=== PATIENT | female | born 1945 | race African-American/Black ===

== ENCOUNTER 2017-11-17 18:20 | Inpatient (IN) | payer OTHER ==
--- NOTE | 2017-11-17 18:23 | PDOC ---
Rapid Medical Evaluation Time Seen by Provider: 11/17/17 18:21 Medical Evaluation: 11/17/17 18:22 I have performed a brief in-person evaluation of this patient. The patient presents with a chief complaint of: "someone from [facility] called and told me to come to the ER, i think they said something about my liver and that it was crucial that i go tot he [facility], they want someone here to call the office and dr. [facility] said he wants to be called." patient reports "i'm just tired from trying to get here fast." denies abd pain, vomiting, fever, chills, diarrhea. +chronic back pain hx of HTN, COPD, IDDM, HLD Pertinent physical exam findings: well appearing, I have ordered the following: CBC, CMP, ekg The patient will proceed to the ED for further evaluation. Discharge Disposition - Diagnosis Abnormal laboratory test - Referrals Referrals: Ju Mayer MD [Primary Care Provider] - - Patient Instructions - Post Discharge Activity
[2017-11-17 19:24] LABS: BASO % 0.6 % (0-2.0); EOS % 2.7 % (0-4.5); HEMATOCRIT 39.6 % (32.4-45.2); HEMOGLOBIN 13.2 GM/dL (10.7-15.3); LYMPH % 34.3 % (8-40); MCH 30.3 pg (25.7-33.7); MCHC 33.3 g/dl (32.0-36.0); MEAN CELL VOLUME 91.2 fl (80-96); MEAN PLT VOLUME 8.7 fl (7.5-11.1); MONO % 12.7 % (3.8-10.2); NEUT % 49.7 % (42.8-82.8); PLATELET COUNT 96 K/MM3 (134-434); RBC 4.34 M/mm3 (3.60-5.2); RDW 14.6 % (11.6-15.6); WHITE BLOOD COUNT 7.5 K/mm3 (4.0-10.0)
[2017-11-17 19:51] LABS: ALBUMIN 3.3 g/dl (3.4-5.0); ANION GAP 8 (8-16); BILIRUBIN,TOTAL 4.2 mg/dL (0.2-1.0); BLOOD UREA NITROGEN 19 mg/dL (7-18); CALCIUM 8.3 mg/dL (8.5-10.1); CHLORIDE 101 mmol/L (98-107); CO2 25 mmol/L (21-32); CREATININE 1.2 mg/dL (0.55-1.02); GLUCOSE,RANDOM 282 mg/dL (74-106); POTASSIUM 3.9 mmol/L (3.5-5.1); SODIUM 134 mmol/L (136-145); TOT PROT 7.9 g/dl (6.4-8.2)
[2017-11-17 19:52] LABS: SGPT/ALT 806 U/L (12-78)
[2017-11-17 19:57] LABS: ALK PHOS 317 U/L (45-117); SGOT/AST 1362 U/L (15-37)
--- NOTE | 2017-11-17 20:00 | PDOC ---
History of Present Illness - General History Source: Patient Exam Limitations: No Limitations - History of Present Illness Initial Comments: 11/17/17 20:15 The patient is a 72 year old female with a significant PMH of HTN, hyperlipidemia, COPD, and insulin-dependent diabetes, who presents to the emergency department after being referred by Dr. Cook office for evaluation of abnormal labs. The patient reports getting labs drawn on 11/11/2017 and receiving a call on 11/15/[address] Cook office that her labs were abnormal and to present to the ED. The patient has no other complaints. The patient denies chest pain, shortness of breath, headache and dizziness. Denies fever, chills, nausea, vomit, diarrhea and constipation. Denies dysuria, frequency, urgency and hematuria. Allergies: NKA Past surgical history: Umbilical hernia repair. Social history: Former smoker. No reported alcohol or drug use. PCP: Dr. Melendez <Melquiades Alcazar - Last Filed: 11/17/17 21:34> - General History Source: Patient <Jesse Garza - Last Filed: 11/18/17 19:16> - General Chief Complaint: Revisit, Lab Variance Stated Complaint: PCP SENT/EVALUATION Time Seen by Provider: 11/17/17 18:21 Past History <Melquiades Alcazar - Last Filed: 11/17/17 21:34> - Past Medical History COPD: Yes Diabetes: Yes HTN: Yes Hypercholesterolemia: Yes Liver Disease: (??) - Surgical History Abdominal Surgery: Yes (hernia) - Suicide/Smoking/Psychosocial Hx Smoking History: Never smoked If you are a former smoker, when did you quit?: 5 years Information on smoking cessation initiated: No Hx Alcohol Use: No Drug/Substance Use Hx: No Substance Use Type: None <Jesse Garza - Last Filed: 11/18/17 19:16> - Past Medical History Allergies/Adverse Reactions: Allergies Allergy/AdvReac Type Severity Reaction Status Date / Time No Known Allergies Allergy Verified 11/17/17 18:27 Review of Systems - Review of Systems Able to Perform ROS?: Yes All Other Systems: Reviewed and Negative (Patient has no complaints) <Melquiades Alcazar - Last Filed: 11/17/17 21:34> *Physical Exam - Vital Signs Last Vital Signs Temp Pulse Resp BP Pulse Ox 98.3 F 90 19 100/55 96 11/17/17 18:23 02 18:23 11/17/17 18:23 11/17/17 18:23 11/17/17 18:23 - Physical Exam Comments: 11/17/17 20:16 GENERAL: Well developed, well nourished. Awake and alert. No acute distress. HEENT: Normocephalic, atraumatic. PERRLA, EOMI. No conjunctival pallor. Sclera are non- icteric. Moist mucous membranes. Oropharynx is clear. NECK: Supple. Full ROM. No JVD. Carotid pulses 2+ and symmetric, without bruits. No thyromegaly. No lymphadenopathy. CARDIOVASCULAR: Regular rate and rhythm. No murmurs, rubs, or gallops. Distal pulses are 2+ and symmetric. PULMONARY: No evidence of respiratory distress. Lungs clear to auscultation bilaterally. No wheezing, rales or rhonchi. ABDOMINAL: Soft. Non-tender. Non-distended. No rebound or guarding. No organomegaly. Normoactive bowel sounds. MUSCULOSKELETAL Normal range of motion at all joints. No bony deformities or tenderness. No CVA tenderness. EXTREMITIES: No cyanosis. No clubbing. No edema. No calf tenderness. SKIN: Warm and dry. Normal capillary refill. No rashes. No jaundice. NEUROLOGICAL: Alert, awake, appropriate. Cranial nerves 2-12 intact. No deficits to light touch and temperature in face, upper extremities and lower extremities. No motor deficits in the in face, upper extremities and lower extremities. Normoreflexic in the upper and lower extremities. Normal speech. Toes are downgoing bilaterally. Gait is normal without ataxia. PSYCHIATRIC: Cooperative. Good eye contact. Appropriate mood and affect. <Melquiades Alcazar - Last Filed: 11/17/17 21:34> - Vital Signs Last Vital Signs Temp Pulse Resp BP Pulse Ox 98.3 F 90 19 100/55 96 11/17/17 18:23 11/17/17 18:23 11/17/17 18:23 11/17/17 18:23 11/17/17 18:23 <Jesse Garza - Last Filed: 11/18/17 19:16> Heart Score/ECG Review #1 11/17/17 21:34 Vent rate 73 bpm Normal sinus rhythm ST & T wave abnormality, consider anterolateral ischemia Abnormal ECG <Melquiades Alcazar - Last Filed: 11/17/17 21:34> ED Treatment Course - LABORATORY CBC & Chemistry Diagram: 11/17/17 18:53 11/17/17 18:42 - ADDITIONAL ORDERS Additional order review: Laboratory Results 11/17/17 18:42 Sodium 134 L Potassium 3.9 Chloride 101 Carbon Dioxide 25 Anion Gap 8 BUN 19 H Creatinine 1.2 H Creat Clearance w eGFR 44.29 Random Glucose 282 H Calcium 8.3 L Total Bilirubin 4.2 H AST 1362 H ALT 806 H Alkaline Phosphatase 317 H Total Protein 7.9 Albumin 3.3 L 11/17/17 18:53 RBC 4.34 MCV 91.2 MCHC 33.3 RDW 14.6 MPV 8.7 Neutrophils % 49.7 Lymphocytes % 34.3 Monocytes % 12.7 H Eosinophils % 2.7 Basophils % 0.6 <Melquiades Alcazar - Last Filed: 11/17/17 21:34> - LABORATORY CBC & Chemistry Diagram: 11/18/17 06:20 11/18/17 06:20 - ADDITIONAL ORDERS Additional order review: Laboratory Results 11/17/17 18:42 Sodium 134 L Potassium 3.9 Chloride 101 Carbon Dioxide 25 Anion Gap 8 BUN 19 H Creatinine 1.2 H Creat Clearance w eGFR 44.29 Random Glucose 282 H Calcium 8.3 L Total Bilirubin 4.2 H AST 1362 H ALT 806 H Alkaline Phosphatase 317 H Total Protein 7.9 Albumin 3.3 L 11/17/17 18:53 RBC 4.34 MCV 91.2 MCHC 33.3 RDW 14.6 MPV 8.7 Neutrophils % 49.7 Lymphocytes % 34.3 Monocytes % 12.7 H Eosinophils % 2.7 Basophils % 0.6 <Jesse Garza - Last Filed: 11/18/17 19:16> Medical Decision Making - Medical Decision Making 11/18/17 19:16 Dr. Garza: The scribe's documentation has been prepared under my direction and personally reviewed by me in its entirery. I confirm that the note above accurately reflects all work, treatment, procedures, and medical decision making performed by me. <Jesse Garza - Last Filed: 11/18/17 19:16> *DC/Admit/Observation/Transfer - Attestations Scribe Attestion: 11/17/17 20:17 Documentation prepared by Melquiades Alcazar, acting as medical technologist chemistry for Jesse Garza DO. <Melquiades Alcazar - Last Filed: 11/17/17 21:34> - Discharge Dispostion Admit: Yes <Jesse Garza - Last Filed: 11/18/17 19:16> Diagnosis at time of Disposition: Abnormal laboratory test, Elevated transaminase level - Discharge Dispostion Condition at time of disposition: Stable
[2017-11-17 23:23] LABS: URINE APPEARANCE SLCLOUDY; URINE BILIRUBIN NEGATIVE (NEGATIVE); URINE BLOOD NEGATIVE (NEGATIVE); URINE COLOR DKYELLOW; URINE GLUCOSE (UA) 1+ (NEGATIVE); URINE KETONE NEGATIVE (NEGATIVE); URINE LEUK ESTERASE NEGATIVE (NEGATIVE); URINE NITRITE NEGATIVE (NEGATIVE); URINE PROTEIN NEGATIVE (NEGATIVE); URINE UROBILINOGEN 4.0 E.U/dl mg/dL (0.2-1.0)
--- NOTE | 2017-11-17 23:53 | HP ---
Admitting History and Physical - Primary Care Physician PCP: Ju Melendez - Admission Chief Complaint: Abnormal Lab Values History of Present Illness: This is a 72 y/o woman with a past medical history of HTN, HLD, COPD, IDDM. Who presents to the ED sent in by her PMD for abnormal lab values- Transaminits. Patient reports having dark "orange-brown urine" for 6 weeks. Patient also reports having back pain which is progressively worse. Patient denies having abnormal liver function tests in the past. Patient denies abdominal pain, N/V/D , constipation. Patient denies fever, chills, cough, SOB, CP. History Source: Patient Limitations to Obtaining History: No Limitations - Past Medical History Cardiovascular: Yes: HTN, Hyperlipdemia Pulmonary: Yes: COPD Endocrine: Yes: Diabetes Mellitus - Past Surgical History Past Surgical History: Yes: Hernia Repair (Umbilical) - Smoking History Smoking history: Never smoked If you are a former smoker, when did you quit?: 5 years - Alcohol/Substance Use Hx Alcohol Use: No History of Substance Use: reports: None - Social History Usual Living Arrangement: Yes: Alone ADL: Independent (ambulates with walker) Occupation: retired History of Recent Travel: No Home Medications - Allergies Allergies/Adverse Reactions: Allergies Allergy/AdvReac Type Severity Reaction Status Date / Time No Known Allergies Allergy Verified 11/17/17 18:27 - Home Medications Home Medications (free text): olmesartan/amlodipine/HCTZ 40-10-25 mg po daily. Donepezil 5mg po daily. Asa 81mg po daily. Loratidine 10mg po daily. MVI 1 tab po daily. Toujeo 26 units SQ am. Toujeo 20 units SQ pm. Pro Air 180mcg 2 puffs inh Q6h PRN. Symbicort 160mcg/4.5 mcg inh Q12h. Floanse 1 spray each nare BID. Atorvastatin 40mg po daily Family Disease History - Family Disease History Family Disease History: Diabetes: Grandparent (Breast), Heart Disease: Grandparent, CA: Grandparent, Mother (Breast), Other: Daughter (L- Breast Nodules , 2nd Daughter- Hypothyroid) Review of Systems - Review of Systems Constitutional: reports: No Symptoms Eyes: reports: No Symptoms HENT: reports: No Symptoms Neck: reports: No Symptoms Cardiovascular: reports: No Symptoms Respiratory: reports: No Symptoms Gastrointestinal: reports: No Symptoms Genitourinary: reports: Other (dark brown- orange urine) Breasts: reports: No Symptoms Reported Musculoskeletal: reports: Back Pain Integumentary: reports: No Symptoms Neurological: reports: No Symptoms Endocrine: reports: No Symptoms Hematology/Lymphatic: reports: No Symptoms Psychiatric: reports: No Symptoms Physical Examination Vital Signs: Vital Signs Temperature 98.3 F 11/17/17 18:23 Pulse Rate 90 11/17/17 18:23 Respiratory Rate 19 11/17/17 18:23 Blood Pressure 100/55 11/17/17 18:23 O2 Sat by Pulse Oximetry (%) 96 11/17/17 18:23 Constitutional: Yes: Well Nourished, No Distress, Obese Eyes: Yes: WNL, Conjunctiva Clear, EOM Intact, PERRL HENT: Yes: WNL, Atraumatic, Normocephalic Neck: Yes: WNL, Supple, Trachea Midline Cardiovascular: Yes: WNL, Regular Rate and Rhythm, S1, S2 Respiratory: Yes: WNL, Regular, CTA Bilaterally Gastrointestinal: Yes: Normal Bowel Sounds, Abdomen, Obese, Distention, Hepatomegaly. No: Tenderness, Tenderness, Epigastrium, Tenderness, Rebound ...Rectal Exam: Yes: Deferred Renal/: Yes: WNL Breast(s): Yes: WNL Musculoskeletal: Yes: Back Pain Extremities: Yes: WNL Edema: No Peripheral Pulses WNL: Yes Integumentary: Yes: WNL Neurological: Yes: WNL, Alert, Oriented, Cran Nerves II-XII Intact ...Motor Strength: WNL Psychiatric: Yes: WNL, Alert, Oriented Labs: CBC, BMP 11/17/17 18:53 11/17/17 18:42 Laboratory Results - last 24 hr 11/17/17 11/17/17 11/17/17 18:40 18:42 18:53 WBC 7.5 RBC 4.34 Hgb 13.2 Hct 39.6 MCV 91.2 MCH 30.3 MCHC 33.3 RDW 14.6 Plt Count 96 L MPV 8.7 Neutrophils % 49.7 Lymphocytes % 34.3 Monocytes % 12.7 H Eosinophils % 2.7 Basophils % 0.6 Sodium 134 L Potassium 3.9 Chloride 101 Carbon Dioxide 25 Anion Gap 8 BUN 19 H Creatinine 1.2 H Creat Clearance w eGFR 44.29 POC Glucometer Random Glucose 282 H Calcium 8.3 L Ferritin Total Bilirubin 4.2 H AST 1362 H ALT 806 H Alkaline Phosphatase 317 H Total Protein 7.9 Albumin 3.3 L Urine Color Urine Appearance Urine pH Ur Specific [place] Urine Protein Urine Glucose (UA) Urine Ketones Urine Blood Urine Nitrite Urine Bilirubin Urine Urobilinogen Ur Leukocyte Esterase Acetaminophen < 2.0 L 11/17/17 11/18/17 11/18/17 23:08 06:20 06:20 WBC 7.7 RBC 4.13 Hgb 12.2 Hct 37.5 MCV 90.9 MCH 29.5 MCHC 32.5 RDW 14.7 Plt Count 89 L MPV 8.4 Neutrophils % 49.2 Lymphocytes % 33.5 Monocytes % 13.2 H Eosinophils % 3.3 Basophils % 0.8 Sodium 137 Potassium 3.6 Chloride 104 Carbon Dioxide 25 Anion Gap 8 BUN 15 Creatinine 1.0 Creat Clearance w eGFR 54.66 POC Glucometer Random Glucose 145 H Calcium 8.2 L Ferritin Total Bilirubin 4.4 H AST 1429 H ALT 761 H Alkaline Phosphatase 280 H Total Protein 7.3 Albumin 3.0 L Urine Color Dkyellow Urine Appearance Slcloudy Urine pH 5.0 Ur Specific [place] 1.006 Urine Protein Negative Urine Glucose (UA) 1+ H Urine Ketones Negative Urine Blood Negative Urine Nitrite Negative Urine Bilirubin Negative Urine Urobilinogen 4.0 e.u/dl H Ur Leukocyte Esterase Negative Acetaminophen 11/18/17 11/18/17 06:23 08:45 WBC RBC Hgb Hct MCV MCH MCHC RDW Plt Count MPV Neutrophils % Lymphocytes % Monocytes % Eosinophils % Basophils % Sodium Potassium Chloride Carbon Dioxide Anion Gap BUN Creatinine Creat Clearance w eGFR POC Glucometer 155 Random Glucose Calcium Ferritin 5014.020 H Total Bilirubin AST ALT Alkaline Phosphatase Total Protein Albumin Urine Color Urine Appearance Urine pH Ur Specific [place] Urine Protein Urine Glucose (UA) Urine Ketones Urine Blood Urine Nitrite Urine Bilirubin Urine Urobilinogen Ur Leukocyte Esterase Acetaminophen Intake & Output 11/15/17 11/16/17 11/17/17 11/18/17 23:59 23:59 23:59 23:59 Intake Total 126 Balance 126 Weight 74.843 kg 78.698 kg Imaging - Results Chest X-ray: Image Reviewed Ultrasound: Image Reviewed EKG: Pending Problem List - Problems (1) Elevated transaminase level Code(s): R74.0 - NONSPEC ELEV OF LEVELS OF TRANSAMNS & LACTIC ACID DEHYDRGNSE (2) Cholestasis Code(s): K83.1 - OBSTRUCTION OF BILE DUCT (3) Abnormal laboratory test Code(s): R89.9 - UNSP ABNORMAL FINDING IN SPECIMENS FROM OTH ORG/TISS (4) HTN (hypertension) Code(s): I10 - ESSENTIAL (PRIMARY) HYPERTENSION (5) HLD (hyperlipidemia) Code(s): E78.5 - HYPERLIPIDEMIA, UNSPECIFIED (6) COPD (chronic obstructive pulmonary disease) Code(s): J44.9 - CHRONIC OBSTRUCTIVE PULMONARY DISEASE, UNSPECIFIED (7) IDDM (insulin dependent diabetes mellitus) Code(s): E11.9 - TYPE 2 DIABETES MELLITUS WITHOUT COMPLICATIONS; Z79.4 - [facility] (CURRENT) USE OF INSULIN (8) DVT prophylaxis Code(s): COJ4913 - Assessment/Plan This is a 72 y/o woman with a PMHx of: HTN, HLD, COPD, IDDM. Admitted for Acute Transaminitis with Cholestasis Plan: 1. Acute Transaminitis - Likely due to stone vs medications vs Hepatitis - Abdominal US- pending - Appreciate GI Consult - Hepatitis Panel in am - Will hold- Tribenzor, Loratidine, Atorvastatin secondary to hepatic impairment - Will hold all po meds until eval by GI - Repeat CMP in am - Monitor vitals - Clear Diet - Consider MRC r/o cholangitis 2. JANE - Gentle IVF - Repeat CMP in am 3. Hypertension - Stable - Monitor BP - Hold Tribenzor 2/2 hepatic impairment - Consider Atenolol - Consider Cardiac consult for recommendations 4. COPD - Stable - Continue home meds 5. Hyperlipidemia - Hold Atorvastatin secondary to transaminitis 6. Diabetes Mellitus - Stable - BGMs - Resume home meds when diet is resumed 7. F/E/N - NS@42cc/hr - Replete lytes prn - Clear Diet- Na, ADA 8. DVT Prophylaxis - OOB - SCDs - Heparin SQ Code Status: Full Code Dispo: Requires Inpatient Care Visit type - Emergency Visit Emergency Visit: Yes ED Registration Date: 11/17/17 Care time: The patient presented to the Emergency Department on the above date and was hospitalized for further evaluation of their emergent condition. - New Patient This patient is new to me today: Yes Date on this admission: 11/17/17 - Critical Care Critical Care patient: No
[2017-11-18] MEDS: SODIUM CHLORIDE 1,000 ML IV SCH ×3 (00:59→22:11)
[2017-11-18 04:00] VITALS: BMI 30.7
[2017-11-18 07:26] LABS: BASO % 0.8 % (0-2.0); EOS % 3.3 % (0-4.5); HEMATOCRIT 37.5 % (32.4-45.2); HEMOGLOBIN 12.2 GM/dL (10.7-15.3); LYMPH % 33.5 % (8-40); MCH 29.5 pg (25.7-33.7); MCHC 32.5 g/dl (32.0-36.0); MEAN CELL VOLUME 90.9 fl (80-96); MEAN PLT VOLUME 8.4 fl (7.5-11.1); MONO % 13.2 % (3.8-10.2); NEUT % 49.2 % (42.8-82.8); PLATELET COUNT 89 K/MM3 (134-434); RBC 4.13 M/mm3 (3.60-5.2); RDW 14.7 % (11.6-15.6); WHITE BLOOD COUNT 7.7 K/mm3 (4.0-10.0)
--- NOTE | 2017-11-18 08:42 | CON.GI ---
Consult - History of Present Illness Chief Complaint: transaminitis with cholestasis History of Present Illness: Chart reviewed This is a 72 y/o woman with a past medical history of HTN, HLD, COPD, IDDM. Who presents to the ED sent in by her PMD for abnormal lab values- Transaminits. AST >1300, ALT 800, ALP 300, TBili 4. Patient reports having dark "orange-brown urine" for 6 weeks. Reports no dysphagia, odynophagia, dyspepsia, jaundice, weight loss, fever. Patient denies having abnormal liver function tests in the past. Reports no new medications, or changes in dosages of existing medications. Reports no OTC, herbals,. Denies ETOH, elicit drug use now, or in the past. No history of obvious risk factors for viral hepatitis. Negative for autoimmune, genetic liver disease family history. US of the liver showed features consistent with chronic liver disease. - History Source History Provided By: Patient, Medical Record Limitations to Obtaining History: No Limitations - Alcohol/Substance Use Hx Alcohol Use: No - Smoking History Smoking history: Former smoker Have you smoked in the past 12 months: No If you are a former smoker, when did you quit?: 5 years ago Home Medications - Allergies Allergies/Adverse Reactions: Allergies Allergy/AdvReac Type Severity Reaction Status Date / Time No Known Allergies Allergy Verified 11/17/17 18:27 Family Disease History - Family Disease History Family History: Unremarkable Review of Systems Findings/Remarks: As per HPI, H&P Physical Exam-GI Vital Signs: Vital Signs Temperature 100.1 F H 11/18/17 06:26 Pulse Rate 65 11/18/17 06:00 Respiratory Rate 20 11/18/17 06:00 Blood Pressure 133/81 11/18/17 06:00 O2 Sat by Pulse Oximetry (%) 97 11/18/17 03:30 Constitutional: Yes: Well Nourished, No Distress, Calm Eyes: Yes: Conjunctiva Clear HENT: Yes: Atraumatic Neck: Yes: Supple Cardiovascular: Yes: Regular Rate and Rhythm Respiratory: Yes: Regular Gastrointestinal Inspection: No: Ascites, Distention ...Auscultate: Yes: Normoactive Bowel Sounds ...Palpate: Yes: Soft. No: Firm/Rigid, Guarding, Mass, Tenderness, Tenderness, Epigastium, Tenderness, Rebound Neurological: Yes: Alert, Oriented Labs: CBC, BMP 11/18/17 06:20 Laboratory Tests 11/17/17 11/17/17 11/17/17 18:40 18:42 18:53 WBC 7.5 RBC 4.34 Hgb 13.2 Hct 39.6 MCV 91.2 MCH 30.3 MCHC 33.3 RDW 14.6 Plt Count 96 L MPV 8.7 Neutrophils % 49.7 Lymphocytes % 34.3 Monocytes % 12.7 H Eosinophils % 2.7 Basophils % 0.6 Sodium 134 L Potassium 3.9 Chloride 101 Carbon Dioxide 25 Anion Gap 8 BUN 19 H Creatinine 1.2 H Creat Clearance w eGFR 44.29 POC Glucometer Random Glucose 282 H Calcium 8.3 L Ferritin Total Bilirubin 4.2 H AST 1362 H ALT 806 H Alkaline Phosphatase 317 H Total Protein 7.9 Albumin 3.3 L Urine Color Urine Appearance Urine pH Ur Specific [place] Urine Protein Urine Glucose (UA) Urine Ketones Urine Blood Urine Nitrite Urine Bilirubin Urine Urobilinogen Ur Leukocyte Esterase Acetaminophen < 2.0 L IgG CMV IgM Ab Hepatitis A IgM Ab Hepatitis A Ab Total Hep Bs Antigen Hep Bs Antibody Hep B Core Total Ab Hep B Core IgM Ab Hepatitis C Antibody VZV IgG Antibody VZV DNA (PCR) 11/17/17 11/18/17 11/18/17 23:08 06:20 06:20 WBC 7.7 RBC 4.13 Hgb 12.2 Hct 37.5 MCV 90.9 MCH 29.5 MCHC 32.5 RDW 14.7 Plt Count 89 L MPV 8.4 Neutrophils % 49.2 Lymphocytes % 33.5 Monocytes % 13.2 H Eosinophils % 3.3 Basophils % 0.8 Sodium 137 Potassium 3.6 Chloride 104 Carbon Dioxide 25 Anion Gap 8 BUN 15 Creatinine 1.0 Creat Clearance w eGFR 54.66 POC Glucometer Random Glucose 145 H Calcium 8.2 L Ferritin Total Bilirubin 4.4 H AST 1429 H ALT 761 H Alkaline Phosphatase 280 H Total Protein 7.3 Albumin 3.0 L Urine Color Dkyellow Urine Appearance Slcloudy Urine pH 5.0 Ur Specific [place] 1.006 Urine Protein Negative Urine Glucose (UA) 1+ H Urine Ketones Negative Urine Blood Negative Urine Nitrite Negative Urine Bilirubin Negative Urine Urobilinogen 4.0 e.u/dl H Ur Leukocyte Esterase Negative Acetaminophen IgG CMV IgM Ab Hepatitis A IgM Ab Hepatitis A Ab Total Hep Bs Antigen Hep Bs Antibody Hep B Core Total Ab Hep B Core IgM Ab Hepatitis C Antibody VZV IgG Antibody VZV DNA (PCR) 11/18/17 11/18/17 11/18/17 06:20 06:23 08:45 WBC RBC Hgb Hct MCV MCH MCHC RDW Plt Count MPV Neutrophils % Lymphocytes % Monocytes % Eosinophils % Basophils % Sodium Potassium Chloride Carbon Dioxide Anion Gap BUN Creatinine Creat Clearance w eGFR POC Glucometer 155 Random Glucose Calcium Ferritin Total Bilirubin AST ALT Alkaline Phosphatase Total Protein Albumin Urine Color Urine Appearance Urine pH Ur Specific [place] Urine Protein Urine Glucose (UA) Urine Ketones Urine Blood Urine Nitrite Urine Bilirubin Urine Urobilinogen Ur Leukocyte Esterase Acetaminophen IgG CMV IgM Ab < 30.0 Hepatitis A IgM Ab Negative Hepatitis A Ab Total Negative Hep Bs Antigen Negative Negative Hep Bs Antibody Non reactive Hep B Core Total Ab Negative Hep B Core IgM Ab Negative Hepatitis C Antibody 0.1 VZV IgG Antibody VZV DNA (PCR) 11/18/17 11/18/17 11/18/17 08:45 08:45 08:45 WBC RBC Hgb Hct MCV MCH MCHC RDW Plt Count MPV Neutrophils % Lymphocytes % Monocytes % Eosinophils % Basophils % Sodium Potassium Chloride Carbon Dioxide Anion Gap BUN Creatinine Creat Clearance w eGFR POC Glucometer Random Glucose Calcium Ferritin 5014.020 H Total Bilirubin AST ALT Alkaline Phosphatase Total Protein Albumin Urine Color Urine Appearance Urine pH Ur Specific [place] Urine Protein Urine Glucose (UA) Urine Ketones Urine Blood Urine Nitrite Urine Bilirubin Urine Urobilinogen Ur Leukocyte Esterase Acetaminophen IgG 2140 H CMV IgM Ab Hepatitis A IgM Ab Hepatitis A Ab Total Hep Bs Antigen Hep Bs Antibody Hep B Core Total Ab Hep B Core IgM Ab Hepatitis C Antibody <0.1 VZV IgG Antibody > 4000 VZV DNA (PCR) Cancelled 11/18/17 11/18/17 11/18/17 11:53 16:40 22:05 WBC RBC Hgb Hct MCV MCH MCHC RDW Plt Count MPV Neutrophils % Lymphocytes % Monocytes % Eosinophils % Basophils % Sodium Potassium Chloride Carbon Dioxide Anion Gap BUN Creatinine Creat Clearance w eGFR POC Glucometer 298 386 228 Random Glucose Calcium Ferritin Total Bilirubin AST ALT Alkaline Phosphatase Total Protein Albumin Urine Color Urine Appearance Urine pH Ur Specific [place] Urine Protein Urine Glucose (UA) Urine Ketones Urine Blood Urine Nitrite Urine Bilirubin Urine Urobilinogen Ur Leukocyte Esterase Acetaminophen IgG CMV IgM Ab Hepatitis A IgM Ab Hepatitis A Ab Total Hep Bs Antigen Hep Bs Antibody Hep B Core Total Ab Hep B Core IgM Ab Hepatitis C Antibody VZV IgG Antibody VZV DNA (PCR) 11/19/17 06:26 WBC RBC Hgb Hct MCV MCH MCHC RDW Plt Count MPV Neutrophils % Lymphocytes % Monocytes % Eosinophils % Basophils % Sodium Potassium Chloride Carbon Dioxide Anion Gap BUN Creatinine Creat Clearance w eGFR POC Glucometer 129 Random Glucose Calcium Ferritin Total Bilirubin AST ALT Alkaline Phosphatase Total Protein Albumin Urine Color Urine Appearance Urine pH Ur Specific [place] Urine Protein Urine Glucose (UA) Urine Ketones Urine Blood Urine Nitrite Urine Bilirubin Urine Urobilinogen Ur Leukocyte Esterase Acetaminophen IgG CMV IgM Ab Hepatitis A IgM Ab Hepatitis A Ab Total Hep Bs Antigen Hep Bs Antibody Hep B Core Total Ab Hep B Core IgM Ab Hepatitis C Antibody VZV IgG Antibody VZV DNA (PCR) Imaging - Results Ultrasound: Report Reviewed Problem List - Problems (1) Cholestasis Code(s): K83.1 - OBSTRUCTION OF BILE DUCT (2) Transaminitis Code(s): R74.0 - NONSPEC ELEV OF LEVELS OF TRANSAMNS & LACTIC ACID DEHYDRGNSE (3) Elevated transaminase level Code(s): R74.0 - NONSPEC ELEV OF LEVELS OF TRANSAMNS & LACTIC ACID DEHYDRGNSE Assessment/Plan A 72 yof with abnormla liver pannel. Hepatocellular pattern with cholestasis in settings of no apparent events to suspect ischemic, toxic, drug, or viral hepatitis. R/o autoimmune, genetic etiologies. Metabolic syndrome, ARVIZU, NAFLD is likely present, however it usually presets milder transaminitis. Stop all non-essential medications Blood tests ordered to evaluate for viral, autoimmune, and genetic etiologies. MRCP/MRI pending blood work results.
[2017-11-18 08:43] LABS: CHLORIDE 104 mmol/L (98-107); POTASSIUM 3.6 mmol/L (3.5-5.1); SODIUM 137 mmol/L (136-145)
[2017-11-18 08:58] LABS: ALK PHOS 280 U/L (45-117); ANION GAP 8 (8-16); BILIRUBIN,TOTAL 4.4 mg/dL (0.2-1.0); BLOOD UREA NITROGEN 15 mg/dL (7-18); CALCIUM 8.2 mg/dL (8.5-10.1); CO2 25 mmol/L (21-32); GLUCOSE,RANDOM 145 mg/dL (74-106); TOT PROT 7.3 g/dl (6.4-8.2)
[2017-11-18 08:59] LABS: SGOT/AST 1429 U/L (15-37); SGPT/ALT 761 U/L (12-78)
[2017-11-18] MEDS ORDERED: INSULIN (NOVOLOG) ASPART 100 UNITS/ML 10ML VIAL ONE ×2 (11:57→22:01)
[2017-11-18] MEDS: BUDESONIDE/FORMETEROL FUMARATE 160/4.5 mcg INHALER IH SCH ×2 (12:03→22:07)
[2017-11-18] MEDS: FLUTICASONE PROP 0.05% 16 GM NASAL SPRAY NS SCH ×2 (12:04→22:06)
--- NOTE | 2017-11-18 12:09 | EKG ---
Test Reason : Blood Pressure : / mmHG Vent. Rate : 073 BPM Atrial Rate : 073 BPM P-R Int : 186 ms QRS Dur : 088 ms QT Int : 426 ms P-R-T Axes : 062 -26 103 degrees QTc Int : 469 ms POOR DATA QUALITY, INTERPRETATION MAY BE ADVERSELY AFFECTED NORMAL SINUS RHYTHM ABNORMAL ECG WHEN COMPARED WITH ECG OF 24-JUN-2011 07:29, PREMATURE ATRIAL COMPLEXES ARE NO LONGER PRESENT NONSPECIFIC T WAVE ABNORMALITY NO LONGER EVIDENT IN INFERIOR LEADS T WAVE INVERSION MORE EVIDENT IN ANTERIOR LEADS QT HAS LENGTHENED Confirmed by MUSTAPHA SANTIAGO MD ([id number]) on 11/18/2017 12:08:49 PM Referred By: Confirmed By:MUSTAPHA SANTIAGO MD
[2017-11-18] MEDS ORDERED: PT OWN MED DRAWER 7, Y5N ONE (12:20)
--- NOTE | 2017-11-18 13:19 | PN ---
Progress Note, Physician Chief Complaint: awake alert complaining of right sided ear ache - Current Medication List Current Medications: Active Medications Budesonide/Formoterol Fumarate (Symbicort 160/4.5mcg -) 1 puff IH BID [facility] Last Admin: 11/18/17 12:03 Dose: 1 puff Fluticasone Propionate (Flonase -) 1 spray NS BID [facility] Last Admin: 11/18/17 12:04 Dose: 1 spray Sodium Chloride (Normal Saline -) 1,000 mls @ 42 mls/hr IV ASDIR [facility] Last Admin: 11/18/17 11:04 Dose: 42 mls/hr - Objective Vital Signs: Vital Signs Temperature 99.6 F 11/18/17 10:00 Pulse Rate 92 H 11/18/17 10:00 Respiratory Rate 18 11/18/17 10:00 Blood Pressure 146/58 11/18/17 10:00 O2 Sat by Pulse Oximetry (%) 97 11/18/17 09:00 Constitutional: Yes: Calm Cardiovascular: Yes: Regular Rate and Rhythm, S1, S2 Respiratory: Yes: CTA Bilaterally Gastrointestinal: Yes: Normal Bowel Sounds, Soft Edema: No Labs: CBC, BMP 11/18/17 06:20 11/18/17 06:20 Problem List - Problems (1) Abnormal laboratory test Assessment/Plan: appreicate GI note work up in progress Code(s): R89.9 - UNSP ABNORMAL FINDING IN SPECIMENS FROM OTH ORG/TISS (2) Elevated transaminase level Assessment/Plan: ultrasound noted testing to r/o celiac,hepatitis, has been ordered avoid hepatotoxic agents Code(s): R74.0 - NONSPEC ELEV OF LEVELS OF TRANSAMNS & LACTIC ACID DEHYDRGNSE (3) Ear ache Assessment/Plan: ENT Code(s): H92.09 - OTALGIA, UNSPECIFIED EAR (4) IDDM (insulin dependent diabetes mellitus) Assessment/Plan: sliding scale Code(s): E11.9 - TYPE 2 DIABETES MELLITUS WITHOUT COMPLICATIONS; Z79.4 - SDET (CURRENT) USE OF INSULIN
[2017-11-18] MEDS ORDERED: PNEUMOC 13-VAL CONJ-DIP CRM/PF 0.5 ML DISP.SYRIN IM ONE (14:00)
[2017-11-18] MEDS: INSULIN SLIDING SCALE (NOVOLOG) 1 VIAL SQ SCH (16:41)
--- NOTE | 2017-11-18 17:51 | CON.ENT ---
Consult Consult Specialty:: ENT Referred by:: Dr. Nick Mcdonnell Reason for Consultation:: Right ear pain - History of Present Illness Chief Complaint: right ear pain History of Present Illness: Prior to admission on and off for maybe 3 weeks she has intermittent right otalgia, but feels she hears OK. She denies tinnitus and vertigo. This feeling has continues on/off, lasting seconds. She has a past medical history of HTN, HLD, COPD, IDDM. Who presents to the ED sent in by her PMD for abnormal lab values. Patient reports having dark "orange-brown urine" for 6 weeks. Patient also reports having back pain which is progressively worse. - History Source History Provided By: Patient, Medical Record Limitations to Obtaining History: No Limitations - Past Medical History Cardio/Vascular: Yes: HTN, Hyperlipdemia Pulmonary: Yes: COPD Endocrine: Yes: Diabetes Mellitus - Past Surgical History Past Surgical History: Yes: Hernia Repair (Umbilical) - Alcohol/Substance Use Hx Alcohol Use: No History of Substance Use: reports: None - Smoking History Smoking history: Never smoked Have you smoked in the past 12 months: No If you are a former smoker, when did you quit?: 5 years - Social History ADL: Independent (ambulates with walker) Occupation: retired History of Recent Travel: No Home Medications - Allergies Allergies/Adverse Reactions: Allergies Allergy/AdvReac Type Severity Reaction Status Date / Time No Known Allergies Allergy Verified 11/17/17 18:27 Family Disease History - Family Disease History Family Disease History: Diabetes: Grandparent (Breast), Heart Disease: Grandparent, CA: Grandparent, Mother (Breast), Other: Daughter (L- Breast Nodules , 2nd Daughter- Hypothyroid) Other Family History: 2nd Daughter- Hypothyroid Physical Exam-ENT Vital Signs: Vital Signs Temperature 99.6 F 11/18/17 16:00 Pulse Rate 86 11/18/17 16:00 Respiratory Rate 20 11/18/17 16:00 Blood Pressure 156/74 11/18/17 16:00 O2 Sat by Pulse Oximetry (%) 97 11/18/17 09:00 Constitutional: Yes: Well Nourished, No Distress Head: Yes: WNL, Atraumatic, Normocephalic Face: Yes: WNL, Symmetrical Eyes: Yes: WNL, Conjunctiva Clear Nose: Yes: WNL Nasal Passage: Yes: WNL Oral/Pharynx: Yes: WNL Outer Ear: Yes: WNL Ear Canal: Yes: Cerumen (Right hard wax, with superior air passage, left canal and TM are normal.) Neck: Yes: WNL, Supple Problem List - Problems (1) Otalgia of right ear Assessment/Plan: Right hard wax, will order debrox ear drops and she will see me after discharge for further cleaning and audiometric testing Code(s): H92.01 - OTALGIA, RIGHT EAR
[2017-11-18] MEDS: CARBAMIDE PEROXIDE 6.5% OTIC 15 ML BOTTLE AD SCH (22:07)
[2017-11-19 06:06] LABS: HBSAG SCREEN Negative (Negative); HEP B CORE AB, TOT Negative (Negative)
[2017-11-19] MEDS: SODIUM CHLORIDE 1,000 ML IV SCH ×3 (06:28→21:33)
[2017-11-19] MEDS: INSULIN SLIDING SCALE (NOVOLOG) 1 VIAL SQ SCH ×3 (06:28→17:05)
[2017-11-19 08:07] LABS: CMV IgM < 30.0 AU/mL (0.0-29.9); IGG IMMUNOGLOBULIN 2140 mg/dL (700-1600)
[2017-11-19 09:07] LABS: ALBUMIN 3.1 g/dl (3.4-5.0); ANION GAP 7 (8-16); BILIRUBIN,DIRECT 3.5 mg/dL (0.0-0.2); BILIRUBIN,TOTAL 4.9 mg/dL (0.2-1.0); BLOOD UREA NITROGEN 9 mg/dL (7-18); CALCIUM 8.2 mg/dL (8.5-10.1); CHLORIDE 105 mmol/L (98-107); CO2 28 mmol/L (21-32); CREATININE 1.1 mg/dL (0.55-1.02); GLUCOSE,RANDOM 123 mg/dL (74-106); POTASSIUM 3.9 mmol/L (3.5-5.1); SODIUM 140 mmol/L (136-145); TOT PROT 7.5 g/dl (6.4-8.2)
[2017-11-19 09:13] LABS: ALK PHOS 277 U/L (45-117)
[2017-11-19 09:16] LABS: SGOT/AST 1632 U/L (15-37); SGPT/ALT 817 U/L (12-78)
[2017-11-19] MEDS ORDERED: PT OWN MED DRAWER 7, Y5N ONE (09:23)
--- NOTE | 2017-11-19 09:29 | PN ---
Progress Note, Physician History of Present Illness: No events Comfortable. Transaminitis not improving. - Current Medication List Current Medications: Active Medications Budesonide/Formoterol Fumarate (Symbicort 160/4.5mcg -) 1 puff IH BID [facility] Last Admin: 11/18/17 22:07 Dose: 1 puff Carbamide Perox/Anhydrous Glycerin (Debrox -) 5 drop AD BID [facility] Stop: 11/25/17 21:59 Last Admin: 11/18/17 22:07 Dose: 5 drop Fluticasone Propionate (Flonase -) 1 spray NS BID [facility] Last Admin: 11/18/17 22:06 Dose: 1 spray Sodium Chloride (Normal Saline -) 1,000 mls @ 42 mls/hr IV ASDIR [facility] Last Admin: 11/19/17 08:51 Dose: 42 mls/hr Insulin Aspart (Novolog Vial Sliding Scale -) 1 vial SQ TIDAC [facility] PRN Reason: Protocol Last Admin: 11/19/17 06:28 Dose: Not Given - Objective Vital Signs: Vital Signs Temperature 98.9 F 11/19/17 04:00 Pulse Rate 88 11/19/17 04:00 Respiratory Rate 20 11/19/17 04:00 Blood Pressure 138/75 11/19/17 04:00 O2 Sat by Pulse Oximetry (%) 97 11/18/17 21:00 Constitutional: Yes: No Distress Eyes: Yes: Conjunctiva Clear HENT: Yes: Atraumatic Neck: Yes: Supple Cardiovascular: Yes: Regular Rate and Rhythm Respiratory: Yes: Regular Gastrointestinal: Yes: Soft. No: Melena, Rectal Bleeding, Tenderness, Vomiting Neurological: Yes: Alert, Oriented Labs: CBC, BMP 11/18/17 06:20 11/19/17 07:30 CBCD WBC 7.7 K/mm3 (4.0-10.0) 11/18/17 06:20 RBC 4.13 M/mm3 (3.60-5.2) 11/18/17 06:20 Hgb 12.2 GM/dL (10.7-15.3) 11/18/17 06:20 Hct 37.5 % (32.4-45.2) 11/18/17 06:20 MCV 90.9 fl (80-96) 11/18/17 06:20 MCHC 32.5 g/dl (32.0-36.0) 11/18/17 06:20 RDW 14.7 % (11.6-15.6) 11/18/17 06:20 Plt Count 89 K/MM3 (134-434) L 11/18/17 06:20 MPV 8.4 fl (7.5-11.1) 11/18/17 06:20 CMP Sodium 140 mmol/L (136-145) 11/19/17 07:30 Potassium 3.9 mmol/L (3.5-5.1) 11/19/17 07:30 Chloride 105 mmol/L (98-107) 11/19/17 07:30 Carbon Dioxide 28 mmol/L (21-32) 11/19/17 07:30 Anion Gap 7 (8-16) L 11/19/17 07:30 BUN 9 mg/dL (7-18) 11/19/17 07:30 Creatinine 1.1 mg/dL (0.55-1.02) H 11/19/17 07:30 Creat Clearance w eGFR 48.96 (>60) 11/19/17 07:30 Calcium 8.2 mg/dL (8.5-10.1) L 11/19/17 07:30 Total Bilirubin 4.9 mg/dL (0.2-1.0) H 11/19/17 07:30 AST 1632 U/L (15-37) H 11/19/17 07:30 ALT 817 U/L (12-78) H 11/19/17 07:30 Alkaline Phosphatase 277 U/L (45-117) H 11/19/17 07:30 Total Protein 7.5 g/dl (6.4-8.2) 11/19/17 07:30 Albumin 3.1 g/dl (3.4-5.0) L 11/19/17 07:30 Laboratory Results - last 24 hr 11/18/17 11/18/17 11/18/17 06:20 08:45 08:45 Sodium Potassium Chloride Carbon Dioxide Anion Gap BUN Creatinine Creat Clearance w eGFR POC Glucometer Random Glucose Calcium Ferritin Total Bilirubin Direct Bilirubin AST ALT Alkaline Phosphatase Total Protein Albumin IgG CMV IgM Ab < 30.0 Hepatitis A IgM Ab Negative Hepatitis A Ab Total Negative Hep Bs Antigen Negative Negative Hep Bs Antibody Non reactive Hep B Core Total Ab Negative Hep B Core IgM Ab Negative Hepatitis C Antibody 0.1 <0.1 VZV IgG Antibody VZV DNA (PCR) 11/18/17 11/18/17 11/18/17 08:45 08:45 11:53 Sodium Potassium Chloride Carbon Dioxide Anion Gap BUN Creatinine Creat Clearance w eGFR POC Glucometer 298 Random Glucose Calcium Ferritin 5014.020 H Total Bilirubin Direct Bilirubin AST ALT Alkaline Phosphatase Total Protein Albumin IgG 2140 H CMV IgM Ab Hepatitis A IgM Ab Hepatitis A Ab Total Hep Bs Antigen Hep Bs Antibody Hep B Core Total Ab Hep B Core IgM Ab Hepatitis C Antibody VZV IgG Antibody > 4000 VZV DNA (PCR) Cancelled 11/18/17 11/18/17 11/19/17 16:40 22:05 06:26 Sodium Potassium Chloride Carbon Dioxide Anion Gap BUN Creatinine Creat Clearance w eGFR POC Glucometer 386 228 129 Random Glucose Calcium Ferritin Total Bilirubin Direct Bilirubin AST ALT Alkaline Phosphatase Total Protein Albumin IgG CMV IgM Ab Hepatitis A IgM Ab Hepatitis A Ab Total Hep Bs Antigen Hep Bs Antibody Hep B Core Total Ab Hep B Core IgM Ab Hepatitis C Antibody VZV IgG Antibody VZV DNA (PCR) 11/19/17 07:30 Sodium 140 Potassium 3.9 Chloride 105 Carbon Dioxide 28 Anion Gap 7 L BUN 9 Creatinine 1.1 H Creat Clearance w eGFR 48.96 POC Glucometer Random Glucose 123 H Calcium 8.2 L Ferritin Total Bilirubin 4.9 H Direct Bilirubin 3.5 H AST 1632 H ALT 817 H Alkaline Phosphatase 277 H Total Protein 7.5 Albumin 3.1 L IgG CMV IgM Ab Hepatitis A IgM Ab Hepatitis A Ab Total Hep Bs Antigen Hep Bs Antibody Hep B Core Total Ab Hep B Core IgM Ab Hepatitis C Antibody VZV IgG Antibody VZV DNA (PCR) Problem List - Problems (1) Cholestasis Code(s): K83.1 - OBSTRUCTION OF BILE DUCT (2) Transaminitis Code(s): R74.0 - NONSPEC ELEV OF LEVELS OF TRANSAMNS & LACTIC ACID DEHYDRGNSE (3) Elevated transaminase level Code(s): R74.0 - NONSPEC ELEV OF LEVELS OF TRANSAMNS & LACTIC ACID DEHYDRGNSE Assessment/Plan Avoid non-essential medications Blood tests ordered to evaluate for viral, autoimmune, and genetic etiologies. Await results. MRCP/MRI pending blood work results. Daily CMP, dir. bili, PT/INR
[2017-11-19] MEDS: BUDESONIDE/FORMETEROL FUMARATE 160/4.5 mcg INHALER IH SCH ×2 (09:44→21:32)
[2017-11-19] MEDS: CARBAMIDE PEROXIDE 6.5% OTIC 15 ML BOTTLE AD SCH ×2 (09:44→21:33)
[2017-11-19] MEDS: FLUTICASONE PROP 0.05% 16 GM NASAL SPRAY NS SCH ×2 (09:44→21:32)
--- NOTE | 2017-11-19 10:18 | PN ---
Progress Note, Physician Chief Complaint: no abdominal pain no nausea earache is better getting debrox drops no complaints of back pain - Current Medication List Current Medications: Active Medications Budesonide/Formoterol Fumarate (Symbicort 160/4.5mcg -) 1 puff IH BID [facility] Last Admin: 11/19/17 09:44 Dose: 1 puff Carbamide Perox/Anhydrous Glycerin (Debrox -) 5 drop AD BID [facility] Stop: 11/25/17 21:59 Last Admin: 11/19/17 09:44 Dose: 5 drop Fluticasone Propionate (Flonase -) 1 spray NS BID [facility] Last Admin: 11/19/17 09:44 Dose: 1 spray Sodium Chloride (Normal Saline -) 1,000 mls @ 42 mls/hr IV ASDIR [facility] Last Admin: 11/19/17 08:51 Dose: 42 mls/hr Insulin Aspart (Novolog Vial Sliding Scale -) 1 vial SQ TIDAC [facility] PRN Reason: Protocol Last Admin: 11/19/17 06:28 Dose: Not Given - Objective Vital Signs: Vital Signs Temperature 98.9 F 11/19/17 04:00 Pulse Rate 88 11/19/17 04:00 Respiratory Rate 20 11/19/17 04:00 Blood Pressure 138/75 11/19/17 04:00 O2 Sat by Pulse Oximetry (%) 97 11/18/17 21:00 Constitutional: Yes: Calm Cardiovascular: Yes: Regular Rate and Rhythm, S1, S2 Respiratory: Yes: CTA Bilaterally Gastrointestinal: Yes: Normal Bowel Sounds, Soft Edema: No Neurological: Yes: Alert, Oriented Labs: CBC, BMP 11/18/17 06:20 11/19/17 07:30 Problem List - Problems (1) Abnormal laboratory test Assessment/Plan: appreicate GI note work up in progress avoid all hepatotoxic meds Code(s): R89.9 - UNSP ABNORMAL FINDING IN SPECIMENS FROM OTH ORG/TISS (2) Elevated transaminase level Assessment/Plan: ultrasound noted testing to r/o celiac,hepatitis, has been ordered avoid hepatotoxic agents Code(s): R74.0 - NONSPEC ELEV OF LEVELS OF TRANSAMNS & LACTIC ACID DEHYDRGNSE (3) Ear ache Assessment/Plan: ENT consult noted- right ear - hard wax debrox dropsi n right ear and FU with ENT in one week Code(s): H92.09 - OTALGIA, UNSPECIFIED EAR (4) IDDM (insulin dependent diabetes mellitus) Assessment/Plan: sliding scale hgba1c pending Code(s): E11.9 - TYPE 2 DIABETES MELLITUS WITHOUT COMPLICATIONS; Z79.4 - RESIDENTIAL (CURRENT) USE OF INSULIN
[2017-11-20 04:59] LABS: GLIADIN ANTIBODY IGA 5 units (0-19); GLIADIN ANTIBODY IGG 2 units (0-19); TRANSGLUTAMINASE IGG < 2 U/mL (0-5)
[2017-11-20 06:06] LABS: SERUM IRON SATURATION 45 % (15-55); TOTAL IRON BINDING CAPACITY 237 ug/dL (250-450); UIBC 131 ug/dL (118-369)
[2017-11-20] MEDS: SODIUM CHLORIDE 1,000 ML IV SCH (06:35)
[2017-11-20] MEDS: INSULIN SLIDING SCALE (NOVOLOG) 1 VIAL SQ SCH ×3 (06:36→17:15)
[2017-11-20] MEDS ORDERED: INSULIN (NOVOLOG) ASPART 100 UNITS/ML 10ML VIAL ONE (06:58)
[2017-11-20] MEDS ORDERED: PT OWN MED DRAWER 7, Y5N ONE ×3 (09:05→20:36)
[2017-11-20] MEDS: CARBAMIDE PEROXIDE 6.5% OTIC 15 ML BOTTLE AD SCH ×2 (09:10→21:20)
[2017-11-20] MEDS: BUDESONIDE/FORMETEROL FUMARATE 160/4.5 mcg INHALER IH SCH ×2 (09:10→21:20)
[2017-11-20] MEDS: FLUTICASONE PROP 0.05% 16 GM NASAL SPRAY NS SCH ×2 (09:10→21:20)
[2017-11-20 10:35] LABS: INR 1.27 (0.82-1.09); PROTHROMBIN TIME (PATIENT) 14.4 SEC (9.98-11.88)
[2017-11-20 10:46] LABS: ALBUMIN 2.6 g/dl (3.4-5.0); ALK PHOS 263 U/L (45-117); ANION GAP 6 (8-16); BILIRUBIN,DIRECT 3.5 mg/dL (0.0-0.2); BILIRUBIN,TOTAL 4.5 mg/dL (0.2-1.0); BLOOD UREA NITROGEN 10 mg/dL (7-18); CALCIUM 7.8 mg/dL (8.5-10.1); CHLORIDE 106 mmol/L (98-107); CO2 25 mmol/L (21-32); GLUCOSE,RANDOM 200 mg/dL (74-106); POTASSIUM 3.9 mmol/L (3.5-5.1); SODIUM 137 mmol/L (136-145); TOT PROT 6.6 g/dl (6.4-8.2)
[2017-11-20 10:47] LABS: SGPT/ALT 729 U/L (12-78)
[2017-11-20 10:54] LABS: SGOT/AST 1529 U/L (15-37)
--- NOTE | 2017-11-20 13:32 | PN ---
Progress Note, Physician History of Present Illness: no complaints - Current Medication List Current Medications: Active Medications Budesonide/Formoterol Fumarate (Symbicort 160/4.5mcg -) 1 puff IH BID [facility] Last Admin: 11/20/17 09:10 Dose: 1 puff Carbamide Perox/Anhydrous Glycerin (Debrox -) 5 drop AD BID [facility] Stop: 11/25/17 21:59 Last Admin: 11/20/17 09:10 Dose: 5 drop Fluticasone Propionate (Flonase -) 1 spray NS BID [facility] Last Admin: 11/20/17 09:10 Dose: 1 spray Sodium Chloride (Normal Saline -) 1,000 mls @ 42 mls/hr IV ASDIR [facility] Last Admin: 11/20/17 06:35 Dose: 42 mls/hr Insulin Aspart (Novolog Vial Sliding Scale -) 1 vial SQ TIDAC [facility] PRN Reason: Protocol Last Admin: 11/20/17 13:25 Dose: Not Given - Objective Vital Signs: Vital Signs Temperature 99.9 F H 11/20/17 10:00 Pulse Rate 60 11/20/17 10:00 Respiratory Rate 20 11/20/17 10:00 Blood Pressure 133/70 11/20/17 10:00 O2 Sat by Pulse Oximetry (%) 98 11/19/17 20:17 Cardiovascular: Yes: Regular Rate and Rhythm Respiratory: Yes: Regular, CTA Bilaterally Gastrointestinal: Yes: Normal Bowel Sounds, Soft. No: Tenderness Labs: CBC, BMP 11/18/17 06:20 11/20/17 10:05 INR, PTT INR 1.27 (0.82-1.09) H 11/20/17 10:05 Assessment/Plan - Problems (1) Abnormal laboratory test Assessment/Plan: appreicate GI note work up in progress avoid all hepatotoxic meds Code(s): R89.9 - UNSP ABNORMAL FINDING IN SPECIMENS FROM OTH ORG/TISS (2) Elevated transaminase level Assessment/Plan: ultrasound noted testing to r/o celiac,hepatitis, has been ordered avoid hepatotoxic agents Code(s): R74.0 - NONSPEC ELEV OF LEVELS OF TRANSAMNS & LACTIC ACID DEHYDRGNSE (3) Ear ache Assessment/Plan: ENT consult noted- right ear - hard wax debrox dropsi n right ear and FU with ENT in one week Code(s): H92.09 - OTALGIA, UNSPECIFIED EAR (4) IDDM (insulin dependent diabetes mellitus) Assessment/Plan: sliding scale hgba1c 11 endo Code(s): E11.9 - TYPE 2 DIABETES MELLITUS WITHOUT COMPLICATIONS; Z79.4 - LENS FINISHER (CURRENT) USE OF INSULIN
[2017-11-20 14:09] LABS: VARICELLA-ZOSTER IGM < 0.91 index (0.00-0.90)
--- NOTE | 2017-11-20 16:13 | PN ---
GI Progress Note Subjective: GI Dr. Oleary covering for Dr. Roman No acute events Describes having increasing fatigue and diffuse arthralgias over the last few weeks. Denies tonie Was taking 1 650mg Arthritis medication pill once per day or every other day of late Tells me that she may have been told of possible rheumatoid arthritis in the past and her daughter has a thyroid disorder - Objective Vital Signs: Vital Signs Temperature 98.9 F 11/20/17 14:03 Pulse Rate 67 11/20/17 14:03 Respiratory Rate 18 11/20/17 14:03 Blood Pressure 137/69 11/20/17 14:03 O2 Sat by Pulse Oximetry (%) 98 11/20/17 09:00 Constitutional: Calm Eyes: Yes: Sclera Icterus Cardiovascular: Yes: Regular Rate and Rhythm. No: Murmur Respiratory: Yes: CTA Bilaterally Gastrointestinal Inspection: No: Distention ...Auscultate: Yes: Normoactive Bowel Sounds ...Palpate: No: Hepatomegaly, Splenomegaly, Tenderness ...Percussion: No: Tympanitic Edema: No (No LE edema) Neurological: Yes: Alert, Oriented. 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 H Liver/Kid Microsomes Ab 1.6 Laboratory Tests 11/18/17 11/19/17 08:45 07:30 Iron Saturation 45 Ferritin 5014.020 H Laboratory Tests 11/17/17 11/18/17 11/19/17 18:42 06:20 07:30 Total Bilirubin 4.2 H 4.4 H 4.9 H Direct Bilirubin 3.5 H AST 1362 H 1429 H 1632 H ALT 806 H 761 H 817 H Alkaline Phosphatase 317 H 280 H 277 H Total Protein 7.5 Albumin 3.3 L 3.0 L 3.1 L 11/20/17 10:05 Total Bilirubin 4.5 H Direct Bilirubin 3.5 H AST 1529 H ALT 729 H Alkaline Phosphatase 263 H Total Protein 6.6 Albumin 2.6 L - ....Imaging Ultrasound: Report Reviewed (No ductal dilation or mass lesion) Problem List - Problems (1) Abnormal laboratory test Assessment/Plan: Imp: Hepatocellular liver dysfunction w/ component of cholestasis: LFTs with minimal improvement from yesterday w/ positive autoimmune serologies ( MECCA / ASMA), possible prodrome and family/possible personal h/o autoimmune disease Infectious serologic w/u has been negative to date Autoimmune hepatitis will need to be considered higher in differential. Plan: Monitor LFTS and coags daily Monitor mental status Avoid hepatotoxic agents MRI/MRCP ordered to exclude more subtle biliary tract pathology EBV PCR ordered GGT ordered Quantiferon Gold ordered in preparation for possible immunosuppression for treatment of AIH.Will likely need Liver bx as well if no continued improvement. Discussed w/ Ms. Smith. Code(s): R89.9 - UNSP ABNORMAL FINDING IN SPECIMENS FROM OT ORG/TISS
[2017-11-20] MEDS ORDERED: TUBERCULIN PPD 5 TU/0.1ML SYRINGE (IN PATIENT USE ONLY) ID ONE (17:00)
[2017-11-21] MEDS: SODIUM CHLORIDE 1,000 ML IV SCH ×2 (06:10→06:12)
[2017-11-21] MEDS: INSULIN SLIDING SCALE (NOVOLOG) 1 VIAL SQ SCH ×3 (06:12→17:37)
[2017-11-21 07:04] LABS: ALBUMIN 2.6 g/dl (3.4-5.0)
[2017-11-21 07:11] LABS: BILIRUBIN,DIRECT 3.6 mg/dL (0.0-0.2); BILIRUBIN,TOTAL 4.8 mg/dL (0.2-1.0); TOT PROT 6.8 g/dl (6.4-8.2)
[2017-11-21] MEDS: BUDESONIDE/FORMETEROL FUMARATE 160/4.5 mcg INHALER IH SCH ×2 (09:52→21:36)
[2017-11-21] MEDS: FLUTICASONE PROP 0.05% 16 GM NASAL SPRAY NS SCH ×2 (09:52→21:36)
[2017-11-21] MEDS: CARBAMIDE PEROXIDE 6.5% OTIC 15 ML BOTTLE AD SCH ×2 (09:52→21:36)
[2017-11-21 10:27] LABS: INR 1.27 (0.82-1.09); PROTHROMBIN TIME (PATIENT) 14.4 SEC (9.98-11.88)
[2017-11-21 10:41] LABS: ALBUMIN 2.6 g/dl (3.4-5.0); ANION GAP 6 (8-16); BILIRUBIN,DIRECT 3.8 mg/dL (0.0-0.2); BILIRUBIN,TOTAL 4.9 mg/dL (0.2-1.0); BLOOD UREA NITROGEN 10 mg/dL (7-18); CALCIUM 8.1 mg/dL (8.5-10.1); CHLORIDE 107 mmol/L (98-107); CO2 25 mmol/L (21-32); GLUCOSE,RANDOM 206 mg/dL (74-106); POTASSIUM 3.6 mmol/L (3.5-5.1); SODIUM 138 mmol/L (136-145); TOT PROT 6.9 g/dl (6.4-8.2)
[2017-11-21 10:44] LABS: SGPT/ALT 760 U/L (12-78)
[2017-11-21 10:47] LABS: ALK PHOS 266 U/L (45-117)
[2017-11-21 10:49] LABS: SGOT/AST 1691 U/L (15-37)
--- NOTE | 2017-11-21 14:22 | PN ---
Progress Note, Physician Chief Complaint: abdominal pain History of Present Illness: NAD seen by GI MRI,MRCP pending - Current Medication List Current Medications: Active Medications Budesonide/Formoterol Fumarate (Symbicort 160/4.5mcg -) 1 puff IH BID [facility] Last Admin: 11/21/17 09:52 Dose: 1 puff Carbamide Perox/Anhydrous Glycerin (Debrox -) 5 drop AD BID [facility] Stop: 11/25/17 21:59 Last Admin: 11/21/17 09:52 Dose: 5 drop Fluticasone Propionate (Flonase -) 1 spray NS BID [facility] Last Admin: 11/21/17 09:52 Dose: 1 spray Sodium Chloride (Normal Saline -) 1,000 mls @ 42 mls/hr IV ASDIR [facility] Last Admin: 11/21/17 06:12 Dose: 42 mls/hr Insulin Aspart (Novolog Vial Sliding Scale -) 1 vial SQ TIDAC [facility] PRN Reason: Protocol Last Admin: 11/21/17 12:35 Dose: 4 units - Objective Vital Signs: Vital Signs Temperature 98.2 F 11/21/17 09:02 Pulse Rate 84 11/21/17 09:02 Respiratory Rate 20 11/21/17 09:02 Blood Pressure 136/65 11/21/17 09:02 O2 Sat by Pulse Oximetry (%) 96 11/21/17 09:00 Constitutional: Yes: Well Nourished, No Distress, Calm Cardiovascular: Yes: Regular Rate and Rhythm Respiratory: Yes: Regular Gastrointestinal: Yes: Normal Bowel Sounds, Soft Musculoskeletal: Yes: WNL Extremities: Yes: WNL Edema: No Peripheral Pulses WNL: Yes Neurological: Yes: Alert, Oriented Psychiatric: Yes: Alert, Oriented Labs: CBC, BMP 11/18/17 06:20 11/21/17 09:45 INR, PTT INR 1.27 (0.82-1.09) H 11/21/17 09:45 Problem List - Problems (1) Elevated transaminase level Assessment/Plan: -GI consult -MRI/MRCP Pending -monitor labs Code(s): R74.0 - NONSPEC ELEV OF LEVELS OF TRANSAMNS & LACTIC ACID DEHYDRGNSE (2) HLD (hyperlipidemia) Code(s): E78.5 - HYPERLIPIDEMIA, UNSPECIFIED (3) HTN (hypertension) Assessment/Plan: -improved Code(s): I10 - ESSENTIAL (PRIMARY) HYPERTENSION (4) IDDM (insulin dependent diabetes mellitus) Assessment/Plan: -insulin -endocrinology consult -BGM -diabetic diet -RD consult Code(s): E11.9 - TYPE 2 DIABETES MELLITUS WITHOUT COMPLICATIONS; Z79.4 - RN COMMUNITY (CURRENT) USE OF INSULIN Assessment/Plan See problem list
[2017-11-21 15:09] LABS: BASO % 0.6 % (0-2.0); EOS % 2.8 % (0-4.5); HEMOGLOBIN 12.7 GM/dL (10.7-15.3); LYMPH % 36.8 % (8-40); MCH 30.6 pg (25.7-33.7); MCHC 33.4 g/dl (32.0-36.0); MEAN CELL VOLUME 91.6 fl (80-96); MEAN PLT VOLUME 9.3 fl (7.5-11.1); MONO % 14.6 % (3.8-10.2); NEUT % 45.2 % (42.8-82.8); PLATELET COUNT 102 K/MM3 (134-434); RBC 4.15 M/mm3 (3.60-5.2); RDW 15.6 % (11.6-15.6); WHITE BLOOD COUNT 6.3 K/mm3 (4.0-10.0)
--- NOTE | 2017-11-21 15:37 | PN ---
GI Progress Note Subjective: States being somnolent, otherwise feels well No abdominal pain - Objective Vital Signs: Vital Signs Temperature 98.3 F 11/21/17 14:28 Pulse Rate 60 11/21/17 14:28 Respiratory Rate 18 11/21/17 14:28 Blood Pressure 137/61 11/21/17 14:28 O2 Sat by Pulse Oximetry (%) 96 11/21/17 09:00 Constitutional: Calm Eyes: No: Sclera Icterus Cardiovascular: Yes: Regular Rate and Rhythm Respiratory: Yes: CTA Bilaterally Gastrointestinal Inspection: No: Distention ...Auscultate: Yes: Normoactive Bowel Sounds ...Palpate: No: Hepatomegaly, Splenomegaly Neurological: Yes: Alert, Oriented. No: Asterix[facility] Labs: CBC, BMP 11/21/17 14:30 11/21/17 09:45 INR, PTT INR 1.27 (0.82-1.09) H 11/21/17 09:45 Problem List - Problems (1) Abnormal laboratory test Assessment/Plan: No real improvement in LFTs No ductal dilatation noted on recent US MRI/MRCP still not done as of yet Will start Prednisone 60mg once daily today for presumed AIH and will likely need liver biopsy coags allowing Quantiferon drawn and pending Monitor LFTs Dr. Roman resumes coverage 11/22 Code(s): R89.9 - UNSP ABNORMAL FINDING IN SPECIMENS FROM OTH ORG/TISS
[2017-11-21] MEDS: PANTOPRAZOLE 20 MG TABLET (FP) PO SCH (17:36)
[2017-11-21] MEDS: predniSONE 20 MG TABLET (UD) PO SCH (17:36)
--- NOTE | 2017-11-21 20:13 | CONSULT ---
Consult Consult Specialty:: endocrine Referred by:: dr.annabi almaraz Reason for Consultation:: diabetes mellitus / poor appetite - History of Present Illness Chief Complaint: weak and blood work abnormal History of Present Illness: 72 y/o woman with a past medical history of HTN, HLD, COPD, IDDM. Who presents to the ED sent in by her PMD for abnormal lab values- Transaminits. Patient reports having dark "orange-brown urine" for 6 weeks. Patient also reports having back pain which is progressively worse. found to have high liver enzymes on blood work done by pmd,has not been feeling well and taking insulin dose as needed with pen device.she denies alcohol use,fever,chills nausea or vomiting. - History Source History Provided By: Patient - Past Medical History Cardio/Vascular: Yes: HTN, Hyperlipdemia Pulmonary: Yes: COPD Endocrine: Yes: Diabetes Mellitus - Past Surgical History Past Surgical History: Yes: Hernia Repair (Umbilical) - Alcohol/Substance Use Hx Alcohol Use: No History of Substance Use: reports: None - Smoking History Smoking history: Former smoker Have you smoked in the past 12 months: No If you are a former smoker, when did you quit?: 5 years ago - Social History ADL: Independent (ambulates with walker) Occupation: retired History of Recent Travel: No Home Medications - Allergies Allergies/Adverse Reactions: Allergies Allergy/AdvReac Type Severity Reaction Status Date / Time No Known Allergies Allergy Verified 11/17/17 18:27 Family Disease History - Family Disease History Family Disease History: Diabetes: Grandparent (Breast), Heart Disease: Grandparent, CA: Grandparent, Mother (Breast), Other: Daughter (L- Breast Nodules , 2nd Daughter- Hypothyroid) Other Family History: 2nd Daughter- Hypothyroid Review of Systems - Review of Systems Constitutional: reports: Lethargy, Weakness Eyes: reports: No Symptoms HENT: reports: Nasal Congestion, Ringing in Ears Neck: reports: No Symptoms Cardiovascular: reports: Shortness of Breath Respiratory: reports: Exercise Intolerance, SOB on Exertion Gastrointestinal: reports: Constipation Genitourinary: reports: No Symptoms Breasts: reports: No Symptoms Reported Musculoskeletal: reports: Muscle Cramps Integumentary: reports: No Symptoms Neurological: reports: No Symptoms Endocrine: reports: No Symptoms Physical Exam Vital Signs: Vital Signs Temperature 98.2 F 11/21/17 18:30 Pulse Rate 82 02/11/18 18:30 Respiratory Rate 20 11/21/17 18:30 Blood Pressure 134/60 11/21/17 18:30 O2 Sat by Pulse Oximetry (%) 96 11/21/17 09:00 Constitutional: Yes: Anxious Eyes: Yes: EOM Intact HENT: Yes: Normocephalic Neck: Yes: Trachea Midline Cardiovascular: Yes: Regular Rate and Rhythm Respiratory: Yes: CTA Bilaterally Gastrointestinal: Yes: Normal Bowel Sounds ...Rectal Exam: Yes: Deferred Renal/: Yes: WNL Musculoskeletal: Yes: Back Pain, Muscle Weakness Extremities: Yes: WNL Edema: No Integumentary: Yes: WNL Neurological: Yes: Alert, Oriented Labs: CBC, BMP 11/21/17 14:30 11/21/17 09:45 Problem List - Problems (1) Diabetes Code(s): E11.9 - TYPE 2 DIABETES MELLITUS WITHOUT COMPLICATIONS Qualifiers: Diabetes mellitus type: type 2 (2) Abnormal laboratory test Code(s): R89.9 - UNSP ABNORMAL FINDING IN SPECIMENS FROM OTH ORG/TISS (3) COPD (chronic obstructive pulmonary disease) Code(s): J44.9 - CHRONIC OBSTRUCTIVE PULMONARY DISEASE, UNSPECIFIED (4) Cholestasis Code(s): K83.1 - OBSTRUCTION OF BILE DUCT (5) DVT prophylaxis Code(s): [id number] - (6) Ear ache Code(s): H92.09 - OTALGIA, UNSPECIFIED EAR (7) Elevated transaminase level Code(s): R74.0 - NONSPEC ELEV OF LEVELS OF TRANSAMNS & LACTIC ACID DEHYDRGNSE (8) HLD (hyperlipidemia) Code(s): E78.5 - HYPERLIPIDEMIA, UNSPECIFIED Assessment/Plan Current Active Problems Abnormal laboratory test (Acute) COPD (chronic obstructive pulmonary disease) (Acute) Cholestasis (Acute) Cholestasis (Acute) DVT prophylaxis (Acute) Ear ache (Acute) Elevated transaminase level (Acute) HLD (hyperlipidemia) (Acute) HTN (hypertension) (Acute) IDDM (insulin dependent diabetes mellitus) (Acute) Otalgia of right ear (Acute) Transaminitis (Acute) Abnormal Lab Results 11/21/17 11/21/17 11/21/17 06:25 06:25 09:45 Plt Count Monocytes % PT with INR 14.40 H INR 1.27 H Anion Gap Random Glucose Calcium Total Bilirubin 4.8 H Direct Bilirubin 3.6 H GGT 702 H AST 1647 H ALT 770 H Alkaline Phosphatase 264 H Albumin 2.6 L 11/21/17 11/21/17 09:45 14:30 Plt Count 102 L Monocytes % 14.6 H PT with INR INR Anion Gap 6 L Random Glucose 206 H Calcium 8.1 L Total Bilirubin 4.9 H Direct Bilirubin 3.8 H GGT AST 1691 H ALT 760 H Alkaline Phosphatase 266 H Albumin 2.6 L Laboratory Results - last 24 hr 11/20/17 11/21/17 11/21/17 21:19 06:11 06:25 WBC RBC Hgb Hct MCV MCH MCHC RDW Plt Count MPV Neutrophils % Lymphocytes % Monocytes % Eosinophils % Basophils % PT with INR INR Sodium Potassium Chloride Carbon Dioxide Anion Gap BUN Creatinine Creat Clearance w eGFR POC Glucometer 176 133 Random Glucose Calcium Total Bilirubin 4.8 H Direct Bilirubin 3.6 H GGT AST 1647 H ALT 770 H Alkaline Phosphatase 264 H Total Protein 6.8 Albumin 2.6 L 11/21/17 11/21/17 11/21/17 06:25 09:45 09:45 WBC RBC Hgb Hct MCV MCH MCHC RDW Plt Count MPV Neutrophils % Lymphocytes % Monocytes % Eosinophils % Basophils % PT with INR 14.40 H INR 1.27 H Sodium 138 Potassium 3.6 Chloride 107 Carbon Dioxide 25 Anion Gap 6 L BUN 10 Creatinine 1.0 Creat Clearance w eGFR 54.66 POC Glucometer Random Glucose 206 H Calcium 8.1 L Total Bilirubin 4.9 H Direct Bilirubin 3.8 H GGT 702 H AST 1691 H ALT 760 H Alkaline Phosphatase 266 H Total Protein 6.9 Albumin 2.6 L 11/21/17 11/21/17 11/21/17 11:44 14:30 17:32 WBC 6.3 RBC 4.15 Hgb 12.7 Hct 38.0 MCV 91.6 MCH 30.6 MCHC 33.4 RDW 15.6 Plt Count 102 L MPV 9.3 D Neutrophils % 45.2 Lymphocytes % 36.8 Monocytes % 14.6 H Eosinophils % 2.8 Basophils % 0.6 PT with INR INR Sodium Potassium Chloride Carbon Dioxide Anion Gap BUN Creatinine Creat Clearance w eGFR POC Glucometer 261 243 Random Glucose Calcium Total Bilirubin Direct Bilirubin GGT AST ALT Alkaline Phosphatase Total Protein Albumin plan: bgm q achs novolog insulin dose Laboratory Tests 11/19/17 11/20/17 11/20/17 21:30 06:34 10:05 POC Glucometer 220 153 Random Glucose 200 H 11/20/17 11/20/17 11/20/17 12:01 17:10 21:19 POC Glucometer 202 216 176 Random Glucose levemir 25 units bid as dose may increase while on steroids ck hba1c ck amylase lipase
[2017-11-21] MEDS ORDERED: INSULIN DETEMIR 100 UNITS/ML MDV SQ ONE (20:43)
[2017-11-21 21:30] LABS: AMYLASE 32 U/L (25-115); LIPASE 440 U/L (73-393)
[2017-11-21] MEDS: INSULIN DETEMIR 100 UNITS/ML MDV SQ SCH (21:35)
[2017-11-22] MEDS: SODIUM CHLORIDE 1,000 ML IV SCH ×3 (05:59→21:48)
[2017-11-22] MEDS: INSULIN DETEMIR 100 UNITS/ML MDV SQ SCH ×2 (06:02→21:47)
[2017-11-22] MEDS: INSULIN SLIDING SCALE (NOVOLOG) 1 VIAL SQ SCH ×3 (06:02→17:19)
[2017-11-22 07:31] LABS: BASO % 0.3 % (0-2.0); EOS % 0.1 % (0-4.5); HEMATOCRIT 37.3 % (32.4-45.2); HEMOGLOBIN 12.1 GM/dL (10.7-15.3); MCH 29.9 pg (25.7-33.7); MCHC 32.4 g/dl (32.0-36.0); MEAN CELL VOLUME 92.5 fl (80-96); MEAN PLT VOLUME 8.8 fl (7.5-11.1); MONO % 6.8 % (3.8-10.2); NEUT % 62.8 % (42.8-82.8); PLATELET COUNT 108 K/MM3 (134-434); RBC 4.03 M/mm3 (3.60-5.2); RDW 15.4 % (11.6-15.6); WHITE BLOOD COUNT 5.9 K/mm3 (4.0-10.0)
[2017-11-22 07:48] LABS: ALBUMIN 2.7 g/dl (3.4-5.0); ANION GAP 8 (8-16); BILIRUBIN,DIRECT 3.9 mg/dL (0.0-0.2); BILIRUBIN,TOTAL 4.9 mg/dL (0.2-1.0); BLOOD UREA NITROGEN 15 mg/dL (7-18); CALCIUM 7.9 mg/dL (8.5-10.1); CHLORIDE 102 mmol/L (98-107); CO2 23 mmol/L (21-32); GLUCOSE,RANDOM 287 mg/dL (74-106); SODIUM 133 mmol/L (136-145); TOT PROT 7.3 g/dl (6.4-8.2)
[2017-11-22 07:55] LABS: ALK PHOS 286 U/L (45-117)
[2017-11-22 08:19] LABS: SGOT/AST 1191 U/L (15-37); SGPT/ALT 722 U/L (12-78)
[2017-11-22] MEDS ORDERED: PT OWN MED DRAWER 7, Y5N ONE ×2 (09:03→10:38)
[2017-11-22] MEDS: CARBAMIDE PEROXIDE 6.5% OTIC 15 ML BOTTLE AD SCH ×2 (09:34→21:47)
[2017-11-22] MEDS: BUDESONIDE/FORMETEROL FUMARATE 160/4.5 mcg INHALER IH SCH ×2 (09:34→21:47)
[2017-11-22] MEDS: PANTOPRAZOLE 20 MG TABLET (FP) PO SCH (09:34)
[2017-11-22] MEDS: predniSONE 20 MG TABLET (UD) PO SCH (09:34)
[2017-11-22] MEDS: FLUTICASONE PROP 0.05% 16 GM NASAL SPRAY NS SCH ×2 (09:34→21:47)
[2017-11-22 10:26] LABS: CHLORIDE 102 mmol/L (98-107); SODIUM 130 mmol/L (136-145)
--- NOTE | 2017-11-22 10:44 | PN ---
Progress Note, Physician History of Present Illness: No events Comfortable. Clinically the same - Current Medication List Current Medications: Active Medications Budesonide/Formoterol Fumarate (Symbicort 160/4.5mcg -) 1 puff IH BID [facility] Last Admin: 11/22/17 09:34 Dose: 1 puff Carbamide Perox/Anhydrous Glycerin (Debrox -) 5 drop AD BID [facility] Stop: 11/25/17 21:59 Last Admin: 11/22/17 09:34 Dose: 5 drop Fluticasone Propionate (Flonase -) 1 spray NS BID [facility] Last Admin: 11/22/17 09:34 Dose: 1 spray Sodium Chloride (Normal Saline -) 1,000 mls @ 42 mls/hr IV ASDIR [facility] Last Admin: 11/22/17 06:05 Dose: 42 mls/hr Insulin Aspart (Novolog Vial Sliding Scale -) 1 vial SQ TIDAC [facility] PRN Reason: Protocol Last Admin: 11/22/17 06:02 Dose: 4 units Insulin Detemir (Levemir Vial) 20 units SQ BID@0700,2200 [facility] Last Admin: 11/22/17 06:02 Dose: 20 units Pantoprazole Sodium (Protonix -) 20 mg PO DAILY [facility] Last Admin: 11/22/17 09:34 Dose: 20 mg Prednisone (Deltasone -) 60 mg PO DAILY [facility] Last Admin: 11/22/17 09:34 Dose: 60 mg - Objective Vital Signs: Vital Signs Temperature 97.5 F L 11/22/17 09:37 Pulse Rate 84 11/22/17 09:37 Respiratory Rate 20 11/22/17 09:37 Blood Pressure 122/80 11/22/17 09:37 O2 Sat by Pulse Oximetry (%) 96 11/21/17 21:00 Constitutional: Yes: Well Nourished, No Distress, Calm Eyes: Yes: Conjunctiva Clear HENT: Yes: Atraumatic Neck: Yes: Supple Cardiovascular: Yes: Regular Rate and Rhythm Respiratory: Yes: Regular Gastrointestinal: Yes: Normal Bowel Sounds, Soft Neurological: Yes: Alert, Oriented. No: Asterixis, Lethargy, Tremors Labs: CBC, BMP 11/22/17 06:20 11/22/17 09:50 INR, PTT INR 1.27 (0.82-1.09) H 11/21/17 09:45 CBCD WBC 5.9 K/mm3 (4.0-10.0) 11/22/17 06:20 RBC 4.03 M/mm3 (3.60-5.2) 11/22/17 06:20 Hgb 12.1 GM/dL (10.7-15.3) 11/22/17 06:20 Hct 37.3 % (32.4-45.2) 11/22/17 06:20 MCV 92.5 fl (80-96) 11/22/17 06:20 MCHC 32.4 g/dl (32.0-36.0) 11/22/17 06:20 RDW 15.4 % (11.6-15.6) 11/22/17 06:20 Plt Count 108 K/MM3 (134-434) L 11/22/17 06:20 MPV 8.8 fl (7.5-11.1) 11/22/17 06:20 CMP Sodium 130 mmol/L (136-145) L 11/22/17 09:50 Potassium 4.0 mmol/L (3.5-5.1) 11/22/17 09:50 Chloride 102 mmol/L (98-107) 11/22/17 09:50 Carbon Dioxide 23 mmol/L (21-32) 11/22/17 06:20 Anion Gap 8 (8-16) 11/22/17 06:20 BUN 15 mg/dL (7-18) 11/22/17 06:20 Creatinine 1.0 mg/dL (0.55-1.02) 11/22/17 06:20 Creat Clearance w eGFR 54.66 (>60) 11/21/17 09:45 Calcium 7.9 mg/dL (8.5-10.1) L 11/22/17 06:20 Total Bilirubin 4.9 mg/dL (0.2-1.0) H 11/22/17 06:20 AST 1191 U/L (15-37) H 11/22/17 06:20 ALT 722 U/L (12-78) H 11/22/17 06:20 Alkaline Phosphatase 286 U/L (45-117) H 11/22/17 06:20 Total Protein 7.3 g/dl (6.4-8.2) 11/22/17 06:20 Albumin 2.7 g/dl (3.4-5.0) L 11/22/17 06:20 Abnormal Lab Results 11/21/17 11/21/17 11/21/17 09:45 09:45 14:30 Plt Count 102 L Monocytes % 14.6 H PT with INR 14.40 H INR 1.27 H Sodium Anion Gap 6 L Random Glucose 206 H Calcium 8.1 L Total Bilirubin 4.9 H Direct Bilirubin 3.8 H AST 1691 H ALT 760 H Alkaline Phosphatase 266 H Albumin 2.6 L Lipase 11/21/17 11/22/17 11/22/17 20:55 06:20 06:20 Plt Count 108 L Monocytes % PT with INR INR Sodium 133 L Anion Gap Random Glucose 287 H Calcium 7.9 L Total Bilirubin 4.9 H Direct Bilirubin 3.9 H AST 1191 H ALT 722 H Alkaline Phosphatase 286 H Albumin 2.7 L Lipase 440 H 11/22/17 09:50 Plt Count Monocytes % PT with INR INR Sodium 130 L Anion Gap Random Glucose Calcium Total Bilirubin Direct Bilirubin AST ALT Alkaline Phosphatase Albumin Lipase Problem List - Problems (1) Cholestasis Code(s): K83.1 - OBSTRUCTION OF BILE DUCT (2) Transaminitis Code(s): R74.0 - NONSPEC ELEV OF LEVELS OF TRANSAMNS & LACTIC ACID DEHYDRGNSE (3) Elevated transaminase level Code(s): R74.0 - NONSPEC ELEV OF LEVELS OF TRANSAMNS & LACTIC ACID DEHYDRGNSE (4) Autoimmune hepatitis Code(s): K75.4 - AUTOIMMUNE HEPATITIS (5) Autoimmune hepatitis treated with steroids Code(s): K75.4 - AUTOIMMUNE HEPATITIS Assessment/Plan Avoid non-essential medications Labs better this am, day 2 of steroids. MRI, quantiferon pending Daily CMP, dir. bili, PT/INR
[2017-11-22 10:47] LABS: INR 1.29 (0.82-1.09); PROTHROMBIN TIME (PATIENT) 14.6 SEC (9.98-11.88)
[2017-11-22 10:48] LABS: ALK PHOS 307 U/L (45-117); ANION GAP 8 (8-16); BILIRUBIN,DIRECT 3.7 mg/dL (0.0-0.2); BILIRUBIN,TOTAL 4.8 mg/dL (0.2-1.0); BLOOD UREA NITROGEN 15 mg/dL (7-18); CO2 20 mmol/L (21-32); GLUCOSE,RANDOM 300 mg/dL (74-106); TOT PROT 7.9 g/dl (6.4-8.2)
[2017-11-22 10:55] LABS: SGOT/AST 1148 U/L (15-37); SGPT/ALT 726 U/L (12-78)
[2017-11-22] MEDS ORDERED: INSULIN (NOVOLOG) ASPART 100 UNITS/ML 10ML VIAL ONE (11:42)
--- NOTE | 2017-11-22 13:33 | PN ---
Progress Note, Physician Chief Complaint: pateint complaining of the skin itchiness around the nose MRI done - Current Medication List Current Medications: Active Medications Budesonide/Formoterol Fumarate (Symbicort 160/4.5mcg -) 1 puff IH BID [facility] Last Admin: 11/22/17 09:34 Dose: 1 puff Carbamide Perox/Anhydrous Glycerin (Debrox -) 5 drop AD BID [facility] Stop: 11/25/17 21:59 Last Admin: 11/22/17 09:34 Dose: 5 drop Fluticasone Propionate (Flonase -) 1 spray NS BID [facility] Last Admin: 11/22/17 09:34 Dose: 1 spray Sodium Chloride (Normal Saline -) 1,000 mls @ 42 mls/hr IV ASDIR [facility] Last Admin: 11/22/17 06:05 Dose: 42 mls/hr Insulin Aspart (Novolog Vial Sliding Scale -) 1 vial SQ TIDAC [facility] PRN Reason: Protocol Last Admin: 11/22/17 11:51 Dose: 8 units Insulin Detemir (Levemir Vial) 20 units SQ BID@0700,2200 [facility] Last Admin: 11/22/17 06:02 Dose: 20 units Multi-Ingredient Lotion (Eucerin (Small Jar) -) 1 applic TP BID [facility] Pantoprazole Sodium (Protonix -) 20 mg PO DAILY [facility] Last Admin: 11/22/17 09:34 Dose: 20 mg Prednisone (Deltasone -) 60 mg PO DAILY [facility] Last Admin: 11/22/17 09:34 Dose: 60 mg - Objective Vital Signs: Vital Signs Temperature 97.5 F L 11/22/17 09:37 Pulse Rate 84 11/22/17 09:37 Respiratory Rate 20 11/22/17 09:37 Blood Pressure 122/80 11/22/17 09:37 O2 Sat by Pulse Oximetry (%) 96 11/21/17 21:00 Constitutional: Yes: Calm Cardiovascular: Yes: Regular Rate and Rhythm, S1, S2 Respiratory: Yes: CTA Bilaterally Gastrointestinal: Yes: Normal Bowel Sounds, Soft Edema: No Neurological: Yes: Alert, Oriented Labs: CBC, BMP 11/22/17 06:20 11/22/17 09:50 INR, PTT INR 1.29 (0.82-1.09) H 11/22/17 09:50 Problem List - Problems (1) Abnormal laboratory test Assessment/Plan: appreicate GI note work up in progress avoid all hepatotoxic meds MRI done shows cirhosis slight decrease in LFT Code(s): R89.9 - UNSP ABNORMAL FINDING IN SPECIMENS FROM OTH ORG/TISS (2) Elevated transaminase level Assessment/Plan: on prednisone MRI done trend LFT Code(s): R74.0 - NONSPEC ELEV OF LEVELS OF TRANSAMNS & LACTIC ACID DEHYDRGNSE (3) Ear ache Assessment/Plan: ENT consult noted- right ear - hard wax debrox dropsi n right ear and FU with ENT in one week Code(s): H92.09 - OTALGIA, UNSPECIFIED EAR (4) IDDM (insulin dependent diabetes mellitus) Assessment/Plan: sliding scale [id number] pending Code(s): E11.9 - TYPE 2 DIABETES MELLITUS WITHOUT COMPLICATIONS; Z79.4 - [employer]IATE (CURRENT) USE OF INSULIN
[2017-11-22] MEDS: MINERAL OIL/PETROLAT/WATER TOPICAL CREAM 113 GM JAR TP SCH ×2 (17:22→21:55)
[2017-11-23] MEDS: SODIUM CHLORIDE 1,000 ML IV SCH (06:13)
[2017-11-23] MEDS: INSULIN SLIDING SCALE (NOVOLOG) 1 VIAL SQ SCH ×3 (06:17→17:43)
[2017-11-23] MEDS: INSULIN DETEMIR 100 UNITS/ML MDV SQ SCH ×2 (06:18→21:51)
[2017-11-23] MEDS ORDERED: INSULIN (NOVOLOG) ASPART 100 UNITS/ML 10ML VIAL ONE ×2 (06:23→21:09)
[2017-11-23] MEDS: predniSONE 20 MG TABLET (UD) PO SCH (09:45)
[2017-11-23] MEDS: CARBAMIDE PEROXIDE 6.5% OTIC 15 ML BOTTLE AD SCH ×2 (09:45→21:51)
[2017-11-23] MEDS: FLUTICASONE PROP 0.05% 16 GM NASAL SPRAY NS SCH ×2 (09:45→21:46)
[2017-11-23] MEDS: BUDESONIDE/FORMETEROL FUMARATE 160/4.5 mcg INHALER IH SCH ×2 (09:45→21:47)
[2017-11-23] MEDS: PANTOPRAZOLE 20 MG TABLET (FP) PO SCH (09:45)
[2017-11-23] MEDS: MINERAL OIL/PETROLAT/WATER TOPICAL CREAM 113 GM JAR TP SCH ×2 (09:46→21:46)
--- NOTE | 2017-11-23 10:35 | PN ---
Progress Note, Physician Chief Complaint: awake alert no distress was suppose to get cataract surgery on 12/06 she juan get it rescheduled - Current Medication List Current Medications: Active Medications Budesonide/Formoterol Fumarate (Symbicort 160/4.5mcg -) 1 puff IH BID [facility] Last Admin: 11/23/17 09:45 Dose: 1 puff Carbamide Perox/Anhydrous Glycerin (Debrox -) 5 drop AD BID [facility] Stop: 11/25/17 21:59 Last Admin: 11/23/17 09:45 Dose: 5 drop Fluticasone Propionate (Flonase -) 1 spray NS BID [facility] Last Admin: 11/23/17 09:45 Dose: 1 spray Sodium Chloride (Normal Saline -) 1,000 mls @ 42 mls/hr IV ASDIR [facility] Last Admin: 11/23/17 06:13 Dose: 42 mls/hr Insulin Aspart (Novolog Vial Sliding Scale -) 1 vial SQ TIDAC [facility] PRN Reason: Protocol Last Admin: 11/23/17 06:17 Dose: 8 units Insulin Detemir (Levemir Vial) 20 units SQ BID@0700,2200 [facility] Last Admin: 11/23/17 06:18 Dose: 20 units Multi-Ingredient Lotion (Eucerin (Small Jar) -) 1 applic TP BID [facility] Last Admin: 11/23/17 09:46 Dose: 1 applic Pantoprazole Sodium (Protonix -) 20 mg PO DAILY [facility] Last Admin: 11/23/17 09:45 Dose: 20 mg Prednisone (Deltasone -) 60 mg PO DAILY [facility] Last Admin: 11/23/17 09:45 Dose: 60 mg - Objective Vital Signs: Vital Signs Temperature 98.1 F 11/23/17 06:00 Pulse Rate 56 L 11/23/17 06:00 Respiratory Rate 20 11/23/17 06:00 Blood Pressure 114/53 11/23/17 06:00 O2 Sat by Pulse Oximetry (%) 98 11/22/17 20:37 Constitutional: Yes: Calm Neck: Yes: Trachea Midline Cardiovascular: Yes: Regular Rate and Rhythm, S1, S2 Respiratory: Yes: CTA Bilaterally Gastrointestinal: Yes: Normal Bowel Sounds, Soft Edema: No Labs: INR, PTT INR 1.29 (0.82-1.09) H 11/22/17 09:50 Problem List - Problems (1) Abnormal laboratory test Assessment/Plan: appreicate GI note\ on prednisone work up in progress avoid all hepatotoxic meds MRI done shows cirhosis slight decrease in LFT Code(s): R89.9 - UNSP ABNORMAL FINDING IN SPECIMENS FROM OTH ORG/TISS (2) Elevated transaminase level Assessment/Plan: on prednisone MRI done- cirrhosis trend LFT possible autoimminue hepatits MECCA and Anti smooth muscle and DOCTOR OF PODIATRIC MEDICINE antibodies positve Code(s): R74.0 - NONSPEC ELEV OF LEVELS OF TRANSAMNS & LACTIC ACID DEHYDRGNSE (3) Ear ache Assessment/Plan: ENT consult noted- right ear - hard wax debrox dropsi n right ear and FU with ENT in one week Code(s): H92.09 - OTALGIA, UNSPECIFIED EAR (4) IDDM (insulin dependent diabetes mellitus) Assessment/Plan: sliding scale hgba1c 11.1 endocrine note appreciated levemir dose increased to 24 units BID Code(s): E11.9 - TYPE 2 DIABETES MELLITUS WITHOUT COMPLICATIONS; Z79.4 - [employer] EXAM[employer]ER (CURRENT) USE OF INSULIN
[2017-11-23 10:48] LABS: ALBUMIN 2.9 g/dl (3.4-5.0); ANION GAP 8 (8-16); BILIRUBIN,DIRECT 2.2 mg/dL (0.0-0.2); BLOOD UREA NITROGEN 21 mg/dL (7-18); CALCIUM 8.2 mg/dL (8.5-10.1); CHLORIDE 104 mmol/L (98-107); CO2 23 mmol/L (21-32); CREATININE 1.1 mg/dL (0.55-1.02); GLUCOSE,RANDOM 276 mg/dL (74-106); POTASSIUM 3.9 mmol/L (3.5-5.1); SODIUM 135 mmol/L (136-145)
--- NOTE | 2017-11-23 10:48 | PN ---
Progress Note, Physician History of Present Illness: No events Comfortable. Clinically the same - Current Medication List Current Medications: Active Medications Budesonide/Formoterol Fumarate (Symbicort 160/4.5mcg -) 1 puff IH BID [facility] Last Admin: 11/23/17 09:45 Dose: 1 puff Carbamide Perox/Anhydrous Glycerin (Debrox -) 5 drop AD BID [facility] Stop: 11/25/17 21:59 Last Admin: 11/23/17 09:45 Dose: 5 drop Fluticasone Propionate (Flonase -) 1 spray NS BID [facility] Last Admin: 11/23/17 09:45 Dose: 1 spray Sodium Chloride (Normal Saline -) 1,000 mls @ 42 mls/hr IV ASDIR [facility] Last Admin: 11/23/17 06:13 Dose: 42 mls/hr Insulin Aspart (Novolog Vial Sliding Scale -) 1 vial SQ TIDAC [facility] PRN Reason: Protocol Last Admin: 11/23/17 06:17 Dose: 8 units Insulin Detemir (Levemir Vial) 20 units SQ BID@0700,2200 [facility] Last Admin: 11/23/17 06:18 Dose: 20 units Multi-Ingredient Lotion (Eucerin (Small Jar) -) 1 applic TP BID [facility] Last Admin: 11/23/17 09:46 Dose: 1 applic Pantoprazole Sodium (Protonix -) 20 mg PO DAILY [facility] Last Admin: 11/23/17 09:45 Dose: 20 mg Prednisone (Deltasone -) 60 mg PO DAILY [facility] Last Admin: 11/23/17 09:45 Dose: 60 mg - Objective Vital Signs: Vital Signs Temperature 98.1 F 11/23/17 06:00 Pulse Rate 56 L 11/23/17 06:00 Respiratory Rate 20 11/23/17 06:00 Blood Pressure 114/53 11/23/17 06:00 O2 Sat by Pulse Oximetry (%) 98 11/22/17 20:37 Constitutional: Yes: Well Nourished, No Distress Eyes: Yes: Conjunctiva Clear HENT: Yes: Atraumatic Neck: Yes: Supple Cardiovascular: Yes: Regular Rate and Rhythm Respiratory: Yes: Regular Gastrointestinal: Yes: Soft Neurological: Yes: Alert, Oriented Labs: INR, PTT INR 1.29 (0.82-1.09) H 11/22/17 09:50 CBCD WBC 5.9 K/mm3 (4.0-10.0) 11/22/17 06:20 RBC 4.03 M/mm3 (3.60-5.2) 11/22/17 06:20 Hgb 12.1 GM/dL (10.7-15.3) 11/22/17 06:20 Hct 37.3 % (32.4-45.2) 11/22/17 06:20 MCV 92.5 fl (80-96) 11/22/17 06:20 MCHC 32.4 g/dl (32.0-36.0) 11/22/17 06:20 RDW 15.4 % (11.6-15.6) 11/22/17 06:20 Plt Count 108 K/MM3 (134-434) L 11/22/17 06:20 MPV 8.8 fl (7.5-11.1) 11/22/17 06:20 CMP Sodium 130 mmol/L (136-145) L 11/22/17 09:50 Potassium 4.0 mmol/L (3.5-5.1) 11/22/17 09:50 Chloride 102 mmol/L (98-107) 11/22/17 09:50 Carbon Dioxide 20 mmol/L (21-32) L 11/22/17 09:50 Anion Gap 8 (8-16) 11/22/17 09:50 BUN 15 mg/dL (7-18) 11/22/17 09:50 Creatinine 1.0 mg/dL (0.55-1.02) 11/22/17 09:50 Creat Clearance w eGFR 54.66 (>60) 11/22/17 09:50 Calcium 8.0 mg/dL (8.5-10.1) L 11/22/17 09:50 Total Bilirubin 4.8 mg/dL (0.2-1.0) H 11/22/17 09:50 AST 1148 U/L (15-37) H 11/22/17 09:50 ALT 726 U/L (12-78) H 11/22/17 09:50 Alkaline Phosphatase 307 U/L (45-117) H 11/22/17 09:50 Total Protein 7.9 g/dl (6.4-8.2) 11/22/17 09:50 Albumin 3.0 g/dl (3.4-5.0) L 11/22/17 09:50 Laboratory Results - last 24 hr 11/22/17 11/22/17 11/22/17 06:20 09:50 09:50 PT with INR 14.60 H INR 1.29 H Sodium 133 L Potassium 4.0 Chloride 102 Carbon Dioxide 23 20 L Anion Gap 8 8 BUN 15 15 Creatinine 1.0 1.0 Creat Clearance w eGFR 54.66 POC Glucometer Random Glucose 287 H 300 H Calcium 7.9 L 8.0 L Total Bilirubin 4.9 H 4.8 H Direct Bilirubin 3.9 H 3.7 H AST 1191 H 1148 H ALT 722 H 726 H Alkaline Phosphatase 286 H 307 H Creatine Kinase 75 Total Protein 7.3 7.9 Albumin 2.7 L 3.0 L 11/22/17 11/22/17 11/22/17 11:33 16:41 21:45 PT with INR INR Sodium Potassium Chloride Carbon Dioxide Anion Gap BUN Creatinine Creat Clearance w eGFR POC Glucometer 353 365 349 Random Glucose Calcium Total Bilirubin Direct Bilirubin AST ALT Alkaline Phosphatase Creatine Kinase Total Protein Albumin 11/23/17 11/23/17 06:14 10:05 PT with INR 13.50 H INR 1.19 H Sodium Potassium Chloride Carbon Dioxide Anion Gap BUN Creatinine Creat Clearance w eGFR POC Glucometer 356 Random Glucose Calcium Total Bilirubin Direct Bilirubin AST ALT Alkaline Phosphatase Creatine Kinase Total Protein Albumin Problem List - Problems (1) Cholestasis Code(s): K83.1 - OBSTRUCTION OF BILE DUCT (2) Transaminitis Code(s): R74.0 - NONSPEC ELEV OF LEVELS OF TRANSAMNS & LACTIC ACID DEHYDRGNSE (3) Elevated transaminase level Code(s): R74.0 - NONSPEC ELEV OF LEVELS OF TRANSAMNS & LACTIC ACID DEHYDRGNSE (4) Autoimmune hepatitis Code(s): K75.4 - AUTOIMMUNE HEPATITIS (5) Autoimmune hepatitis treated with steroids Code(s): K75.4 - AUTOIMMUNE HEPATITIS Assessment/Plan Avoid non-essential medications Contiue daily CMP, dir. bili, PT/INR
[2017-11-23 10:49] LABS: ALK PHOS 267 U/L (45-117); TOT PROT 7.6 g/dl (6.4-8.2)
[2017-11-23 10:52] LABS: INR 1.19 (0.82-1.09); PROTHROMBIN TIME (PATIENT) 13.5 SEC (9.98-11.88)
[2017-11-23 10:54] LABS: SGOT/AST 742 U/L (15-37); SGPT/ALT 596 U/L (12-78)
[2017-11-23 10:56] LABS: BASO % 0.6 % (0-2.0); EOS % 0.1 % (0-4.5); HEMATOCRIT 37.4 % (32.4-45.2); HEMOGLOBIN 12.2 GM/dL (10.7-15.3); LYMPH % 27.7 % (8-40); MCH 29.9 pg (25.7-33.7); MCHC 32.7 g/dl (32.0-36.0); MEAN CELL VOLUME 91.3 fl (80-96); MEAN PLT VOLUME 8.6 fl (7.5-11.1); MONO % 10.7 % (3.8-10.2); NEUT % 60.9 % (42.8-82.8); PLATELET COUNT 137 K/MM3 (134-434); RDW 15.4 % (11.6-15.6); WHITE BLOOD COUNT 9.9 K/mm3 (4.0-10.0)
[2017-11-24] MEDS: SODIUM CHLORIDE 1,000 ML IV SCH (02:39)
[2017-11-24] MEDS: INSULIN DETEMIR 100 UNITS/ML MDV SQ SCH (06:40)
[2017-11-24] MEDS: INSULIN SLIDING SCALE (NOVOLOG) 1 VIAL SQ SCH ×3 (06:41→16:55)
[2017-11-24] MEDS ORDERED: DISP SYRIN IM ONE (07:47)
[2017-11-24] MEDS ORDERED: [UNRECOGNIZED DRUG - OTHER] IM ONE (07:47)
[2017-11-24] MEDS ORDERED: HEPATITIS A IM ONE (07:47)
--- NOTE | 2017-11-24 07:54 | PN ---
Progress Note, Physician History of Present Illness: No events Comfortable. Clinically the same - Current Medication List Current Medications: Active Medications Budesonide/Formoterol Fumarate (Symbicort 160/4.5mcg -) 1 puff IH BID [facility] Last Admin: 11/23/17 21:47 Dose: 1 puff Carbamide Perox/Anhydrous Glycerin (Debrox -) 5 drop AD BID [facility] Stop: 11/25/17 21:59 Last Admin: 11/23/17 21:51 Dose: 5 drop Fluticasone Propionate (Flonase -) 1 spray NS BID [facility] Last Admin: 11/23/17 21:46 Dose: 1 spray Sodium Chloride (Normal Saline -) 1,000 mls @ 42 mls/hr IV ASDIR [facility] Last Admin: 11/24/17 02:39 Dose: 42 mls/hr Insulin Aspart (Novolog Vial Sliding Scale -) 1 vial SQ TIDAC [facility] PRN Reason: Protocol Last Admin: 11/24/17 06:41 Dose: 2 units Insulin Detemir (Levemir Vial) 24 units SQ BID@0700,2200 [facility] Last Admin: 11/24/17 06:40 Dose: 24 units Multi-Ingredient Lotion (Eucerin (Small Jar) -) 1 applic TP BID [facility] Last Admin: 11/23/17 21:46 Dose: 1 applic Pantoprazole Sodium (Protonix -) 20 mg PO DAILY [facility] Last Admin: 11/23/17 09:45 Dose: 20 mg Prednisone (Deltasone -) 60 mg PO DAILY [facility] Last Admin: 11/23/17 09:45 Dose: 60 mg - Objective Vital Signs: Vital Signs Temperature 97.4 F L 11/24/17 06:00 Pulse Rate 50 L 11/24/17 06:00 Respiratory Rate 20 11/24/17 06:00 Blood Pressure 121/48 11/24/17 06:00 O2 Sat by Pulse Oximetry (%) 98 11/23/17 21:00 Constitutional: Yes: Well Nourished, No Distress, Calm Eyes: No: Sclera Icterus Neurological: Yes: Alert, Oriented Labs: INR, PTT INR 1.19 (0.82-1.09) H 11/23/17 10:05 Laboratory Results - last 24 hr 11/20/17 11/21/17 11/23/17 16:40 06:25 10:05 WBC RBC Hgb Hct MCV MCH MCHC RDW Plt Count MPV Neutrophils % Lymphocytes % Monocytes % Eosinophils % Basophils % PT with INR 13.50 H INR 1.19 H Sodium Potassium Chloride Carbon Dioxide Anion Gap BUN Creatinine Creat Clearance w eGFR POC Glucometer Random Glucose Calcium Total Bilirubin Direct Bilirubin AST ALT Alkaline Phosphatase Total Protein Albumin EBV DNA (PCR) 1200 EBV DNA Quant PCR log10 3.079 TB Test (QFT) Negative 11/23/17 11/23/17 11/23/17 10:05 10:05 10:05 WBC 9.9 D RBC 4.10 Hgb 12.2 Hct 37.4 MCV 91.3 MCH 29.9 MCHC 32.7 RDW 15.4 Plt Count 137 D MPV 8.6 Neutrophils % 60.9 Lymphocytes % 27.7 Monocytes % 10.7 H Eosinophils % 0.1 Basophils % 0.6 PT with INR INR Sodium 135 L Cancelled Potassium 3.9 Cancelled Chloride 104 Cancelled Carbon Dioxide 23 Cancelled Anion Gap 8 Cancelled BUN 21 H Cancelled Creatinine 1.1 H Cancelled Creat Clearance w eGFR 48.96 POC Glucometer Random Glucose 276 H Cancelled Calcium 8.2 L Cancelled Total Bilirubin 3.0 H D Cancelled Direct Bilirubin 2.2 H Cancelled AST 742 H Cancelled ALT 596 H Cancelled Alkaline Phosphatase 267 H Cancelled Total Protein 7.6 Cancelled Albumin 2.9 L Cancelled EBV DNA (PCR) EBV DNA Quant PCR log10 TB Test (QFT) 11/23/17 11/23/17 11/23/17 11:57 16:49 21:45 WBC RBC Hgb Hct MCV MCH MCHC RDW Plt Count MPV Neutrophils % Lymphocytes % Monocytes % Eosinophils % Basophils % PT with INR INR Sodium Potassium Chloride Carbon Dioxide Anion Gap BUN Creatinine Creat Clearance w eGFR POC Glucometer 261 348 412 Random Glucose Calcium Total Bilirubin Direct Bilirubin AST ALT Alkaline Phosphatase Total Protein Albumin EBV DNA (PCR) EBV DNA Quant PCR log10 TB Test (QFT) 11/24/17 06:39 WBC RBC Hgb Hct MCV MCH MCHC RDW Plt Count MPV Neutrophils % Lymphocytes % Monocytes % Eosinophils % Basophils % PT with INR INR Sodium Potassium Chloride Carbon Dioxide Anion Gap BUN Creatinine Creat Clearance w eGFR POC Glucometer 209 Random Glucose Calcium Total Bilirubin Direct Bilirubin AST ALT Alkaline Phosphatase Total Protein Albumin EBV DNA (PCR) EBV DNA Quant PCR log10 TB Test (QFT) Problem List - Problems (1) Cholestasis Code(s): K83.1 - OBSTRUCTION OF BILE DUCT (2) Transaminitis Code(s): R74.0 - NONSPEC ELEV OF LEVELS OF TRANSAMNS & LACTIC ACID DEHYDRGNSE (3) Elevated transaminase level Code(s): R74.0 - NONSPEC ELEV OF LEVELS OF TRANSAMNS & LACTIC ACID DEHYDRGNSE (4) Autoimmune hepatitis Code(s): K75.4 - AUTOIMMUNE HEPATITIS (5) Autoimmune hepatitis treated with steroids Code(s): K75.4 - AUTOIMMUNE HEPATITIS Assessment/Plan High risk for steroid-related complications Continue daily CMP, dir. bili TPMT activity Vaccinate against HAV, HBV. Follow up for HBV #2, #3 with PCP Endocrinology to asses DM while on steroid therapy Follow up with GI in 2 weeks to asses for steroid taper and 6MP/azathioprine
[2017-11-24 07:58] LABS: CHLORIDE 104 mmol/L (98-107); POTASSIUM 3.9 mmol/L (3.5-5.1); SODIUM 139 mmol/L (136-145)
[2017-11-24 08:07] LABS: ALBUMIN 2.6 g/dl (3.4-5.0); ALK PHOS 235 U/L (45-117); ANION GAP 7 (8-16); BILIRUBIN,TOTAL 2.3 mg/dL (0.2-1.0); BLOOD UREA NITROGEN 18 mg/dL (7-18); CALCIUM 7.7 mg/dL (8.5-10.1); CO2 28 mmol/L (21-32); GLUCOSE,RANDOM 211 mg/dL (74-106); TOT PROT 7.1 g/dl (6.4-8.2)
[2017-11-24] MEDS ORDERED: INSULIN (NOVOLOG) ASPART 100 UNITS/ML 10ML VIAL ONE (08:15)
[2017-11-24 08:23] LABS: SGOT/AST 543 U/L (15-37); SGPT/ALT 503 U/L (12-78)
[2017-11-24] MEDS ORDERED: HEPATITIS B VIRUS VACCINE-PF 20 MCG/1ML PRE-FILLED SYRINGE IM ONE (09:00)
[2017-11-24] MEDS ORDERED: HEPATITIS A VIRUS VACCINE/PF 720 UNIT/0.5 ML VIAL IM ONE (09:00)
[2017-11-24] MEDS ORDERED: PT OWN MED DRAWER 7, Y5N ONE ×2 (09:20→16:57)
[2017-11-24] MEDS: predniSONE 20 MG TABLET (UD) PO SCH (09:25)
[2017-11-24] MEDS: BUDESONIDE/FORMETEROL FUMARATE 160/4.5 mcg INHALER IH SCH (09:26)
[2017-11-24] MEDS: FLUTICASONE PROP 0.05% 16 GM NASAL SPRAY NS SCH (09:26)
[2017-11-24] MEDS: CARBAMIDE PEROXIDE 6.5% OTIC 15 ML BOTTLE AD SCH (09:26)
[2017-11-24] MEDS: PANTOPRAZOLE 20 MG TABLET (FP) PO SCH (09:26)
[2017-11-24] MEDS: MINERAL OIL/PETROLAT/WATER TOPICAL CREAM 113 GM JAR TP SCH (10:44)
[2017-11-24 11:20] LABS: WHITE BLOOD COUNT 9.6 K/mm3 (4.0-10.0)
[2017-11-24 11:21] LABS: HEMATOCRIT 36.2 % (32.4-45.2); HEMOGLOBIN 11.7 GM/dL (10.7-15.3); LYMPH % 28.4 % (8-40); MCH 29.6 pg (25.7-33.7); MCHC 32.2 g/dl (32.0-36.0); MEAN CELL VOLUME 91.6 fl (80-96); NEUT % 58.9 % (42.8-82.8); PLATELET COUNT 135 K/MM3 (134-434); RBC 3.95 M/mm3 (3.60-5.2); RDW 15.6 % (11.6-15.6)
[2017-11-24 11:22] LABS: BASO % 0.6 % (0-2.0); EOS % 0.2 % (0-4.5); MONO % 11.9 % (3.8-10.2)
[2017-11-24 15:27] VITALS: BP 145/78; PULSE 65; TEMP 98.6
--- NOTE | 2017-11-24 15:42 | PN ---
Progress Note, Physician Chief Complaint: abdominal pain History of Present Illness: NAD, in bed, self ambulatory seen by GI - Current Medication List Current Medications: Active Medications Budesonide/Formoterol Fumarate (Symbicort 160/4.5mcg -) 1 puff IH BID [facility] Last Admin: 11/24/17 09:26 Dose: 1 puff Carbamide Perox/Anhydrous Glycerin (Debrox -) 5 drop AD BID [facility] Stop: 11/25/17 21:59 Last Admin: 11/24/17 09:26 Dose: 5 drop Fluticasone Propionate (Flonase -) 1 spray NS BID [facility] Last Admin: 11/24/17 09:26 Dose: 1 spray Sodium Chloride (Normal Saline -) 1,000 mls @ 42 mls/hr IV ASDIR [facility] Last Admin: 11/24/17 02:39 Dose: 42 mls/hr Insulin Aspart (Novolog Vial Sliding Scale -) 1 vial SQ TIDAC [facility] PRN Reason: Protocol Last Admin: 11/24/17 11:42 Dose: Not Given Insulin Detemir (Levemir Vial) 24 units SQ BID@0700,2200 [facility] Last Admin: 11/24/17 06:40 Dose: 24 units Multi-Ingredient Lotion (Eucerin (Small Jar) -) 1 applic TP BID [facility] Last Admin: 11/24/17 10:44 Dose: 1 applic Pantoprazole Sodium (Protonix -) 20 mg PO DAILY [facility] Last Admin: 11/24/17 09:26 Dose: 20 mg Prednisone (Deltasone -) 60 mg PO DAILY [facility] Last Admin: 11/24/17 09:25 Dose: 60 mg - Objective Vital Signs: Vital Signs Temperature 98.6 F 11/24/17 14:25 Pulse Rate 65 11/24/17 14:25 Respiratory Rate 20 11/24/17 14:25 Blood Pressure 145/78 11/24/17 14:25 O2 Sat by Pulse Oximetry (%) 98 11/24/17 09:00 Constitutional: Yes: Well Nourished, No Distress, Calm Cardiovascular: Yes: Regular Rate and Rhythm Respiratory: Yes: Regular Gastrointestinal: Yes: Normal Bowel Sounds, Soft, Abdomen, Obese Musculoskeletal: Yes: WNL Extremities: Yes: WNL Edema: No Peripheral Pulses WNL: Yes Neurological: Yes: Alert, Oriented Psychiatric: Yes: Alert, Oriented Labs: CBC, BMP 11/24/17 06:47 11/24/17 06:47 INR, PTT INR 1.19 (0.82-1.09) H 11/23/17 10:05 Problem List - Problems (1) Elevated transaminase level Assessment/Plan: -GI consult -labs trending down -monitor labs outpatient Code(s): R74.0 - NONSPEC ELEV OF LEVELS OF TRANSAMNS & LACTIC ACID DEHYDRGNSE (2) HLD (hyperlipidemia) Code(s): E78.5 - HYPERLIPIDEMIA, UNSPECIFIED (3) HTN (hypertension) Assessment/Plan: -improved Code(s): I10 - ESSENTIAL (PRIMARY) HYPERTENSION (4) IDDM (insulin dependent diabetes mellitus) Assessment/Plan: -insulin -endocrinology consult -BGM -diabetic diet -RD consult -likely to elevate further due to steroids Code(s): E11.9 - TYPE 2 DIABETES MELLITUS WITHOUT COMPLICATIONS; Z79.4 - [facility] (CURRENT) USE OF INSULIN Assessment/Plan See problem list
== END 2017-11-24 19:11 | disposition home or self-care (01) | DRG 441 ==
LOC: JER 18:20 → JERBED 21:20 → J5S 11-18 03:14
PROVIDERS: ADMIT Internal Medicine; ATTEND Family Medicine
DX: K75.4 Autoimmune hepatitis (principal); K83.1 Obstruction of bile duct; N17.9 Acute kidney failure, unspecified; J44.9 Chronic obstructive pulmonary disease, unspecified; I10 Essential (primary) hypertension; E11.9 Type 2 diabetes mellitus without complications; E78.5 Hyperlipidemia, unspecified; R74.0 Nonspecific elevation of levels of transaminase and lactic acid dehydrogenase [LDH]; H92.21 Otorrhagia, right ear
CPT/HCPCS: 36415; 71046-TC-FY; 74183-TC; 76705-TC; 80048; 80053; 80074; 80076; 80307; 81003; 82150; 82248; 82550; 82728; 82784; 82962; 82977; 83036; 83516; 83540; 83550; 83690; 85025; 85610; 86038; 86376; 86480; 86645; 86704; 86706; 86708; 86787; 86803; 87086; 87340; 87799; 90670; 93005; 93010; 99282-25

== ENCOUNTER 2018-01-18 16:15 | Inpatient (IN) | payer BC, OTHER ==
[2018-01-18] MEDS ORDERED: ALBUTEROL SO4 2.5/IPRATROPIUM 0.5 INH SOL 3 ML VIAL.NEB. NEB ONE ×2 (16:32→17:19)
--- NOTE | 2018-01-18 16:32 | PDOC ---
Rapid Medical Evaluation Time Seen by Provider: 01/18/18 16:29 Medical Evaluation: Allergies Allergy/AdvReac Type Severity Reaction Status Date / Time No Known Allergies Allergy Verified 11/17/17 18:27 01/18/18 16:29 I have performed a brief in-person evaluation of this patient. The patient presents with a chief complaint of: cough x 4 days, sent in by visiting nurse, r/o pneumonia, pt c/o of pain with coughing, denies N/V/D Pertinent physical exam findings: b/l expiratory wheezing to LL I have ordered the following: labs, cxr, duoneb, ekg The patient will proceed to the ED for further evaluation. Discharge Disposition - Diagnosis Cough - Referrals - Patient Instructions - Post Discharge Activity
[2018-01-18 16:33] VITALS: BMI 30.1
[2018-01-18 17:32] LABS: BASO % 0.4 % (0-2.0); HEMATOCRIT 39.6 % (32.4-45.2); HEMOGLOBIN 13.6 GM/dL (10.7-15.3); LYMPH % 7.9 % (8-40); MCH 31.7 pg (25.7-33.7); MCHC 34.4 g/dl (32.0-36.0); MEAN CELL VOLUME 92.2 fl (80-96); MEAN PLT VOLUME 7.2 fl (7.5-11.1); MONO % 3.2 % (3.8-10.2); NEUT % 88.5 % (42.8-82.8); PLATELET COUNT 237 K/MM3 (134-434); RDW 14.9 % (11.6-15.6); WHITE BLOOD COUNT 12.2 K/mm3 (4.0-10.0)
[2018-01-18 18:00] LABS: ALBUMIN 2.9 g/dl (3.4-5.0); ANION GAP 6 (8-16); BILIRUBIN,TOTAL 0.4 mg/dL (0.2-1.0); BLOOD UREA NITROGEN 25 mg/dL (7-18); CALCIUM 8.8 mg/dL (8.5-10.1); CHLORIDE 96 mmol/L (98-107); CO2 28 mmol/L (21-32); POTASSIUM 4.8 mmol/L (3.5-5.1); SGOT/AST 39 U/L (15-37); SGPT/ALT 29 U/L (12-78); SODIUM 130 mmol/L (136-145); TOT PROT 6.3 g/dl (6.4-8.2)
[2018-01-18 18:01] LABS: ALK PHOS 111 U/L (45-117)
[2018-01-18 18:11] LABS: GLUCOSE,RANDOM 344 mg/dL (74-106)
[2018-01-19] MEDS ORDERED: ALBUTEROL SO4 2.5/IPRATROPIUM 0.5 INH SOL 3 ML VIAL.NEB. NEB STA ×2 (00:37→03:09)
[2018-01-19] MEDS ORDERED: methylPREDNISolone NA SUCC 125 MG/2 ML VIAL IVPB ONE (00:37)
[2018-01-19] MEDS ORDERED: MAGNESIUM SULF 50% (8.12 MEQ/2 ML-1 GM VIAL) IVPB ONE (00:38)
--- NOTE | 2018-01-19 00:38 | PDOC ---
History of Present Illness - General History Source: Patient Exam Limitations: No Limitations - History of Present Illness Initial Comments: 01/19/18 01:23 The patient is a 72 year old female with a significant PMH of COPD, diabetes, HTN, hyperlipidemia who presents to the emergency department with persistent cough and shortness of breath beginning approximately earlier today. The patient reports using several nebulizer treatments for her cough prior to arrival to some relief. She reports her cough has been so severe and persistent that she has developed associated upper abdominal pain in the region over the liver. She states she believes she has developed a bruise in this upper abdominal region secondary to her persistent coughing. The patient denies chest pain. The patient denies fevers or chills. She denies active smoking. The patient denies headache and dizziness. Denies nausea, vomit, diarrhea and constipation. Denies dysuria, frequency, urgency and hematuria. Allergies: NKA Past surgical history: Hernia repair. Social history: Former smoker. No reported alcohol or drug use. PCP: Dr. Melendez <Melquiades Alcazar - Last Filed: 01/19/18 01:23> - General History Source: Patient <Jesse Garza - Last Filed: 01/19/18 04:04> - General Chief Complaint: Respiratory Stated Complaint: COUGH/RUQ abd pain Time Seen by Provider: 01/18/18 16:29 Past History <Melquiades Alcazar - Last Filed: 01/19/18 01:23> - Past Medical History COPD: Yes DVT: No Diabetes: Yes HTN: Yes Hypercholesterolemia: Yes Liver Disease: Yes (??) - Surgical History Abdominal Surgery: Yes (hernia) - Suicide/Smoking/Psychosocial Hx Smoking History: Never smoked Have you smoked in the past 12 months: No If you are a former smoker, when did you quit?: 5 years ago Information on smoking cessation initiated: No Hx Alcohol Use: No Drug/Substance Use Hx: No Substance Use Type: None <Jesse Garza - Last Filed: 01/19/18 04:04> - Past Medical History Allergies/Adverse Reactions: Allergies Allergy/AdvReac Type Severity Reaction Status Date / Time No Known Allergies Allergy Verified 01/18/18 16:33 Home Medications: Ambulatory Orders Budesonide/Formeterol Fumarate [SYMBICORT 160/4.5mcg -] 1 puff IH BID #1 inhaler 11/24/17 Carbamide Peroxide 6.5% [Debrox -] 5 drop AD BID #1 bottle 11/24/17 Fluticasone Prop 0.05% Nasal [Flonase -] 1 spray NS BID #1 inh 11/24/17 Pantoprazole Sodium [Protonix -] 20 mg PO DAILY #30 tablet.ec 11/24/17 predniSONE [Deltasone -] 60 mg PO DAILY #90 tablet 11/24/17 Review of Systems - Review of Systems Able to Perform ROS?: Yes Comments:: 01/19/18 01:23 CONSTITUTIONAL: Absent: fever, chills, diaphoresis, generalized weakness, malaise, loss of appetite HEENT: Absent: rhinorrhea, nasal congestion, throat pain, throat swelling, difficulty swallowing, mouth swelling, ear pain, eye pain, visual Changes CARDIOVASCULAR: Absent: chest pain, syncope, palpitations, irregular heart rate, lightheadedness , peripheral edema RESPIRATORY: (+) Cough (+) Shortness of breath Absent: dyspnea with exertion, orthopnea, wheezing, stridor, hemoptysis GASTROINTESTINAL: (+) Upper abdominal pain with associated bruising. Absent: abdominal distension, nausea, vomiting, diarrhea, constipation, melena, hematochezia GENITOURINARY: Absent: dysuria, frequency, urgency, hesitancy, hematuria, flank pain, genital pain MUSCULOSKELETAL: Absent: myalgia, arthralgia, joint swelling SKIN: Absent: rash, itching, pallor HEMATOLOGIC/IMMUNOLOGIC: Absent: easy bleeding, easy bruising, lymphadenopathy, frequent infections ENDOCRINE: Absent: unexplained weight gain, unexplained weight loss, heat intolerance, cold intolerance NEUROLOGIC: Absent: headache, focal weakness or paresthesias, dizziness, unsteady gait, seizure, mental status changes, bladder or bowel incontinence PSYCHIATRIC: Absent: anxiety, depression, suicidal or homicidal ideation, hallucinations. <Melquiades Alcazar - Last Filed: 01/19/18 01:23> *Physical Exam - Vital Signs Last Vital Signs Temp Pulse Resp BP Pulse Ox 98.3 F 73 19 165/70 97 01/18/18 16:31 01/18/18 16:31 01/18/18 16:31 01/18/18 16:31 01/18/18 16:31 - Physical Exam Comments: 01/19/18 01:23 GENERAL: Well developed, well nourished. Awake and alert. No acute distress. HEENT: Normocephalic, atraumatic. PERRLA, EOMI. No conjunctival pallor. Sclera are non- icteric. Moist mucous membranes. Oropharynx is clear. NECK: Supple. Full ROM. No JVD. Carotid pulses 2+ and symmetric, without bruits. No thyromegaly. No lymphadenopathy. CARDIOVASCULAR: Regular rate and rhythm. No murmurs, rubs, or gallops. Distal pulses are 2+ and symmetric. PULMONARY: (+) Coarse bilateral wheezing with mild conversational dyspnea. No rales or rhonchi. ABDOMINAL: Soft. Non-tender. Non-distended. No rebound or guarding. No organomegaly. Normoactive bowel sounds. MUSCULOSKELETAL Normal range of motion at all joints. No bony deformities or tenderness. No CVA tenderness. EXTREMITIES: No cyanosis. No clubbing. No edema. No calf tenderness. SKIN: Warm and dry. Normal capillary refill. No rashes. No jaundice. NEUROLOGICAL: Alert, awake, appropriate. Cranial nerves 2-12 intact. No deficits to light touch and temperature in face, upper extremities and lower extremities. No motor deficits in the in face, upper extremities and lower extremities. Normoreflexic in the upper and lower extremities. Normal speech. Toes are downgoing bilaterally. PSYCHIATRIC: Cooperative. Good eye contact. Appropriate mood and affect. <Melquiades Alcazar - Last Filed: 01/19/18 01:23> - Vital Signs Last Vital Signs Temp Pulse Resp BP Pulse Ox 98.3 F 73 19 165/70 97 01/18/18 16:31 01/18/18 16:31 01/18/18 16:31 01/18/18 16:31 01/18/18 16:31 <Jesse Garza - Last Filed: 01/19/18 04:04> Heart Score/ECG Review #1 01/19/18 00:41 EKG done at 17:08 Sinus rhythm with marked sinus arrhythmia Left axis deviation Minimal voltage criteria for LVH, may be normal variant ST & T wave abnormality, consider inferolateral ischemia Abnormal ECG <Melquiades Alcazar - Last Filed: 01/19/18 01:23> ED Treatment Course - LABORATORY CBC & Chemistry Diagram: 01/18/18 17:07 01/18/18 17:07 - ADDITIONAL ORDERS Additional order review: Laboratory Results 01/18/18 01/18/18 17:07 17:07 Sodium 130 L Potassium 4.8 Chloride 96 L Carbon Dioxide 28 Anion Gap 6 L BUN 25 H Creatinine 1.0 Creat Clearance w eGFR 54.66 Random Glucose 344 H* Lactic Acid 1.5 Calcium 8.8 Total Bilirubin 0.4 D AST 39 H ALT 29 Alkaline Phosphatase 111 Total Protein 6.3 L Albumin 2.9 L 01/18/18 17:07 RBC 4.30 MCV 92.2 MCHC 34.4 RDW 14.9 MPV 7.2 L D Neutrophils % 88.5 H D Lymphocytes % 7.9 L D Monocytes % 3.2 L Eosinophils % 0.0 D Basophils % 0.4 - Medications Given in the ED: ED Medications Discontinued Medications Generic Name Dose Route Start Last Admin Trade Name Freq PRN Reason Stop Dose Admin Albuterol/Ipratropium 1 amp 01/18/18 16:32 01/18/18 17:22 Duoneb - NEB 01/18/18 16:33 1 amp ONCE ONE Administration <Melquiades Alcazar - Last Filed: 01/19/18 01:23> - LABORATORY CBC & Chemistry Diagram: 01/18/18 17:07 01/18/18 17:07 - ADDITIONAL ORDERS Additional order review: Laboratory Results 01/18/18 01/18/18 17:07 17:07 Sodium 130 L Potassium 4.8 Chloride 96 L Carbon Dioxide 28 Anion Gap 6 L BUN 25 H Creatinine 1.0 Creat Clearance w eGFR 54.66 Random Glucose 344 H* Lactic Acid 1.5 Calcium 8.8 Total Bilirubin 0.4 D AST 39 H ALT 29 Alkaline Phosphatase 111 Total Protein 6.3 L Albumin 2.9 L 01/18/18 17:07 RBC 4.30 MCV 92.2 MCHC 34.4 RDW 14.9 MPV 7.2 L D Neutrophils % 88.5 H D Lymphocytes % 7.9 L D Monocytes % 3.2 L Eosinophils % 0.0 D Basophils % 0.4 - Medications Given in the ED: ED Medications Discontinued Medications Generic Name Dose Route Start Last Admin Trade Name Freq PRN Reason Stop Dose Admin Albuterol/Ipratropium 1 amp 01/18/18 16:32 01/18/18 17:22 Duoneb - NEB 04/10/18 16:33 1 amp ONCE ONE Administration <Jesse Garza - Last Filed: 01/19/18 04:04> Medical Decision Making - Medical Decision Making 01/19/18 04:02 Dr. Garza: The scribe's documentation has been prepared under my direction and personally reviewed by me in its entirery. I confirm that the note above accurately reflects all work, treatment, procedures, and medical decision making performed by me. Pt still feels sob and is wheezing despite pt has been given medications. Pt to be admitted to continue therapy <Jesse Garza - Last Filed: 01/19/18 04:04> *DC/Admit/Observation/Transfer - Attestations Scribe Attestion: 01/19/18 01:23 Documentation prepared by Melquiades Alcazar, acting as electromedical equipment technician for Jesse Garza DO. <Melquiades Alcazar - Last Filed: 01/19/18 01:23> - Discharge Dispostion Admit: Yes <Jesse Garza - Last Filed: 01/19/18 04:04> Diagnosis at time of Disposition: Cough, COPD (chronic obstructive pulmonary disease) - Discharge Dispostion Condition at time of disposition: Stable - Referrals Referrals: Ju Melendez MD [Primary Care Provider] - - Patient Instructions - Post Discharge Activity
[2018-01-19] MEDS ORDERED: MAGNESIUM SULF 50% (8.12 MEQ/2 ML-1 GM VIAL) ONE (01:03)
[2018-01-19] MEDS ORDERED: methylPREDNISolone NA SUCC 125 MG/2 ML VIAL ONE (01:03)
[2018-01-19] MEDS ORDERED: ALBUTEROL SO4 2.5/IPRATROPIUM 0.5 INH SOL 3 ML VIAL.NEB. NEB ONE ×2 (01:03→08:24)
[2018-01-19 01:54] LABS: INR 0.96 (0.82-1.09); PROTHROMBIN TIME (PATIENT) 10.9 SEC (9.98-11.88)
[2018-01-19] MEDS ORDERED: ALBUTEROL SO4 0.083% IH SOL 2.5 MG/3 ML VIAL.NEB. NEB PRN ×2 (04:21→10:14)
--- NOTE | 2018-01-19 05:18 | HP ---
CHIEF COMPLAINT: Shortness of Breath PCP: Dr. Saleh HISTORY OF PRESENT ILLNESS: 72 F with hx. of COPD, DM, HTN, HLD autoimmune hepatitis who presents with cough and shortness of breath. States her symptoms began earlier today. Notes she used her nebulizer prior to coming to ED and she has noted some relief. States her cough has been so severe she has soreness in her upper abdomen. Denies any chest pain or pressure. No N, V, D. No fevers or chills. ER course was notable for: (1) CXR: No acute process (2) Nebs given (3) Solumedrol Recent Travel: No PAST MEDICAL HISTORY: As above PAST SURGICAL HISTORY: Umbilical Hernia Repair Social History: Smoking:No Alcohol:No Drugs: NO Family History: N/A Allergies No Known Allergies Allergy (Verified 01/18/18 16:33) HOME MEDICATIONS: Home Medications Medication Instructions Recorded Budesonide/Formeterol Fumarate 1 puff IH BID #1 inhaler 11/24/17 [SYMBICORT 160/4.5mcg -] Pantoprazole Sodium [Protonix -] 20 mg PO DAILY #30 tablet.ec 11/24/17 predniSONE [Deltasone -] 60 mg PO DAILY #90 tablet 11/24/17 Aspirin [ASA -] 81 mg PO DAILY 01/19/18 Hydrochlorothiazide [Hctz -] 25 mg PO DAILY 01/19/18 Lisinopril 20 mg PO DAILY 01/19/18 REVIEW OF SYSTEMS CONSTITUTIONAL: Absent: fever, chills, diaphoresis, generalized weakness, malaise, loss of appetite, weight change HEENT: Absent: rhinorrhea, nasal congestion, throat pain, throat swelling, difficulty swallowing, mouth swelling, ear pain, eye pain, visual changes CARDIOVASCULAR: Absent: chest pain, syncope, palpitations, irregular heart rate, lightheadedness , peripheral edema RESPIRATORY: +cough, shortness of breath, dyspnea with exertion, NO orthopnea, + wheezing, NO stridor, hemoptysis GASTROINTESTINAL: Absent: abdominal pain, abdominal distension, nausea, vomiting, diarrhea, constipation, melena, hematochezia GENITOURINARY: Absent: dysuria, frequency, urgency, hesitancy, hematuria, flank pain, genital pain MUSCULOSKELETAL: Absent: myalgia, arthralgia, joint swelling, back pain, neck pain SKIN: Absent: rash, itching, pallor HEMATOLOGIC/IMMUNOLOGIC: Absent: easy bleeding, easy bruising, lymphadenopathy, frequent infections ENDOCRINE: Absent: unexplained weight gain, unexplained weight loss, heat intolerance, cold intolerance NEUROLOGIC: Absent: headache, focal weakness or paresthesias, dizziness, unsteady gait, seizure, mental status changes, bladder or bowel incontinence PSYCHIATRIC: Absent: anxiety, depression, suicidal or homicidal ideation, hallucinations. PHYSICAL EXAMINATION Vital Signs - 24 hr 01/18/18 16:31 Temperature 98.3 F Pulse Rate 73 Respiratory 19 Rate Blood Pressure 165/70 O2 Sat by Pulse 97 Oximetry (%) GENERAL: Awake, alert, and fully oriented, in no acute distress. HEAD: Normal with no signs of trauma. EYES: Pupils equal, round and reactive to light, extraocular movements intact, sclera anicteric, conjunctiva clear. No lid lag. EARS, NOSE, THROAT: Ears normal, nares patent, oropharynx clear without exudates. Moist mucous membranes. NECK: Normal range of motion, supple without lymphadenopathy, JVD, or masses. LUNGS: Bilateral coarse expiratory wheezing and no crackles. No accessory muscle use. HEART: Regular rate and rhythm, normal S1 and S2 without murmur, rub or gallop. ABDOMEN: Soft, nontender, not distended, normoactive bowel sounds, no guarding, no rebound, no masses. No hepatomegaly or splenomegaly. Bruising 3 cm long Right upper abdomen MUSCULOSKELETAL: Normal range of motion at all joints. No bony deformities or tenderness. No CVA tenderness. UPPER EXTREMITIES: 2+ pulses, warm, well-perfused. No cyanosis. No clubbing. No peripheral edema. LOWER EXTREMITIES: 2+ pulses, warm, well-perfused. No calf tenderness. Trace Peripheral Edema NEUROLOGICAL: Cranial nerves II-XII intact. Normal speech. Gait not assessed PSYCHIATRIC: Cooperative. Good eye contact. Appropriate mood and affect. SKIN: Warm, dry, normal turgor, no rashes or lesions noted, normal capillary refill. Laboratory Results - last 24 hr 01/18/18 01/18/18 01/18/18 17:07 17:07 17:07 WBC 12.2 H RBC 4.30 Hgb 13.6 D Hct 39.6 MCV 92.2 MCH 31.7 MCHC 34.4 RDW 14.9 Plt Count 237 D MPV 7.2 L D Neutrophils % 88.5 H D Lymphocytes % 7.9 L D Monocytes % 3.2 L Eosinophils % 0.0 D Basophils % 0.4 PT with INR INR PTT (Actin FS) Sodium 130 L Potassium 4.8 Chloride 96 L Carbon Dioxide 28 Anion Gap 6 L BUN 25 H Creatinine 1.0 Creat Clearance w eGFR 54.66 Random Glucose 344 H* Lactic Acid 1.5 Calcium 8.8 Total Bilirubin 0.4 D AST 39 H ALT 29 Alkaline Phosphatase 111 Total Protein 6.3 L Albumin 2.9 L 01/19/18 01:19 WBC RBC Hgb Hct MCV MCH MCHC RDW Plt Count MPV Neutrophils % Lymphocytes % Monocytes % Eosinophils % Basophils % PT with INR 10.90 INR 0.96 PTT (Actin FS) 24.0 L Sodium Potassium Chloride Carbon Dioxide Anion Gap BUN Creatinine Creat Clearance w eGFR Random Glucose Lactic Acid Calcium Total Bilirubin AST ALT Alkaline Phosphatase Total Protein Albumin CXR: No Acute Process EKG: NSR 72 Qtc 492 Home Medications Medication Instructions Recorded Budesonide/Formeterol Fumarate 1 puff IH BID #1 inhaler 11/24/17 [SYMBICORT 160/4.5mcg -] Pantoprazole Sodium [Protonix -] 20 mg PO DAILY #30 tablet.ec 11/24/17 predniSONE [Deltasone -] 60 mg PO DAILY #90 tablet 11/24/17 Aspirin [ASA -] 81 mg PO DAILY 01/19/18 Hydrochlorothiazide [Hctz -] 25 mg PO DAILY 01/19/18 Lisinopril 20 mg PO DAILY 01/19/18 ASSESSMENT/PLAN: 72 F with hx. of COPD, DM, HTN, HLD autoimmune hepatitis who presents with cough and shortness of breath, being admitted for Acute Exacerbation of COPD 1.) Acute Exacerbation of COPD - Duonebs ATC/PRN - Symbicort - Solumedrol 60 q 12 2,) DM- Uncontrolled - FS- StAT now - HgbA1c - RAISS 3.) HTN - C/W HCTZ and Lisinopril 4.) Autoimmune Hepatitis - Pt. Wanted to hold off starting 6-MP - Steroids 5.) HLD - Lipid Panel - Statin held prior due to abnml Lfts 6.) Hyponatremia - 133 Corrected - Monitor 7.) DVT Ppx - Heparin [address] in Med-Sx Visit type - Emergency Visit Emergency Visit: Yes ED Registration Date: 01/19/18 Care time: The patient presented to the Emergency Department on the above date and was hospitalized for further evaluation of their emergent condition. - New Patient This patient is new to me today: Yes Date on this admission: 01/19/18 - Critical Care Critical Care patient: No Hospitalist Screening - Colonoscopy Questionnaire Colonoscopy Questionnaire: Colonoscopy Questionnaire - Patient: 50 - 75 years old and never had a screening colonoscopy: Unknown History of colon or rectal polyps, or CA: Unknown History of IBD, Crohn's disease or UC: Unknown History of abdominal radiation therapy as a child: Unknown - Relative: 1 with colon or rectal CA, or polyps at age 60 or younger: No Colon or rectal CA diagnosed at age 45 or younger: Unknown Multiple relatives with colon or rectal CA: Unknown - Outcome: Screening Result: Negative Screen
[2018-01-19] MEDS ORDERED: HEPARIN NA (PORCINE) 5,000 UNITS/ML 1ML VIAL SQ SCH (06:00)
[2018-01-19] MEDS ORDERED: INSULIN (NOVOLOG) ASPART 100 UNITS/ML 10ML VIAL ONE (06:44)
[2018-01-19] MEDS ORDERED: HEPARIN NA (PORCINE) 5,000 UNITS/ML 1ML VIAL ONE (06:45)
[2018-01-19] MEDS ORDERED: INSULIN SLIDING SCALE (NOVOLOG) 1 VIAL SQ SCH (07:00)
[2018-01-19] MEDS ORDERED: ALBUTEROL SO4 2.5/IPRATROPIUM 0.5 INH SOL 3 ML VIAL.NEB. NEB SCH (08:00)
--- NOTE | 2018-01-19 09:24 | PN ---
Progress Note, Physician History of Present Illness: 72 F with hx. of COPD, DM, HTN, HLD autoimmune hepatitis who presents with cough and shortness of breath. States her symptoms began earlier today. Notes she used her nebulizer prior to coming to ED and she has noted some relief. States her cough has been so severe she has soreness in her upper abdomen. Denies any chest pain or pressure. - Current Medication List Current Medications: Active Medications Albuterol Sulfate (Ventolin 0.083% Nebulizer Soln -) 1 amp NEB Q4H PRN PRN Reason: SHORT OF BREATH/WHEEZING Albuterol/Ipratropium (Duoneb -) 1 amp NEB RQID [facility] Last Admin: 01/19/18 08:23 Dose: 1 amp Aspirin (Asa -) 81 mg PO DAILY [facility] Budesonide/Formoterol Fumarate (Symbicort 160/4.5mcg -) 1 puff IH BID [facility] Heparin Sodium (Porcine) (Heparin -) 5,000 unit SQ TID [facility] Last Admin: 01/19/18 06:48 Dose: 5,000 unit Hydrochlorothiazide (Hctz -) 25 mg PO DAILY [facility] Insulin Aspart (Novolog Vial Sliding Scale -) 1 vial SQ ACHS [facility] PRN Reason: Protocol Last Admin: 01/19/18 06:47 Dose: 10 units Lisinopril (Prinivil) 20 mg PO DAILY [facility] Methylprednisolone Sodium Succinate (Solu-Medrol -) 60 mg IVPUSH BID [facility] Pantoprazole Sodium (Protonix -) 20 mg PO DAILY [facility] - Objective Vital Signs: Vital Signs Temperature 98.3 F 01/19/18 08:46 Pulse Rate 77 01/19/18 08:46 Respiratory Rate 16 01/19/18 08:46 Blood Pressure 171/87 01/19/18 08:46 O2 Sat by Pulse Oximetry (%) 97 01/19/18 08:46 Cardiovascular: Yes: Regular Rate and Rhythm Respiratory: Yes: Diminished, Rhonchi, Wheezes Gastrointestinal: Yes: Normal Bowel Sounds, Soft Labs: CBC, BMP 01/18/18 17:07 01/18/18 17:07 INR, PTT INR 0.96 (0.82-1.09) 01/19/18 01:19 Problem List - Problems (1) COPD (chronic obstructive pulmonary disease) Assessment/Plan: -IV STEROIDS -NEBS -PULM CONSULT -IV ABX Code(s): J44.9 - CHRONIC OBSTRUCTIVE PULMONARY DISEASE, UNSPECIFIED (2) Diabetes Assessment/Plan: -INSULIN -BGM Code(s): E11.9 - TYPE 2 DIABETES MELLITUS WITHOUT COMPLICATIONS Qualifiers: Diabetes mellitus type: type 2 (3) HLD (hyperlipidemia) Assessment/Plan: -CHECK LIPIDS Code(s): E78.5 - HYPERLIPIDEMIA, UNSPECIFIED (4) HTN (hypertension) Assessment/Plan: MONITOR ON CURRENT MEDS Code(s): I10 - ESSENTIAL (PRIMARY) HYPERTENSION (5) Troponin level elevated Assessment/Plan: -MAYBE DEMAND -FOLLOW TRENDS -TELE -CARDIO Code(s): R74.8 - ABNORMAL LEVELS OF OTHER SERUM ENZYMES
[2018-01-19] MEDS ORDERED: BUDESONIDE/FORMETEROL FUMARATE 160/4.5 mcg INHALER IH SCH (10:00)
[2018-01-19] MEDS ORDERED: methylPREDNISolone NA SUCC 125 MG/2 ML VIAL IVPUSH SCH ×2 (10:00→15:00)
[2018-01-19] MEDS ORDERED: ASPIRIN 81 MG CHEWABLE TABLETS PO SCH (10:00)
[2018-01-19] MEDS ORDERED: PANTOPRAZOLE 20 MG TABLET (FP) PO SCH (10:00)
[2018-01-19] MEDS ORDERED: HYDROCHLOROTHIAZIDE 25 MG TABLET (FP) PO SCH (10:00)
[2018-01-19] MEDS ORDERED: LISINOPRIL 20 MG TABLET (FP) PO SCH (10:00)
[2018-01-19 10:36] LABS: BASO % 0.3 % (0-2.0); HEMATOCRIT 40.7 % (32.4-45.2); HEMOGLOBIN 13.9 GM/dL (10.7-15.3); LYMPH % 7.8 % (8-40); MCH 31.4 pg (25.7-33.7); MEAN CELL VOLUME 92.3 fl (80-96); MEAN PLT VOLUME 6.9 fl (7.5-11.1); MONO % 4.7 % (3.8-10.2); NEUT % 87.2 % (42.8-82.8); PLATELET COUNT 220 K/MM3 (134-434); RBC 4.41 M/mm3 (3.60-5.2); RDW 14.9 % (11.6-15.6); WHITE BLOOD COUNT 12.2 K/mm3 (4.0-10.0)
[2018-01-19 10:53] LABS: ALBUMIN 2.9 g/dl (3.4-5.0); ANION GAP 8 (8-16); BILIRUBIN,TOTAL 0.4 mg/dL (0.2-1.0); BLOOD UREA NITROGEN 25 mg/dL (7-18); CALCIUM 8.7 mg/dL (8.5-10.1); CHLORIDE 95 mmol/L (98-107); CO2 28 mmol/L (21-32); CREATININE 1.1 mg/dL (0.55-1.02); POTASSIUM 4.6 mmol/L (3.5-5.1); SGOT/AST 26 U/L (15-37); SGPT/ALT 27 U/L (12-78); SODIUM 131 mmol/L (136-145); TOT PROT 6.3 g/dl (6.4-8.2)
[2018-01-19 10:55] LABS: ALK PHOS 96 U/L (45-117)
[2018-01-19] MEDS: CEFTRIAXONE 1 GM in DEXTROSE 5%-WATER - 50 ML IVPB SCH (11:54)
[2018-01-19] MEDS: INSULIN SLIDING SCALE (NOVOLOG) 1 VIAL SQ SCH ×3 (12:30→21:40)
[2018-01-19 12:31] LABS: GLUCOSE,RANDOM 448 mg/dL (74-106)
[2018-01-19 12:50] LABS: CHOLESTEROL 189 mg/dL (50-200); HDL CHOLESTEROL 94 mg/dL (40-60); LDL CHOLESTEROL (ONLY SJRH) 86 mg/dL (5-100); TRIGLYCERIDES 90 mg/dL (35-160)
--- NOTE | 2018-01-19 13:40 | EKG ---
Test Reason : Blood Pressure : / mmHG Vent. Rate : 083 BPM Atrial Rate : 083 BPM P-R Int : 172 ms QRS Dur : 084 ms QT Int : 380 ms P-R-T Axes : 015 -40 239 degrees QTc Int : 446 ms SINUS RHYTHM WITH MARKED SINUS ARRHYTHMIA LEFT AXIS DEVIATION MINIMAL VOLTAGE CRITERIA FOR LVH, MAY BE NORMAL VARIANT ABNORMAL ECG WHEN COMPARED WITH ECG OF 17-NOV-2017 21:28, T WAVE INVERSION NOW EVIDENT IN INFERIOR LEADS Confirmed by ANNI DALEY, PAULINA ([id number]) on 01/19/2018 1:39:59 PM Referred By: Confirmed By:PAULINA HUTTON MD
--- NOTE | 2018-01-19 15:26 | CON.CARD ---
Consult Consult Specialty:: Cardiology Reason for Consultation:: Positive troponin - History of Present Illness Chief Complaint: Coughing History of Present Illness: This is 72 year old female with a PMH of COPD, diabetes, HTN, and hyperlipidemia. She was being treated as an outpatient for a COPD exacerbation. She presented to the ED with a persistent cough and tello. She gets some relief from nebulizer treatments. Troponin I 0.09 EKG NSR at 83 with APC's and sinus arrhythmia. LVH with strain is noted. - Past Medical History Cardio/Vascular: Yes: HTN, Hyperlipdemia Pulmonary: Yes: COPD Endocrine: Yes: Diabetes Mellitus - Past Surgical History Past Surgical History: Yes: Hernia Repair (Umbilical) - Alcohol/Substance Use Hx Alcohol Use: No History of Substance Use: reports: None - Smoking History Smoking history: Never smoked Have you smoked in the past 12 months: No If you are a former smoker, when did you quit?: 5 years ago - Social History ADL: Independent (ambulates with walker) Occupation: retired History of Recent Travel: No Home Medications - Allergies Allergies/Adverse Reactions: Allergies Allergy/AdvReac Type Severity Reaction Status Date / Time No Known Allergies Allergy Verified 01/18/18 16:33 - Home Medications Home Medications: Ambulatory Orders Budesonide/Formeterol Fumarate [SYMBICORT 160/4.5mcg -] 1 puff IH BID #1 inhaler 11/24/17 Pantoprazole Sodium [Protonix -] 20 mg PO DAILY #30 tablet.ec 11/24/17 predniSONE [Deltasone -] 60 mg PO DAILY #90 tablet 11/24/17 Aspirin [ASA -] 81 mg PO DAILY 01/19/18 Atorvastatin Ca [Lipitor] 40 mg PO HS 01/19/18 Donepezil HCl 5 mg PO DAILY 01/19/18 Hydrochlorothiazide [Hctz -] 25 mg PO DAILY 01/19/18 Lisinopril 20 mg PO DAILY 01/19/18 Family Disease History - Family Disease History Family Disease History: Diabetes: Grandparent (Breast), Heart Disease: Grandparent, CA: Grandparent, Mother (Breast), Other: Daughter (L- Breast Nodules , 2nd Daughter- Hypothyroid) Review of Systems Findings/Remarks: As per HPI Vital Signs: Vital Signs Temperature 98 F 01/19/18 13:59 Pulse Rate 75 01/19/18 13:59 Respiratory Rate 20 01/19/18 14:12 Blood Pressure 160/85 01/19/18 13:59 O2 Sat by Pulse Oximetry (%) 96 01/19/18 14:12 Constitutional: Yes: No Distress Eyes: Yes: WNL HENT: Yes: WNL Neck: Yes: WNL Respiratory: Yes: Other (Diffuse bilateral crackles) Gastrointestinal: Yes: Soft Cardiovascular: Yes: Regular Rate and Rhythm Heart Sounds: Yes: S1, S2 (No MRHG) Edema: LLE: Trace, RLE: Trace Neurological: Yes: Alert, Oriented (Non focal) - Other Data Labs, Other Data: CBC, BMP 01/19/18 10:20 01/19/18 10:20 INR, PTT INR 0.96 (0.82-1.09) 01/19/18 01:19 Troponin, BNP 01/19/18 01/19/18 04:57 10:20 Troponin I 0.09 H 0.09 H Troponin, BNP 01/19/18 01/19/18 04:57 10:20 Troponin I 0.09 H 0.09 H Assessment/Plan Positive Tropon Level: Troponin I 0.09 Most likely demand ischemia exacerbated by COPD and Beta agonist treatment Would obtain a BNP level Obtain an echocardiogram Continue ASA 81 mg daily Continue HCTZ but would change to Lasix if the BNP is elevated
[2018-01-19] MEDS: methylPREDNISolone NA SUCC 125 MG/2 ML VIAL IVPUSH SCH ×2 (16:10→21:35)
[2018-01-19] MEDS: HEPARIN NA (PORCINE) 5,000 UNITS/ML 1ML VIAL SQ SCH ×2 (16:10→21:35)
[2018-01-19] MEDS: PANTOPRAZOLE 40 MG TABLET (FP) PO SCH ×2 (16:11→21:35)
[2018-01-19] MEDS: NITROGLYCERIN 2% OINTMENT - 1GM PACKET TD SCH ×2 (16:11→18:00)
[2018-01-19] MEDS: ALBUTEROL SO4 2.5/IPRATROPIUM 0.5 INH SOL 3 ML VIAL.NEB. NEB SCH ×2 (16:30→20:25)
[2018-01-19] MEDS ORDERED: PT OWN MED DRAWER 7, Y5N ONE (21:27)
[2018-01-20] MEDS: BUDESONIDE/FORMETEROL FUMARATE 160/4.5 mcg INHALER IH SCH ×3 (00:20→21:40)
[2018-01-20] MEDS: NITROGLYCERIN 2% OINTMENT - 1GM PACKET TD SCH ×4 (00:20→18:38)
[2018-01-20] MEDS: methylPREDNISolone NA SUCC 125 MG/2 ML VIAL IVPUSH SCH ×4 (03:44→21:36)
[2018-01-20] MEDS: HEPARIN NA (PORCINE) 5,000 UNITS/ML 1ML VIAL SQ SCH ×3 (05:42→21:37)
[2018-01-20] MEDS: INSULIN SLIDING SCALE (NOVOLOG) 1 VIAL SQ SCH ×3 (06:07→17:54)
[2018-01-20 06:34] LABS: HEMATOCRIT 41.2 % (32.4-45.2); HEMOGLOBIN 14.1 GM/dL (10.7-15.3); MCHC 34.2 g/dl (32.0-36.0); MEAN CELL VOLUME 93.5 fl (80-96); MEAN PLT VOLUME 7.1 fl (7.5-11.1); PLATELET COUNT 228 K/MM3 (134-434); RBC 4.41 M/mm3 (3.60-5.2); RDW 15.1 % (11.6-15.6)
[2018-01-20 07:00] LABS: ANION GAP 10 (8-16); BLOOD UREA NITROGEN 23 mg/dL (7-18); CALCIUM 9.3 mg/dL (8.5-10.1); CHLORIDE 94 mmol/L (98-107); CO2 30 mmol/L (21-32); GLUCOSE,RANDOM 274 mg/dL (74-106); POTASSIUM 4.7 mmol/L (3.5-5.1); SODIUM 134 mmol/L (136-145)
[2018-01-20] MEDS: ALBUTEROL SO4 2.5/IPRATROPIUM 0.5 INH SOL 3 ML VIAL.NEB. NEB SCH ×4 (07:35→20:00)
[2018-01-20] MEDS ORDERED: PT OWN MED DRAWER 7, Y5N ONE ×4 (09:17→21:46)
[2018-01-20] MEDS ORDERED: cefTRIAXone SODIUM 1 GM VIAL ONE (09:17)
[2018-01-20] MEDS ORDERED: DEXTROSE 5%-WATER - 50 ML IVPB ONE (09:18)
[2018-01-20] MEDS: CEFTRIAXONE 1 GM in DEXTROSE 5%-WATER - 50 ML IVPB SCH (09:20)
[2018-01-20] MEDS: LISINOPRIL 20 MG TABLET (FP) PO SCH (09:27)
[2018-01-20] MEDS: ASPIRIN 81 MG CHEWABLE TABLETS PO SCH (09:27)
[2018-01-20] MEDS: PANTOPRAZOLE 40 MG TABLET (FP) PO SCH ×2 (09:27→21:37)
[2018-01-20] MEDS: HYDROCHLOROTHIAZIDE 25 MG TABLET (FP) PO SCH (09:27)
--- NOTE | 2018-01-20 11:24 | PN ---
Progress Note, Physician Chief Complaint: AWAKE ALERT MILD DISTRESS NOTES REVIEWED - Current Medication List Current Medications: Active Medications Albuterol Sulfate (Ventolin 0.083% Nebulizer Soln -) 1 amp NEB Q4H PRN PRN Reason: SHORT OF BREATH/WHEEZING Albuterol/Ipratropium (Duoneb -) 1 amp NEB RQID [facility] Last Admin: 01/20/18 07:35 Dose: 1 amp Aspirin (Asa -) 81 mg PO DAILY [facility] Last Admin: 01/20/18 09:27 Dose: 81 mg Budesonide/Formoterol Fumarate (Symbicort 160/4.5mcg -) 1 puff IH BID [facility] Last Admin: 01/20/18 09:27 Dose: 1 puff Heparin Sodium (Porcine) (Heparin -) 5,000 unit SQ TID [facility] Last Admin: 01/20/18 05:42 Dose: 5,000 unit Hydrochlorothiazide (Hctz -) 25 mg PO DAILY [facility] Last Admin: 01/20/18 09:27 Dose: 25 mg Ceftriaxone Sodium 1 gm/ (Dextrose) 50 mls @ 100 mls/hr IVPB DAILY [facility] Last Admin: 01/20/18 09:20 Dose: 100 mls/hr Insulin Aspart (Novolog Vial Sliding Scale -) 1 vial SQ ACHS [facility] PRN Reason: Protocol Last Admin: 01/20/18 06:07 Dose: 6 unit Lisinopril (Prinivil) 20 mg PO DAILY [facility] Last Admin: 01/20/18 09:27 Dose: 20 mg Methylprednisolone Sodium Succinate (Solu-Medrol -) 60 mg IVPUSH Q6H-IV [facility] Last Admin: 01/20/18 09:21 Dose: 60 mg Nitroglycerin (Nitro-Bid 2% Paste -) 1 inch TD Q6HPO [facility] Last Admin: 01/20/18 05:42 Dose: 1 inch Pantoprazole Sodium (Protonix -) 40 mg PO BID [facility] Last Admin: 01/20/18 09:27 Dose: 40 mg - Objective Vital Signs: Vital Signs Temperature 98.3 F 01/20/18 10:00 Pulse Rate 100 H 01/20/18 10:00 Respiratory Rate 18 01/20/18 10:00 Blood Pressure 162/94 01/20/18 10:00 O2 Sat by Pulse Oximetry (%) 94 L 01/20/18 09:00 Constitutional: Yes: Mild Distress Eyes: Yes: WNL HENT: Yes: WNL Neck: Yes: WNL Cardiovascular: Yes: WNL Respiratory: Yes: Wheezes Gastrointestinal: Yes: WNL Genitourinary: Yes: WNL Musculoskeletal: Yes: WNL Extremities: Yes: WNL Edema: Yes Edema: LLE: Trace, RLE: Trace Peripheral Pulses WNL: Yes Integumentary: Yes: WNL Wound/Incision: Yes: Clean/Dry Neurological: Yes: WNL ...Motor Strength: WNL Psychiatric: Yes: WNL Labs: CBC, BMP 01/20/18 05:35 01/20/18 05:35 INR, PTT INR 0.96 (0.82-1.09) 01/19/18 01:19 Problem List - Problems (1) COPD (chronic obstructive pulmonary disease) Code(s): J44.9 - CHRONIC OBSTRUCTIVE PULMONARY DISEASE, UNSPECIFIED (2) Cough Code(s): R05 - COUGH (3) Troponin level elevated Code(s): R74.8 - ABNORMAL LEVELS OF OTHER SERUM ENZYMES (4) Autoimmune hepatitis Code(s): K75.4 - AUTOIMMUNE HEPATITIS (5) Diabetes Code(s): E11.9 - TYPE 2 DIABETES MELLITUS WITHOUT COMPLICATIONS Qualifiers: Diabetes mellitus type: type 2 (6) HTN (hypertension) Code(s): I10 - ESSENTIAL (PRIMARY) HYPERTENSION Assessment/Plan IV STEROIDS NEBS 02 SUPPORT PULM EVAL TELE NO ALARMS OOB TO CHAIR DVT PROPHYLAXIS
[2018-01-20] MEDS: POLYETHYLENE GLYCOL 3350 119 GM BTL PO SCH (12:00)
[2018-01-20] MEDS ORDERED: MAGNESIUM HYDROX 2400MG/30ML ORAL SUSPENSION 30 ML CUP PO PRN (12:05)
--- NOTE | 2018-01-20 14:58 | CON.PULM ---
Consult Consult Specialty:: PULM/CCM Referred by:: DAVDI Reason for Consultation:: SOB - History of Present Illness Chief Complaint: SOB History of Present Illness: 72 F, significant smoking history from the age of 15 until about 10 years ago with resultant COPD. 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 Additional history of DM, HTN, HPL, and recent diagnosis of autoimmune hepatitis. Admitted due to progressive congested cough, SOB, and BURROUGHS. No travel history or sick contacts. No hemoptysis, night sweats, or unexplained weight loss. No overt history consistent with OSAS. CXR: no acute pathology. - History Source History Provided By: Patient Limitations to Obtaining History: No Limitations - Past Medical History Cardio/Vascular: Yes: HTN, Hyperlipdemia Pulmonary: Yes: COPD, Other (TB) Endocrine: Yes: Diabetes Mellitus - Past Surgical History Past Surgical History: Yes: Hernia Repair (Umbilical) - Alcohol/Substance Use Hx Alcohol Use: No History of Substance Use: reports: None - Smoking History Smoking history: Never smoked Have you smoked in the past 12 months: No If you are a former smoker, when did you quit?: 5 years ago - Social History ADL: Independent (ambulates with walker) Occupation: retired History of Recent Travel: No Home Medications - Allergies Allergies/Adverse Reactions: Allergies Allergy/AdvReac Type Severity Reaction Status Date / Time No Known Allergies Allergy Verified 01/18/18 16:33 - Home Medications Home Medications: Ambulatory Orders Budesonide/Formeterol Fumarate [SYMBICORT 160/4.5mcg -] 1 puff IH BID #1 inhaler 11/24/17 Pantoprazole Sodium [Protonix -] 20 mg PO DAILY #30 tablet.ec 11/24/17 predniSONE [Deltasone -] 60 mg PO DAILY #90 tablet 11/24/17 Aspirin [ASA -] 81 mg PO DAILY 01/19/18 Atorvastatin Ca [Lipitor] 40 mg PO HS 01/19/18 Donepezil HCl 5 mg PO DAILY 01/19/18 Hydrochlorothiazide [Hctz -] 25 mg PO DAILY 01/19/18 Lisinopril 20 mg PO DAILY 01/19/18 Family Disease History - Family Disease History Family Disease History: Diabetes: Grandparent (Breast), Heart Disease: Grandparent, CA: Grandparent, Mother (Breast), Other: Daughter (L- Breast Nodules , 2nd Daughter- Hypothyroid) Review of Systems - Review of Systems Constitutional: reports: Malaise. denies: Chills, Fever, Night Sweats, Weakness Eyes: reports: No Symptoms HENT: reports: No Symptoms Neck: reports: No Symptoms Cardiovascular: reports: Shortness of Breath. denies: Chest Pain, Edema, Palpitations Respiratory: reports: Cough, SOB, SOB on Exertion, Wheezing. denies: Hemoptysis , Snoring Gastrointestinal: reports: No Symptoms Genitourinary: reports: No Symptoms Breasts: reports: No Symptoms Reported Musculoskeletal: reports: No Symptoms Integumentary: reports: No Symptoms Neurological: reports: No Symptoms Endocrine: reports: No Symptoms Hematology/Lymphatic: reports: No Symptoms Psychiatric: reports: No Symptoms Physical Exam Vital Sings: Vital Signs Temperature 98.3 F 01/20/18 10:00 Pulse Rate 100 H 01/20/18 10:00 Respiratory Rate 18 01/20/18 10:00 Blood Pressure 162/94 01/20/18 10:00 O2 Sat by Pulse Oximetry (%) 94 L 01/20/18 09:00 Constitutional: Yes: No Distress, Calm, Obese Eyes: Yes: Conjunctiva Clear, EOM Intact HENT: Yes: Atraumatic, Normocephalic Neck: Yes: Supple, Trachea Midline Cardiovascular: Yes: Regular Rate and Rhythm Respiratory: Yes: Cough, Diminished, Rhonchi, Wheezes. No: Accessory Muscle Use , Rales, Stridor, Tachypnea ...Inspection: Yes: WNL ...Clubbing: No Gastrointestinal: Yes: Normal Bowel Sounds, Soft, Abdomen, Obese Renal/: Yes: WNL Musculoskeletal: Yes: WNL Extremities: Yes: WNL Edema: No Peripheral Pulses WNL: Yes Integumentary: Yes: WNL Neurological: Yes: WNL, Alert, Oriented ...Motor Strength: WNL Psychiatric: Yes: WNL, Alert, Oriented Labs: CBC, BMP 01/20/18 05:35 01/20/18 05:35 Imaging - Results Chest X-ray: Report Reviewed, Image Reviewed Problem List - Problems (1) History of TB (tuberculosis) Code(s): Z86.11 - PERSONAL HISTORY OF TUBERCULOSIS (2) COPD (chronic obstructive pulmonary disease) Code(s): J44.9 - CHRONIC OBSTRUCTIVE PULMONARY DISEASE, UNSPECIFIED (3) Cough Code(s): R05 - COUGH (4) Autoimmune hepatitis Code(s): K75.4 - AUTOIMMUNE HEPATITIS (5) Diabetes Code(s): E11.9 - TYPE 2 DIABETES MELLITUS WITHOUT COMPLICATIONS Qualifiers: Diabetes mellitus type: type 2 (6) HLD (hyperlipidemia) Code(s): E78.5 - HYPERLIPIDEMIA, UNSPECIFIED (7) HTN (hypertension) Code(s): I10 - ESSENTIAL (PRIMARY) HYPERTENSION (8) Transaminitis Code(s): R74.0 - NONSPEC ELEV OF LEVELS OF TRANSAMNS & LACTIC ACID DEHYDRGNSE Assessment/Plan Medrol BD TX CT Chest O2 as needed No smoking Will need outpatient PFTs Noted ABX: low threshold to D/C Check urine and sputum Will follow Dr Martinez
--- NOTE | 2018-01-20 15:16 | PN ---
Progress Note, Physician Chief Complaint: Clinically improved History of Present Illness: This is 72 year old female with a PMH of COPD, diabetes, HTN, and hyperlipidemia. She was being treated as an outpatient for a COPD exacerbation. She presented to the ED with a persistent cough and tello. She gets some relief from nebulizer treatments. Troponin I 0.09 EKG NSR at 83 with APC's and sinus arrhythmia. LVH with strain is noted. 01/20/18 Significantly improved respiratory-boyce. - Current Medication List Current Medications: Active Medications Albuterol Sulfate (Ventolin 0.083% Nebulizer Soln -) 1 amp NEB Q4H PRN PRN Reason: SHORT OF BREATH/WHEEZING Albuterol/Ipratropium (Duoneb -) 1 amp NEB RQID [facility] Last Admin: 01/20/18 11:30 Dose: 1 amp Aspirin (Asa -) 81 mg PO DAILY [facility] Last Admin: 01/20/18 09:27 Dose: 81 mg Budesonide/Formoterol Fumarate (Symbicort 160/4.5mcg -) 2 puff IH BID [facility] Heparin Sodium (Porcine) (Heparin -) 5,000 unit SQ TID [facility] Last Admin: 01/20/18 13:12 Dose: 5,000 unit Hydrochlorothiazide (Hctz -) 25 mg PO DAILY [facility] Last Admin: 01/20/18 09:27 Dose: 25 mg Ceftriaxone Sodium 1 gm/ (Dextrose) 50 mls @ 100 mls/hr IVPB DAILY [facility] Last Admin: 01/20/18 09:20 Dose: 100 mls/hr Insulin Aspart (Novolog Vial Sliding Scale -) 1 vial SQ ACHS [facility] PRN Reason: Protocol Last Admin: 01/20/18 12:00 Dose: 8 unit Lisinopril (Prinivil) 20 mg PO DAILY [facility] Last Admin: 01/20/18 09:27 Dose: 20 mg Magnesium Hydroxide (Milk Of Magnesia -) 30 ml PO PRN PRN PRN Reason: CONSTIPATION Methylprednisolone Sodium Succinate (Solu-Medrol -) 60 mg IVPUSH Q6H-IV [facility] Last Admin: 01/20/18 14:40 Dose: 60 mg Nitroglycerin (Nitro-Bid 2% Paste -) 1 inch TD Q6HPO [facility] Last Admin: 01/20/18 13:12 Dose: 1 inch Pantoprazole Sodium (Protonix -) 40 mg PO BID [facility] Last Admin: 01/20/18 09:27 Dose: 40 mg Polyethylene Glycol (Miralax (For Daily Use) -) 17 gm PO DAILY [facility] Last Admin: 01/20/18 12:00 Dose: 17 gm - Objective Vital Signs: Vital Signs Temperature 99.7 F H 01/20/18 13:00 Pulse Rate 86 01/20/18 13:00 Respiratory Rate 14 01/20/18 13:00 Blood Pressure 143/80 01/20/18 13:00 O2 Sat by Pulse Oximetry (%) 94 L 01/20/18 09:00 Constitutional: Yes: No Distress Eyes: Yes: WNL HENT: Yes: WNL Neck: Yes: WNL Cardiovascular: Yes: Regular Rate and Rhythm, S1, S2 (No MRHG) Respiratory: Yes: Rhonchi (Minimal scattered rhonchi) Gastrointestinal: Yes: Soft Edema: Yes Edema: LLE: Trace, RLE: Trace Neurological: Yes: Alert, Oriented (Non focal) Labs: CBC, BMP 01/20/18 05:35 01/20/18 05:35 INR, PTT INR 0.96 (0.82-1.09) 01/19/18 01:19 Assessment/Plan Positive Tropon Level: Troponin I 0.09 minimal elevation Most likely demand ischemia exacerbated by COPD and Beta agonist treatment Continue ASA 81 mg daily Continue HCTZ
[2018-01-20] MEDS ORDERED: INSULIN (NOVOLOG) ASPART 100 UNITS/ML 10ML VIAL SQ ONE (21:15)
[2018-01-20] MEDS ORDERED: INSULIN SLIDING SCALE (NOVOLOG) 1 VIAL SQ SCH ×2 (21:30→21:34)
[2018-01-20] MEDS: INSULIN DETEMIR 100 UNITS/ML MDV SQ SCH (21:39)
[2018-01-21] MEDS: NITROGLYCERIN 2% OINTMENT - 1GM PACKET TD SCH ×4 (00:56→17:17)
[2018-01-21] MEDS: INSULIN SLIDING SCALE (NOVOLOG) 1 VIAL SQ SCH ×6 (01:00→21:12)
[2018-01-21] MEDS: methylPREDNISolone NA SUCC 125 MG/2 ML VIAL IVPUSH SCH ×2 (03:07→09:32)
[2018-01-21] MEDS: INSULIN DETEMIR 100 UNITS/ML MDV SQ SCH (06:31)
[2018-01-21] MEDS: HEPARIN NA (PORCINE) 5,000 UNITS/ML 1ML VIAL SQ SCH ×3 (06:31→21:13)
[2018-01-21] MEDS: ALBUTEROL SO4 2.5/IPRATROPIUM 0.5 INH SOL 3 ML VIAL.NEB. NEB SCH ×4 (07:30→20:50)
[2018-01-21] MEDS ORDERED: DEXTROSE 5%-WATER - 50 ML IVPB ONE (09:18)
[2018-01-21] MEDS ORDERED: cefTRIAXone SODIUM 1 GM VIAL ONE (09:18)
[2018-01-21] MEDS ORDERED: PT OWN MED DRAWER 7, Y5N ONE ×3 (09:18→21:03)
[2018-01-21] MEDS: ASPIRIN 81 MG CHEWABLE TABLETS PO SCH (09:33)
[2018-01-21] MEDS: BUDESONIDE/FORMETEROL FUMARATE 160/4.5 mcg INHALER IH SCH ×2 (09:33→21:14)
[2018-01-21] MEDS: LISINOPRIL 20 MG TABLET (FP) PO SCH (09:33)
[2018-01-21] MEDS: HYDROCHLOROTHIAZIDE 25 MG TABLET (FP) PO SCH (09:33)
[2018-01-21] MEDS: PANTOPRAZOLE 40 MG TABLET (FP) PO SCH ×2 (09:33→21:14)
[2018-01-21] MEDS: CEFTRIAXONE 1 GM in DEXTROSE 5%-WATER - 50 ML IVPB SCH (09:33)
[2018-01-21] MEDS ORDERED: INSULIN (NOVOLOG) ASPART 100 UNITS/ML 10ML VIAL ONE ×2 (10:31→21:11)
[2018-01-21] MEDS: POLYETHYLENE GLYCOL 3350 119 GM BTL PO SCH (10:33)
--- NOTE | 2018-01-21 12:17 | PN ---
Progress Note, Physician Chief Complaint: AWAKE EATING LUNCH STILL C/O RESP DIFFICULTY NO FEVER - Current Medication List Current Medications: Active Medications Albuterol Sulfate (Ventolin 0.083% Nebulizer Soln -) 1 amp NEB Q4H PRN PRN Reason: SHORT OF BREATH/WHEEZING Albuterol/Ipratropium (Duoneb -) 1 amp NEB RQID [facility] Last Admin: 01/21/18 07:30 Dose: 1 amp Aspirin (Asa -) 81 mg PO DAILY [facility] Last Admin: 01/21/18 09:33 Dose: 81 mg Budesonide/Formoterol Fumarate (Symbicort 160/4.5mcg -) 2 puff IH BID [facility] Last Admin: 01/21/18 09:33 Dose: 2 puff Heparin Sodium (Porcine) (Heparin -) 5,000 unit SQ TID [facility] Last Admin: 01/21/18 06:31 Dose: 5,000 unit Hydrochlorothiazide (Hctz -) 25 mg PO DAILY [facility] Last Admin: 01/21/18 09:33 Dose: 25 mg Ceftriaxone Sodium 1 gm/ (Dextrose) 50 mls @ 100 mls/hr IVPB DAILY [facility] Last Admin: 01/21/18 09:33 Dose: 100 mls/hr Insulin Aspart (Novolog Vial Sliding Scale -) 1 vial SQ Q4HPO [facility] PRN Reason: Protocol Last Admin: 01/21/18 10:31 Dose: 5 units Insulin Detemir (Levemir Vial) 30 units SQ BID@0700,2200 [facility] Last Admin: 01/21/18 06:31 Dose: 30 units Lisinopril (Prinivil) 20 mg PO DAILY [facility] Last Admin: 01/21/18 09:33 Dose: 20 mg Magnesium Hydroxide (Milk Of Magnesia -) 30 ml PO PRN PRN PRN Reason: CONSTIPATION Methylprednisolone Sodium Succinate (Solu-Medrol -) 60 mg IVPUSH Q6H-IV [facility] Last Admin: 01/21/18 09:32 Dose: 60 mg Nitroglycerin (Nitro-Bid 2% Paste -) 1 inch TD Q6HPO [facility] Last Admin: 01/21/18 11:10 Dose: 1 inch Pantoprazole Sodium (Protonix -) 40 mg PO BID [facility] Last Admin: 01/21/18 09:33 Dose: 40 mg Polyethylene Glycol (Miralax (For Daily Use) -) 17 gm PO DAILY [facility] Last Admin: 01/21/18 10:33 Dose: 17 gm - Objective Vital Signs: Vital Signs Temperature 97.4 F L 01/21/18 05:38 Pulse Rate 73 01/21/18 05:38 Respiratory Rate 18 01/21/18 05:38 Blood Pressure 140/85 01/21/18 05:38 O2 Sat by Pulse Oximetry (%) 97 01/20/18 21:00 Constitutional: Yes: Mild Distress Eyes: Yes: WNL HENT: Yes: WNL Neck: Yes: WNL Cardiovascular: Yes: WNL Respiratory: Yes: On Nasal O2, Rhonchi Gastrointestinal: Yes: WNL Genitourinary: Yes: WNL Musculoskeletal: Yes: WNL Extremities: Yes: WNL Edema: No Peripheral Pulses WNL: Yes Integumentary: Yes: WNL Wound/Incision: Yes: Clean/Dry Neurological: Yes: WNL ...Motor Strength: WNL Psychiatric: Yes: WNL Labs: CBC, BMP 01/20/18 05:35 01/20/18 05:35 INR, PTT INR 0.96 (0.82-1.09) 01/19/18 01:19 Problem List - Problems (1) COPD (chronic obstructive pulmonary disease) Code(s): J44.9 - CHRONIC OBSTRUCTIVE PULMONARY DISEASE, UNSPECIFIED (2) Cough Code(s): R05 - COUGH (3) Troponin level elevated Code(s): R74.8 - ABNORMAL LEVELS OF OTHER SERUM ENZYMES (4) Autoimmune hepatitis Code(s): K75.4 - AUTOIMMUNE HEPATITIS (5) Diabetes Code(s): E11.9 - TYPE 2 DIABETES MELLITUS WITHOUT COMPLICATIONS Qualifiers: Diabetes mellitus type: type 2 (6) HTN (hypertension) Code(s): I10 - ESSENTIAL (PRIMARY) HYPERTENSION Assessment/Plan CONTINUE 1 MORE DAY OF STEROIDS IV NEBS 02 SUPPORT IV ABX DVT PROPHYLAXIS PULM/CARDIO EVAL APPRECIATED
--- NOTE | 2018-01-21 13:06 | PN ---
Progress Note, Physician History of Present Illness: PULMONARY ALERT,LESS CONGESTED,+COUGH - Current Medication List Current Medications: Active Medications Albuterol Sulfate (Ventolin 0.083% Nebulizer Soln -) 1 amp NEB Q4H PRN PRN Reason: SHORT OF BREATH/WHEEZING Albuterol/Ipratropium (Duoneb -) 1 amp NEB RQID [facility] Last Admin: 01/21/18 07:30 Dose: 1 amp Aspirin (Asa -) 81 mg PO DAILY [facility] Last Admin: 01/21/18 09:33 Dose: 81 mg Budesonide/Formoterol Fumarate (Symbicort 160/4.5mcg -) 2 puff IH BID [facility] Last Admin: 01/21/18 09:33 Dose: 2 puff Heparin Sodium (Porcine) (Heparin -) 5,000 unit SQ TID [facility] Last Admin: 01/21/18 06:31 Dose: 5,000 unit Hydrochlorothiazide (Hctz -) 25 mg PO DAILY [facility] Last Admin: 01/21/18 09:33 Dose: 25 mg Ceftriaxone Sodium 1 gm/ (Dextrose) 50 mls @ 100 mls/hr IVPB DAILY [facility] Last Admin: 01/21/18 09:33 Dose: 100 mls/hr Insulin Aspart (Novolog Vial Sliding Scale -) 1 vial SQ Q4HPO [facility] PRN Reason: Protocol Last Admin: 01/21/18 10:31 Dose: 5 units Insulin Detemir (Levemir Vial) 30 units SQ BID@0700,2200 [facility] Last Admin: 01/21/18 06:31 Dose: 30 units Lisinopril (Prinivil) 20 mg PO DAILY [facility] Last Admin: 01/21/18 09:33 Dose: 20 mg Magnesium Hydroxide (Milk Of Magnesia -) 30 ml PO PRN PRN PRN Reason: CONSTIPATION Methylprednisolone Sodium Succinate (Solu-Medrol -) 60 mg IVPUSH Q6H-IV [facility] Last Admin: 01/21/18 09:32 Dose: 60 mg Nitroglycerin (Nitro-Bid 2% Paste -) 1 inch TD Q6HPO [facility] Last Admin: 01/21/18 11:10 Dose: 1 inch Pantoprazole Sodium (Protonix -) 40 mg PO BID [facility] Last Admin: 01/21/18 09:33 Dose: 40 mg Polyethylene Glycol (Miralax (For Daily Use) -) 17 gm PO DAILY [facility] Last Admin: 01/21/18 10:33 Dose: 17 gm - Objective Vital Signs: Vital Signs Temperature 98.0 F 01/21/18 10:00 Pulse Rate 83 01/21/18 10:00 Respiratory Rate 18 01/21/18 10:00 Blood Pressure 168/93 01/21/18 10:00 O2 Sat by Pulse Oximetry (%) 94 L 01/21/18 09:00 Constitutional: Yes: Well Nourished, Calm Eyes: Yes: WNL HENT: Yes: WNL Neck: Yes: WNL Cardiovascular: Yes: Regular Rate and Rhythm, S1, S2 Respiratory: Yes: Rhonchi (SCATTERED BRENDA WHEEZES AND RHONCHI), Wheezes Gastrointestinal: Yes: Normal Bowel Sounds, Soft Extremities: Yes: WNL Edema: No Labs: CBC, BMP - ....Imaging Cat Scan: Report Reviewed, Image Reviewed (BILALERAL LOWER LOBE INFILTRATES) Problem List - Problems (1) Pneumonia Code(s): J18.9 - PNEUMONIA, UNSPECIFIED ORGANISM Assessment/Plan Problem List - Problems (1) History of TB (tuberculosis) Code(s): Z86.11 - PERSONAL HISTORY OF TUBERCULOSIS (2) COPD (chronic obstructive pulmonary disease) Code(s): J44.9 - CHRONIC OBSTRUCTIVE PULMONARY DISEASE, UNSPECIFIED (3) Cough Code(s): R05 - COUGH (4) Autoimmune hepatitis Code(s): K75.4 - AUTOIMMUNE HEPATITIS (5) Diabetes Code(s): E11.9 - TYPE 2 DIABETES MELLITUS WITHOUT COMPLICATIONS Qualifiers: Diabetes mellitus type: type 2 (6) HLD (hyperlipidemia) Code(s): E78.5 - HYPERLIPIDEMIA, UNSPECIFIED (7) HTN (hypertension) Code(s): I10 - ESSENTIAL (PRIMARY) HYPERTENSION (8) Transaminitis Code(s): R74.0 - NONSPEC ELEV OF LEVELS OF TRANSAMNS & LACTIC ACID DEHYDRGNSE Assessment/Plan Medrol taper BD TX O2 as needed No smoking W outpatient PFTs ABX DR SCOTT
--- NOTE | 2018-01-21 16:30 | CONSULT ---
Consult Consult Specialty:: endocrine Referred by:: dr.iyad mayer Reason for Consultation:: uncontrolled dm - History of Present Illness Chief Complaint: shortness of breath and chest pain with high sugars History of Present Illness: 72 F with hx. of COPD, DM, HTN, HLD autoimmune hepatitis who presents with cough and shortness of breath. States her symptoms began earlier today. Notes she used her nebulizer prior to coming to ED and she has noted some relief. States her cough has been so severe she has soreness in her upper abdomen. has had high sugar despite taking insulin at home higher than 300mg/dl mornings, frequent urination,poor appetite,nausea no vomiting - History Source History Provided By: Patient - Past Medical History Cardio/Vascular: Yes: HTN, Hyperlipdemia Pulmonary: Yes: COPD, Other (TB) Endocrine: Yes: Diabetes Mellitus - Past Surgical History Past Surgical History: Yes: Hernia Repair (Umbilical) - Alcohol/Substance Use Hx Alcohol Use: No History of Substance Use: reports: None - Smoking History Smoking history: Never smoked Have you smoked in the past 12 months: No If you are a former smoker, when did you quit?: 5 years ago - Social History ADL: Independent (ambulates with walker) Occupation: retired History of Recent Travel: No Home Medications - Allergies Allergies/Adverse Reactions: Allergies Allergy/AdvReac Type Severity Reaction Status Date / Time No Known Allergies Allergy Verified 01/18/18 16:33 - Home Medications Home Medications: Ambulatory Orders Budesonide/Formeterol Fumarate [SYMBICORT 160/4.5mcg -] 1 puff IH BID #1 inhaler 11/24/17 Pantoprazole Sodium [Protonix -] 20 mg PO DAILY #30 tablet.ec 11/24/17 predniSONE [Deltasone -] 60 mg PO DAILY #90 tablet 11/24/17 Aspirin [ASA -] 81 mg PO DAILY 01/19/18 Atorvastatin Ca [Lipitor] 40 mg PO HS 01/19/18 Donepezil HCl 5 mg PO DAILY 01/19/18 Hydrochlorothiazide [Hctz -] 25 mg PO DAILY 01/19/18 Lisinopril 20 mg PO DAILY 01/19/18 Family Disease History - Family Disease History Family Disease History: Diabetes: Grandparent (Breast), Heart Disease: Grandparent, CA: Grandparent, Mother (Breast), Other: Daughter (L- Breast Nodules , 2nd Daughter- Hypothyroid) Review of Systems - Review of Systems Constitutional: reports: Lethargy, Weakness Eyes: reports: Blurred Vision HENT: reports: Difficult Swallowing Neck: reports: No Symptoms Cardiovascular: reports: Shortness of Breath Respiratory: reports: Exercise Intolerance, SOB on Exertion Gastrointestinal: reports: Abdominal Pain Genitourinary: reports: No Symptoms Breasts: reports: No Symptoms Reported Musculoskeletal: reports: Back Pain, Extremity Pain Integumentary: reports: No Symptoms Neurological: reports: Numbness, Weakness Endocrine: reports: Unexplained Weight Gain Physical Exam Vital Signs: Vital Signs Temperature 99.1 F 01/21/18 15:40 Pulse Rate 74 01/21/18 15:40 Respiratory Rate 21 01/21/18 15:40 Blood Pressure 137/73 01/21/18 15:40 O2 Sat by Pulse Oximetry (%) 94 L 01/21/18 09:00 Constitutional: Yes: Anxious Eyes: Yes: EOM Intact HENT: Yes: Normocephalic Neck: Yes: Trachea Midline Cardiovascular: Yes: Regular Rate and Rhythm Respiratory: Yes: Rhonchi, SOB, Tachypnea Gastrointestinal: Yes: Normal Bowel Sounds, Tenderness, Epigastrium ...Rectal Exam: Yes: Deferred Renal/: Yes: WNL Breast(s): Yes: WNL Musculoskeletal: Yes: WNL Integumentary: Yes: WNL Labs: CBC, BMP 01/20/18 05:35 01/20/18 05:35 Problem List - Problems (1) COPD (chronic obstructive pulmonary disease) Code(s): J44.9 - CHRONIC OBSTRUCTIVE PULMONARY DISEASE, UNSPECIFIED (2) History of TB (tuberculosis) Code(s): Z86.11 - PERSONAL HISTORY OF TUBERCULOSIS (3) Troponin level elevated Code(s): R74.8 - ABNORMAL LEVELS OF OTHER SERUM ENZYMES (4) Abnormal laboratory test Code(s): R89.9 - UNSP ABNORMAL FINDING IN SPECIMENS FROM OTH ORG/TISS (5) Autoimmune hepatitis Code(s): K75.4 - AUTOIMMUNE HEPATITIS Assessment/Plan Current Active Problems COPD (chronic obstructive pulmonary disease) (Acute) Cough (Acute) History of TB (tuberculosis) (Acute) Pneumonia (Acute) Troponin level elevated (Acute) dm uncontrolled hyperglycemia\ insulin resistant Laboratory Results - last 24 hr 01/20/18 01/20/18 01/20/18 16:57 20:56 20:57 POC Glucometer 389 421 423 01/21/18 01/21/18 01/21/18 00:57 05:46 10:26 POC Glucometer 275 171 231 01/21/18 15:00 POC Glucometer 311 Laboratory Tests 01/19/18 01/20/18 01/20/18 10:20 05:35 11:32 Sodium 134 L Potassium 4.7 Chloride 94 L Carbon Dioxide 30 Anion Gap 10 BUN 23 H Creatinine 1.0 POC Glucometer 333 Random Glucose 274 H Hemoglobin A1c % 10.8 H 01/20/18 01/20/18 01/21/18 20:56 20:57 00:57 Sodium Potassium Chloride Carbon Dioxide Anion Gap BUN Creatinine POC Glucometer 421 423 275 Random Glucose Hemoglobin A1c % 01/21/18 01/21/18 01/21/18 05:46 10:26 15:00 Sodium Potassium Chloride Carbon Dioxide Anion Gap BUN Creatinine POC Glucometer 171 231 311 Random Glucose Hemoglobin A1c % plan: Current Medications Generic Name Dose Route Start Last Admin Trade Name Freq PRN Reason Stop Dose Admin Albuterol Sulfate 1 amp 01/19/18 10:14 Ventolin 0.083% Nebulizer Soln - NEB Q4H PRN SHORT OF BREATH/WHEEZING Albuterol/Ipratropium 1 amp 01/19/18 12:00 01/21/18 13:00 Duoneb - NEB 1 amp RQID [facility] Administration Aspirin 81 mg 01/20/18 10:00 01/21/18 09:33 Asa - PO 81 mg DAILY [facility] Administration Budesonide/Formoterol Fumarate 2 puff 01/20/18 15:02 01/21/18 09:33 Symbicort 160/4.5mcg - IH 2 puff BID [facility] Administration Heparin Sodium (Porcine) 5,000 unit 01/19/18 14:00 01/21/18 15:02 Heparin - SQ 5,000 unit TID [facility] Administration Hydrochlorothiazide 25 mg 01/20/18 10:00 01/21/18 09:33 Hctz - PO 25 mg DAILY [facility] Administration Ceftriaxone Sodium 1 gm/ 50 mls @ 100 mls/hr 01/19/18 10:00 01/21/18 09:33 Dextrose IVPB 100 mls/hr DAILY [facility] Administration Insulin Aspart 1 vial 01/20/18 22:08 01/21/18 15:02 Novolog Vial Sliding Scale - SQ 8 units Q4HPO [facility] Administration Protocol Insulin Detemir 30 units 01/20/18 22:00 01/21/18 06:31 Levemir Vial SQ 30 units BID@0700,2200 [facility] Administration Lisinopril 20 mg 01/20/18 10:00 01/21/18 09:33 Prinivil PO 20 mg DAILY [facility] Administration Magnesium Hydroxide 30 ml 01/20/18 12:05 Milk Of Magnesia - PO PRN PRN CONSTIPATION Methylprednisolone Sodium Succinate 40 mg 01/21/18 18:00 Solu-Medrol - IVPUSH Q8H-IV [facility] Nitroglycerin 1 inch 01/19/18 12:00 01/21/18 11:10 Nitro-Bid 2% Paste - TD 1 inch Q6HPO [facility] Administration Pantoprazole Sodium 40 mg 01/19/18 10:00 01/21/18 09:33 Protonix - PO 40 mg BID [facility] Administration Polyethylene Glycol 17 gm 01/20/18 12:00 01/21/18 10:33 Miralax (For Daily Use) - PO 17 gm DAILY [facility] Administration levemir bid dosing bgm q4h as taper dose of steroid to po will change dose of insulin levemir 50 units am levemir 40 units pm
[2018-01-21] MEDS: methylPREDNISolone NA SUCC 40 MG/1 ML VIAL IVPUSH SCH (17:17)
[2018-01-21] MEDS ORDERED: INSULIN DETEMIR 100 UNITS/ML MDV SQ SCH (22:00)
[2018-01-22] MEDS: methylPREDNISolone NA SUCC 40 MG/1 ML VIAL IVPUSH SCH ×3 (01:00→21:01)
[2018-01-22] MEDS: NITROGLYCERIN 2% OINTMENT - 1GM PACKET TD SCH ×4 (01:00→17:26)
[2018-01-22] MEDS: INSULIN SLIDING SCALE (NOVOLOG) 1 VIAL SQ SCH ×4 (06:23→21:02)
[2018-01-22] MEDS: HEPARIN NA (PORCINE) 5,000 UNITS/ML 1ML VIAL SQ SCH ×3 (06:25→21:02)
[2018-01-22] MEDS ORDERED: INSULIN (NOVOLOG) ASPART 100 UNITS/ML 10ML VIAL ONE ×2 (06:33→20:53)
[2018-01-22] MEDS ORDERED: INSULIN DETEMIR 100 UNITS/ML MDV SQ SCH (07:00)
[2018-01-22 07:13] LABS: HEMATOCRIT 38.7 % (32.4-45.2); HEMOGLOBIN 13.1 GM/dL (10.7-15.3); MCH 31.7 pg (25.7-33.7); MCHC 33.9 g/dl (32.0-36.0); MEAN CELL VOLUME 93.4 fl (80-96); MEAN PLT VOLUME 6.8 fl (7.5-11.1); PLATELET COUNT 217 K/MM3 (134-434); RBC 4.15 M/mm3 (3.60-5.2); RDW 14.7 % (11.6-15.6); WHITE BLOOD COUNT 11.9 K/mm3 (4.0-10.0)
[2018-01-22 07:36] LABS: ANION GAP 7 (8-16); BLOOD UREA NITROGEN 32 mg/dL (7-18); CALCIUM 8.8 mg/dL (8.5-10.1); CHLORIDE 100 mmol/L (98-107); CO2 27 mmol/L (21-32); CREATININE 0.9 mg/dL (0.55-1.02); GLUCOSE,RANDOM 215 mg/dL (74-106); MAGNESIUM 2.1 mg/dL (1.8-2.4); POTASSIUM 4.5 mmol/L (3.5-5.1); SODIUM 134 mmol/L (136-145)
[2018-01-22] MEDS: ALBUTEROL SO4 2.5/IPRATROPIUM 0.5 INH SOL 3 ML VIAL.NEB. NEB SCH ×4 (07:54→20:14)
[2018-01-22] MEDS ORDERED: DEXTROSE 5%-WATER - 50 ML IVPB ONE (10:20)
[2018-01-22] MEDS ORDERED: PT OWN MED DRAWER 7, Y5N ONE ×4 (10:20→20:53)
[2018-01-22] MEDS ORDERED: cefTRIAXone SODIUM 1 GM VIAL ONE (10:20)
[2018-01-22] MEDS: ASPIRIN 81 MG CHEWABLE TABLETS PO SCH (10:31)
[2018-01-22] MEDS: PANTOPRAZOLE 40 MG TABLET (FP) PO SCH ×2 (10:31→21:01)
[2018-01-22] MEDS: POLYETHYLENE GLYCOL 3350 119 GM BTL PO SCH (10:31)
[2018-01-22] MEDS: CEFTRIAXONE 1 GM in DEXTROSE 5%-WATER - 50 ML IVPB SCH (10:32)
[2018-01-22] MEDS: HYDROCHLOROTHIAZIDE 25 MG TABLET (FP) PO SCH (10:32)
[2018-01-22] MEDS: LISINOPRIL 20 MG TABLET (FP) PO SCH (10:32)
[2018-01-22] MEDS: BUDESONIDE/FORMETEROL FUMARATE 160/4.5 mcg INHALER IH SCH ×2 (10:33→21:02)
--- NOTE | 2018-01-22 11:52 | PN ---
Progress Note, Physician - Current Medication List Current Medications: Active Medications Albuterol Sulfate (Ventolin 0.083% Nebulizer Soln -) 1 amp NEB Q4H PRN PRN Reason: SHORT OF BREATH/WHEEZING Albuterol/Ipratropium (Duoneb -) 1 amp NEB RQID [facility] Last Admin: 01/22/18 11:43 Dose: 1 amp Aspirin (Asa -) 81 mg PO DAILY [facility] Last Admin: 01/22/18 10:31 Dose: 81 mg Budesonide/Formoterol Fumarate (Symbicort 160/4.5mcg -) 2 puff IH BID [facility] Last Admin: 01/22/18 10:33 Dose: 2 puff Heparin Sodium (Porcine) (Heparin -) 5,000 unit SQ TID [facility] Last Admin: 01/22/18 06:25 Dose: 5,000 unit Hydrochlorothiazide (Hctz -) 25 mg PO DAILY [facility] Last Admin: 01/22/18 10:32 Dose: 25 mg Ceftriaxone Sodium 1 gm/ (Dextrose) 50 mls @ 100 mls/hr IVPB DAILY [facility] Last Admin: 01/22/18 10:32 Dose: 100 mls/hr Insulin Aspart (Novolog Vial Sliding Scale -) 1 vial SQ ACHS [facility] PRN Reason: Protocol Last Admin: 01/22/18 06:23 Dose: 8 units Insulin Detemir (Levemir Vial) 50 units SQ AM [facility] Last Admin: 01/22/18 06:24 Dose: 50 units Insulin Detemir (Levemir Vial) 40 units SQ HS [facility] Last Admin: 01/21/18 21:14 Dose: 40 units Lisinopril (Prinivil) 20 mg PO DAILY [facility] Last Admin: 01/22/18 10:32 Dose: 20 mg Magnesium Hydroxide (Milk Of Magnesia -) 30 ml PO PRN PRN PRN Reason: CONSTIPATION Nitroglycerin (Nitro-Bid 2% Paste -) 1 inch TD Q6HPO [facility] Last Admin: 01/22/18 06:25 Dose: 1 inch Pantoprazole Sodium (Protonix -) 40 mg PO BID [facility] Last Admin: 01/22/18 10:31 Dose: 40 mg Polyethylene Glycol (Miralax (For Daily Use) -) 17 gm PO DAILY [facility] Last Admin: 01/22/18 10:31 Dose: 17 gm - Objective Vital Signs: Vital Signs Temperature 97.9 F 01/22/18 10:00 Pulse Rate 83 01/22/18 10:00 Respiratory Rate 20 01/22/18 10:00 Blood Pressure 155/68 01/22/18 10:00 O2 Sat by Pulse Oximetry (%) 92 L 01/21/18 21:00 Cardiovascular: Yes: S1, S2 Respiratory: Yes: Diminished, Rhonchi Gastrointestinal: Yes: Normal Bowel Sounds, Soft Labs: CBC, BMP 01/22/18 06:00 01/22/18 06:00 INR, PTT INR 0.96 (0.82-1.09) 01/19/18 01:19 Problem List - Problems (1) COPD (chronic obstructive pulmonary disease) Assessment/Plan: -IV STEROIDS--taper -NEBS -PULM CONSULT -IV ABX Code(s): J44.9 - CHRONIC OBSTRUCTIVE PULMONARY DISEASE, UNSPECIFIED (2) Diabetes Assessment/Plan: -INSULIN -BGM Code(s): E11.9 - TYPE 2 DIABETES MELLITUS WITHOUT COMPLICATIONS Qualifiers: Diabetes mellitus type: type 2 (3) HLD (hyperlipidemia) Assessment/Plan: -CHECK LIPIDS Code(s): E78.5 - HYPERLIPIDEMIA, UNSPECIFIED (4) HTN (hypertension) Assessment/Plan: MONITOR ON CURRENT MEDS Code(s): I10 - ESSENTIAL (PRIMARY) HYPERTENSION (5) Troponin level elevated Assessment/Plan: -MAYBE DEMAND -FOLLOW TRENDS -TELE -CARDIO Code(s): R74.8 - ABNORMAL LEVELS OF OTHER SERUM ENZYMES (6) Pneumonia Assessment/Plan: iv abx pulm on board Code(s): J18.9 - PNEUMONIA, UNSPECIFIED ORGANISM
[2018-01-22 15:00] LABS: ALBUMIN 2.8 g/dl (3.4-5.0); BILIRUBIN,TOTAL 0.3 mg/dL (0.2-1.0); SGOT/AST 27 U/L (15-37); SGPT/ALT 25 U/L (12-78); TOT PROT 6.2 g/dl (6.4-8.2)
[2018-01-22 15:02] LABS: ALK PHOS 84 U/L (45-117)
--- NOTE | 2018-01-22 15:56 | PN ---
Progress Note (short form) - Note Progress Note: OOB to chair. Breathing feels a little better. (+) Pneumococcal antigen CT: noted / LLL consolidation / emphysema Intake & Output 01/19/18 01/20/18 01/21/18 01/22/18 23:59 23:59 23:59 23:59 Intake Total 560 550 560 800 Balance 560 550 560 800 Last Vital Signs Temp Pulse Resp BP Pulse Ox 97.9 F 83 20 155/68 94 L 01/22/18 10:00 01/22/18 10:00 01/22/18 10:00 01/22/18 10:00 01/22/18 09:00 Active Medications Albuterol Sulfate (Ventolin 0.083% Nebulizer Soln -) 1 amp NEB Q4H PRN PRN Reason: SHORT OF BREATH/WHEEZING Albuterol/Ipratropium (Duoneb -) 1 amp NEB RQID [facility] Last Admin: 01/22/18 11:43 Dose: 1 amp Aspirin (Asa -) 81 mg PO DAILY [facility] Last Admin: 01/22/18 10:31 Dose: 81 mg Budesonide/Formoterol Fumarate (Symbicort 160/4.5mcg -) 2 puff IH BID [facility] Last Admin: 01/22/18 10:33 Dose: 2 puff Heparin Sodium (Porcine) (Heparin -) 5,000 unit SQ TID [facility] Last Admin: 01/22/18 14:55 Dose: 5,000 unit Hydrochlorothiazide (Hctz -) 25 mg PO DAILY [facility] Last Admin: 01/22/18 10:32 Dose: 25 mg Ceftriaxone Sodium 1 gm/ (Dextrose) 50 mls @ 100 mls/hr IVPB DAILY [facility] Last Admin: 01/22/18 10:32 Dose: 100 mls/hr Insulin Aspart (Novolog Vial Sliding Scale -) 1 vial SQ ACHS [facility] PRN Reason: Protocol Last Admin: 01/22/18 12:31 Dose: 8 units Insulin Detemir (Levemir Vial) 50 units SQ AM [facility] Last Admin: 01/22/18 06:24 Dose: 50 units Insulin Detemir (Levemir Vial) 40 units SQ HS [facility] Last Admin: 01/21/18 21:14 Dose: 40 units Lisinopril (Prinivil) 20 mg PO DAILY [facility] Last Admin: 01/22/18 10:32 Dose: 20 mg Magnesium Hydroxide (Milk Of Magnesia -) 30 ml PO PRN PRN PRN Reason: CONSTIPATION Methylprednisolone Sodium Succinate (Solu-Medrol -) 40 mg IVPUSH BID [facility] Nitroglycerin (Nitro-Bid 2% Paste -) 1 inch TD Q6HPO [facility] Last Admin: 01/22/18 12:31 Dose: 1 inch Pantoprazole Sodium (Protonix -) 40 mg PO BID [facility] Last Admin: 01/22/18 10:31 Dose: 40 mg Polyethylene Glycol (Miralax (For Daily Use) -) 17 gm PO DAILY [facility] Last Admin: 01/22/18 10:31 Dose: 17 gm Constitutional: Yes: No Distress, Calm, Obese Eyes: Yes: Conjunctiva Clear, EOM Intact HENT: Yes: Atraumatic, Normocephalic Neck: Yes: Supple, Trachea Midline Cardiovascular: Yes: Regular Rate and Rhythm Respiratory: Yes: Cough, Diminished, Rhonchi, Wheezes. No: Accessory Muscle Use , Rales, Stridor, Tachypnea ...Inspection: Yes: WNL ...Clubbing: No Gastrointestinal: Yes: Normal Bowel Sounds, Soft, Abdomen, Obese Renal/: Yes: WNL Musculoskeletal: Yes: WNL Extremities: Yes: WNL Edema: No Peripheral Pulses WNL: Yes Integumentary: Yes: WNL Neurological: Yes: WNL, Alert, Oriented ...Motor Strength: WNL Psychiatric: Yes: WNL, Alert, Oriented Labs: Laboratory Results - last 24 hr 01/21/18 01/21/18 01/22/18 16:44 21:09 06:00 WBC 11.9 H RBC 4.15 Hgb 13.1 Hct 38.7 MCV 93.4 MCH 31.7 MCHC 33.9 RDW 14.7 Plt Count 217 MPV 6.8 L Sodium Potassium Chloride Carbon Dioxide Anion Gap BUN Creatinine Creat Clearance w eGFR POC Glucometer 251 295 Random Glucose Calcium Magnesium Total Bilirubin AST ALT Alkaline Phosphatase Creatine Kinase Troponin I Total Protein Albumin 01/22/18 01/22/18 01/22/18 06:00 06:20 12:06 WBC RBC Hgb Hct MCV MCH MCHC RDW Plt Count MPV Sodium 134 L Potassium 4.5 Chloride 100 Carbon Dioxide 27 Anion Gap 7 L BUN 32 H Creatinine 0.9 Creat Clearance w eGFR 0 POC Glucometer 208 213 Random Glucose 215 H Calcium 8.8 Magnesium 2.1 Total Bilirubin 0.3 D AST 27 ALT 25 Alkaline Phosphatase 84 Creatine Kinase 80 Troponin I 0.09 H Total Protein 6.2 L Albumin 2.8 L Problem List - Problems (1) History of TB (tuberculosis) Code(s): Z86.11 - PERSONAL HISTORY OF TUBERCULOSIS (2) COPD (chronic obstructive pulmonary disease) Code(s): J44.9 - CHRONIC OBSTRUCTIVE PULMONARY DISEASE, UNSPECIFIED (3) Cough Code(s): R05 - COUGH (4) Autoimmune hepatitis Code(s): K75.4 - AUTOIMMUNE HEPATITIS (5) Diabetes Code(s): E11.9 - TYPE 2 DIABETES MELLITUS WITHOUT COMPLICATIONS Qualifiers: Diabetes mellitus type: type 2 (6) HLD (hyperlipidemia) Code(s): E78.5 - HYPERLIPIDEMIA, UNSPECIFIED (7) HTN (hypertension) Code(s): I10 - ESSENTIAL (PRIMARY) HYPERTENSION (8) Transaminitis Code(s): R74.0 - NONSPEC ELEV OF LEVELS OF TRANSAMNS & LACTIC ACID DEHYDRGNSE Assessment/Plan Pneumococcal PNA Rocephin Medrol BD TX O2 as needed No smoking Will need outpatient PFTs Dr Martinez Problem List - Problems (1) History of TB (tuberculosis) Code(s): Z86.11 - PERSONAL HISTORY OF TUBERCULOSIS (2) COPD (chronic obstructive pulmonary disease) Code(s): J44.9 - CHRONIC OBSTRUCTIVE PULMONARY DISEASE, UNSPECIFIED (3) Cough Code(s): R05 - COUGH (4) Autoimmune hepatitis Code(s): K75.4 - AUTOIMMUNE HEPATITIS (5) Diabetes Code(s): E11.9 - TYPE 2 DIABETES MELLITUS WITHOUT COMPLICATIONS Qualifiers: Diabetes mellitus type: type 2 (6) HLD (hyperlipidemia) Code(s): E78.5 - HYPERLIPIDEMIA, UNSPECIFIED (7) HTN (hypertension) Code(s): I10 - ESSENTIAL (PRIMARY) HYPERTENSION (8) Transaminitis Code(s): R74.0 - NONSPEC ELEV OF LEVELS OF TRANSAMNS & LACTIC ACID DEHYDRGNSE
[2018-01-22] MEDS: INSULIN DETEMIR 100 UNITS/ML MDV SQ SCH (21:01)
[2018-01-23] MEDS: NITROGLYCERIN 2% OINTMENT - 1GM PACKET TD SCH ×5 (00:05→23:12)
[2018-01-23] MEDS ORDERED: INSULIN (NOVOLOG) ASPART 100 UNITS/ML 10ML VIAL ONE (06:10)
[2018-01-23] MEDS: INSULIN SLIDING SCALE (NOVOLOG) 1 VIAL SQ SCH ×4 (06:14→22:44)
[2018-01-23] MEDS: HEPARIN NA (PORCINE) 5,000 UNITS/ML 1ML VIAL SQ SCH ×3 (06:14→22:44)
[2018-01-23] MEDS: INSULIN DETEMIR 100 UNITS/ML MDV SQ SCH ×2 (06:14→22:44)
[2018-01-23] MEDS: ALBUTEROL SO4 2.5/IPRATROPIUM 0.5 INH SOL 3 ML VIAL.NEB. NEB SCH ×4 (08:04→20:24)
[2018-01-23] MEDS ORDERED: DEXTROSE 5%-WATER - 50 ML IVPB ONE (08:41)
[2018-01-23] MEDS ORDERED: cefTRIAXone SODIUM 1 GM VIAL ONE (08:41)
[2018-01-23] MEDS: CEFTRIAXONE 1 GM in DEXTROSE 5%-WATER - 50 ML IVPB SCH (09:01)
[2018-01-23] MEDS: PANTOPRAZOLE 40 MG TABLET (FP) PO SCH ×2 (09:01→22:45)
[2018-01-23] MEDS: methylPREDNISolone NA SUCC 40 MG/1 ML VIAL IVPUSH SCH (09:01)
[2018-01-23] MEDS: ASPIRIN 81 MG CHEWABLE TABLETS PO SCH (09:02)
[2018-01-23] MEDS: LISINOPRIL 20 MG TABLET (FP) PO SCH (09:02)
[2018-01-23] MEDS: BUDESONIDE/FORMETEROL FUMARATE 160/4.5 mcg INHALER IH SCH ×2 (09:02→22:45)
[2018-01-23] MEDS: POLYETHYLENE GLYCOL 3350 119 GM BTL PO SCH (09:02)
[2018-01-23] MEDS: HYDROCHLOROTHIAZIDE 25 MG TABLET (FP) PO SCH (09:02)
--- NOTE | 2018-01-23 13:19 | PN ---
Progress Note, Physician History of Present Illness: 72 F with hx. of COPD, DM, HTN, HLD autoimmune hepatitis who presents with cough and shortness of breath. States her symptoms began earlier today. Notes she used her nebulizer prior to coming to ED and she has noted some relief. States her cough has been so severe she has soreness in her upper abdomen. Denies any chest pain or pressure. - Current Medication List Current Medications: Active Medications Albuterol Sulfate (Ventolin 0.083% Nebulizer Soln -) 1 amp NEB Q4H PRN PRN Reason: SHORT OF BREATH/WHEEZING Albuterol/Ipratropium (Duoneb -) 1 amp NEB RQID [facility] Last Admin: 01/23/18 11:44 Dose: 1 amp Aspirin (Asa -) 81 mg PO DAILY [facility] Last Admin: 01/23/18 09:02 Dose: 81 mg Budesonide/Formoterol Fumarate (Symbicort 160/4.5mcg -) 2 puff IH BID [facility] Last Admin: 01/23/18 09:02 Dose: 2 puff Heparin Sodium (Porcine) (Heparin -) 5,000 unit SQ TID [facility] Last Admin: 01/23/18 13:14 Dose: 5,000 unit Hydrochlorothiazide (Hctz -) 25 mg PO DAILY [facility] Last Admin: 01/23/18 09:02 Dose: 25 mg Ceftriaxone Sodium 1 gm/ (Dextrose) 50 mls @ 100 mls/hr IVPB DAILY [facility] Last Admin: 01/23/18 09:01 Dose: 100 mls/hr Insulin Aspart (Novolog Vial Sliding Scale -) 1 vial SQ ACHS [facility] PRN Reason: Protocol Last Admin: 01/23/18 11:12 Dose: 5 units Insulin Detemir (Levemir Vial) 50 units SQ HS [facility] Last Admin: 01/22/18 21:01 Dose: 50 units Insulin Detemir (Levemir Vial) 60 units SQ AM [facility] Last Admin: 01/23/18 06:14 Dose: 60 units Lisinopril (Prinivil) 20 mg PO DAILY [facility] Last Admin: 01/23/18 09:02 Dose: 20 mg Magnesium Hydroxide (Milk Of Magnesia -) 30 ml PO PRN PRN PRN Reason: CONSTIPATION Last Admin: 01/22/18 19:26 Dose: 30 ml Nitroglycerin (Nitro-Bid 2% Paste -) 1 inch TD Q6HPO [facility] Last Admin: 01/23/18 11:17 Dose: 1 inch Pantoprazole Sodium (Protonix -) 40 mg PO BID [facility] Last Admin: 01/23/18 09:01 Dose: 40 mg Polyethylene Glycol (Miralax (For Daily Use) -) 17 gm PO DAILY [facility] Last Admin: 01/23/18 09:02 Dose: 17 gm - Objective Vital Signs: Vital Signs Temperature 98.1 F 01/23/18 10:00 Pulse Rate 70 01/23/18 10:00 Respiratory Rate 20 01/23/18 10:00 Blood Pressure 117/83 01/23/18 10:00 O2 Sat by Pulse Oximetry (%) 94 L 01/23/18 09:00 Cardiovascular: Yes: S1, S2 Respiratory: Yes: Rhonchi Gastrointestinal: Yes: Normal Bowel Sounds, Soft Labs: CBC, BMP 01/22/18 06:00 01/22/18 06:00 INR, PTT INR 0.96 (0.82-1.09) 01/19/18 01:19 Problem List - Problems (1) COPD (chronic obstructive pulmonary disease) Assessment/Plan: -IV STEROIDS--taper--to po prednisone -NEBS -PULM CONSULT -IV ABX Code(s): J44.9 - CHRONIC OBSTRUCTIVE PULMONARY DISEASE, UNSPECIFIED (2) Diabetes Assessment/Plan: -INSULIN -BGM Code(s): E11.9 - TYPE 2 DIABETES MELLITUS WITHOUT COMPLICATIONS Qualifiers: Diabetes mellitus type: type 2 (3) HLD (hyperlipidemia) Code(s): E78.5 - HYPERLIPIDEMIA, UNSPECIFIED (4) HTN (hypertension) Code(s): I10 - ESSENTIAL (PRIMARY) HYPERTENSION (5) Troponin level elevated Code(s): R74.8 - ABNORMAL LEVELS OF OTHER SERUM ENZYMES (6) Pneumonia Code(s): J18.9 - PNEUMONIA, UNSPECIFIED ORGANISM
--- NOTE | 2018-01-23 14:19 | PN ---
Progress Note (short form) - Note Progress Note: OOB to chair. Breathing feels better. Intake & Output 01/20/18 01/21/18 01/22/18 01/23/18 23:59 23:59 23:59 23:59 Intake Total 503 046 8879 Balance 634 490 6785 Last Vital Signs Temp Pulse Resp BP Pulse Ox 98.1 F 70 20 117/83 94 L 01/23/18 10:00 01/23/18 10:00 01/23/18 10:00 01/23/18 10:00 01/23/18 09:00 Active Medications Albuterol Sulfate (Ventolin 0.083% Nebulizer Soln -) 1 amp NEB Q4H PRN PRN Reason: SHORT OF BREATH/WHEEZING Albuterol/Ipratropium (Duoneb -) 1 amp NEB RQID [facility] [place] Last Admin: 01/23/18 11:44 Dose: 1 amp Aspirin (Asa -) 81 mg PO DAILY [facility] [place] Last Admin: 01/23/18 09:02 Dose: 81 mg Budesonide/Formoterol Fumarate (Symbicort 160/4.5mcg -) 2 puff IH BID [facility] [place] Last Admin: 01/23/18 09:02 Dose: 2 puff Heparin Sodium (Porcine) (Heparin -) 5,000 unit SQ TID [facility] [place] Last Admin: 01/23/18 13:14 Dose: 5,000 unit Hydrochlorothiazide (Hctz -) 25 mg PO DAILY [facility] [place] Last Admin: 01/23/18 09:02 Dose: 25 mg Ceftriaxone Sodium 1 gm/ (Dextrose) 50 mls @ 100 mls/hr IVPB DAILY [facility] [place] Last Admin: 01/23/18 09:01 Dose: 100 mls/hr Insulin Aspart (Novolog Vial Sliding Scale -) 1 vial SQ ACHS [facility] [place] PRN Reason: Protocol Last Admin: 01/23/18 11:12 Dose: 5 units Insulin Detemir (Levemir Vial) 50 units SQ HS [facility] [place] Last Admin: 01/22/18 21:01 Dose: 50 units Insulin Detemir (Levemir Vial) 60 units SQ AM [facility] [place] Last Admin: 01/23/18 06:14 Dose: 60 units Lisinopril (Prinivil) 20 mg PO DAILY [facility] [place] Last Admin: 01/23/18 09:02 Dose: 20 mg Magnesium Hydroxide (Milk Of Magnesia -) 30 ml PO PRN PRN PRN Reason: CONSTIPATION Last Admin: 01/22/18 19:26 Dose: 30 ml Nitroglycerin (Nitro-Bid 2% Paste -) 1 inch TD Q6HPO [facility] [place] Last Admin: 01/23/18 11:17 Dose: 1 inch Pantoprazole Sodium (Protonix -) 40 mg PO BID [facility] [place] Last Admin: 01/23/18 09:01 Dose: 40 mg Polyethylene Glycol (Miralax (For Daily Use) -) 17 gm PO DAILY [facility] [place] Last Admin: 01/23/18 09:02 Dose: 17 gm Prednisone (Deltasone -) 30 mg PO BID [facility] [place] Constitutional: Yes: No Distress, Calm, Obese Eyes: Yes: Conjunctiva Clear, EOM Intact HENT: Yes: Atraumatic, Normocephalic Neck: Yes: Supple, Trachea Midline Cardiovascular: Yes: Regular Rate and Rhythm Respiratory: Yes: Cough, Diminished, Rhonchi No: Accessory Muscle Use, Rales, Stridor, Tachypnea ...Inspection: Yes: WNL ...Clubbing: No Gastrointestinal: Yes: Normal Bowel Sounds, Soft, Abdomen, Obese Renal/: Yes: WNL Musculoskeletal: Yes: WNL Extremities: Yes: WNL Edema: No Peripheral Pulses WNL: Yes Integumentary: Yes: WNL Neurological: Yes: WNL, Alert, Oriented ...Motor Strength: WNL Psychiatric: Yes: WNL, Alert, Oriented Labs: Laboratory Results - last 24 hr 01/22/18 01/22/18 01/22/18 06:00 16:49 20:59 Sodium 134 L Potassium 4.5 Chloride 100 Carbon Dioxide 27 Anion Gap 7 L BUN 32 H Creatinine 0.9 Creat Clearance w eGFR 0 POC Glucometer 292 275 Random Glucose 215 H Calcium 8.8 Magnesium 2.1 Total Bilirubin 0.3 D AST 27 ALT 25 Alkaline Phosphatase 84 Creatine Kinase 80 Troponin I 0.09 H Total Protein 6.2 L Albumin 2.8 L 01/23/18 01/23/18 06:13 11:11 Sodium Potassium Chloride Carbon Dioxide Anion Gap BUN Creatinine Creat Clearance w eGFR POC Glucometer 214 187 Random Glucose Calcium Magnesium Total Bilirubin AST ALT Alkaline Phosphatase Creatine Kinase Troponin I Total Protein Albumin Problem List - Problems (1) History of TB (tuberculosis) Code(s): Z86.11 - PERSONAL HISTORY OF TUBERCULOSIS (2) COPD (chronic obstructive pulmonary disease) Code(s): J44.9 - CHRONIC OBSTRUCTIVE PULMONARY DISEASE, UNSPECIFIED (3) Cough Code(s): R05 - COUGH (4) Autoimmune hepatitis Code(s): K75.4 - AUTOIMMUNE HEPATITIS (5) Diabetes Code(s): E11.9 - TYPE 2 DIABETES MELLITUS WITHOUT COMPLICATIONS Qualifiers: Diabetes mellitus type: type 2 (6) HLD (hyperlipidemia) Code(s): E78.5 - HYPERLIPIDEMIA, UNSPECIFIED (7) HTN (hypertension) Code(s): I10 - ESSENTIAL (PRIMARY) HYPERTENSION (8) Transaminitis Code(s): R74.0 - NONSPEC ELEV OF LEVELS OF TRANSAMNS & LACTIC ACID DEHYDRGNSE Assessment/Plan Pneumococcal PNA Rocephin Medrol BD TX O2 as needed No smoking Will need outpatient PFTs Dr Martinez Problem List - Problems (1) History of TB (tuberculosis) Code(s): Z86.11 - PERSONAL HISTORY OF TUBERCULOSIS (2) COPD (chronic obstructive pulmonary disease) Code(s): J44.9 - CHRONIC OBSTRUCTIVE PULMONARY DISEASE, UNSPECIFIED (3) Cough Code(s): R05 - COUGH (4) Autoimmune hepatitis Code(s): K75.4 - AUTOIMMUNE HEPATITIS (5) Diabetes Code(s): E11.9 - TYPE 2 DIABETES MELLITUS WITHOUT COMPLICATIONS Qualifiers: Diabetes mellitus type: type 2 (6) HLD (hyperlipidemia) Code(s): E78.5 - HYPERLIPIDEMIA, UNSPECIFIED (7) HTN (hypertension) Code(s): I10 - ESSENTIAL (PRIMARY) HYPERTENSION (8) Transaminitis Code(s): R74.0 - NONSPEC ELEV OF LEVELS OF TRANSAMNS & LACTIC ACID DEHYDRGNSE
[2018-01-23] MEDS ORDERED: PT OWN MED DRAWER 7, Y5N ONE ×2 (22:39→22:50)
[2018-01-23] MEDS: predniSONE 10 MG TABLET (UD) PO SCH (22:45)
[2018-01-24] MEDS: HEPARIN NA (PORCINE) 5,000 UNITS/ML 1ML VIAL SQ SCH ×3 (06:37→21:39)
[2018-01-24] MEDS: INSULIN SLIDING SCALE (NOVOLOG) 1 VIAL SQ SCH ×4 (06:37→21:41)
[2018-01-24] MEDS: INSULIN DETEMIR 100 UNITS/ML MDV SQ SCH ×2 (06:38→21:40)
[2018-01-24] MEDS: NITROGLYCERIN 2% OINTMENT - 1GM PACKET TD SCH ×4 (06:38→23:44)
[2018-01-24] MEDS ORDERED: INSULIN (NOVOLOG) ASPART 100 UNITS/ML 10ML VIAL ONE ×3 (06:44→21:30)
[2018-01-24] MEDS: ALBUTEROL SO4 2.5/IPRATROPIUM 0.5 INH SOL 3 ML VIAL.NEB. NEB SCH (08:03)
[2018-01-24] MEDS ORDERED: cefTRIAXone SODIUM 1 GM VIAL ONE (08:41)
[2018-01-24] MEDS ORDERED: DEXTROSE 5%-WATER - 50 ML IVPB ONE (08:42)
[2018-01-24] MEDS ORDERED: PT OWN MED DRAWER 7, Y5N ONE (08:50)
[2018-01-24] MEDS: LISINOPRIL 20 MG TABLET (FP) PO SCH (09:04)
[2018-01-24] MEDS: ASPIRIN 81 MG CHEWABLE TABLETS PO SCH (09:05)
[2018-01-24] MEDS: HYDROCHLOROTHIAZIDE 25 MG TABLET (FP) PO SCH (09:05)
[2018-01-24] MEDS: POLYETHYLENE GLYCOL 3350 119 GM BTL PO SCH (09:05)
[2018-01-24] MEDS: PANTOPRAZOLE 40 MG TABLET (FP) PO SCH ×2 (09:05→21:39)
[2018-01-24] MEDS: predniSONE 10 MG TABLET (UD) PO SCH ×2 (09:05→21:39)
[2018-01-24] MEDS: CEFTRIAXONE 1 GM in DEXTROSE 5%-WATER - 50 ML IVPB SCH (09:06)
[2018-01-24] MEDS: BUDESONIDE/FORMETEROL FUMARATE 160/4.5 mcg INHALER IH SCH ×2 (09:06→21:39)
--- NOTE | 2018-01-24 09:12 | DS ---
Physical Examination Vital Signs: Vital Signs Temperature 97.7 F 01/24/18 06:00 Pulse Rate 100 H 01/24/18 06:00 Respiratory Rate 18 01/24/18 06:00 Blood Pressure 133/74 01/24/18 06:00 O2 Sat by Pulse Oximetry (%) 94 L 01/23/18 21:00 Findings/Remarks: awake eating breakfast FEELING BETTER BUT STILL HAS EPISODED OF SOB WEAKNESS Constitutional: Yes: No Distress Eyes: Yes: WNL HENT: Yes: WNL Neck: Yes: WNL Cardiovascular: Yes: WNL Respiratory: Yes: On Nasal O2, Other Gastrointestinal: Yes: WNL Renal/: Yes: WNL Musculoskeletal: Yes: WNL Extremities: Yes: Other Edema: No Peripheral Pulses WNL: Yes Integumentary: Yes: WNL Wound/Incision: Yes: Other Neurological: Yes: Pre-Existing Deficit, Unsteady Gait ...Motor Strength: LLE, RLE Psychiatric: Yes: Other Labs: CBC, BMP 01/22/18 06:00 01/22/18 06:00 Discharge Summary Reason For Visit: COUGH COPD Current Active Problems COPD (chronic obstructive pulmonary disease) (Acute) Cough (Acute) History of TB (tuberculosis) (Acute) Pneumonia (Acute) Troponin level elevated (Acute) Procedures: Principal: CT CHEST Hospital Course: ADMITTED FOR PNEUMONIA, COPD ACUTE EXACERBATION TREATED IV STEROIDS, IV ABX RESP SUPPORT, WILL NEED SNF FOR PULMONARY REHAB AND PHYSICAL THERAPY Condition: Stable - Instructions Diet, Activity, Other Instructions: LOW SODIUM/ADA PULM REHAB TAPER STEROIDS Referrals: Ju Melendez MD [Primary Care Provider] - Disposition: [facility] FACILITY - Home Medications Comprehensive Discharge Medication List: Ambulatory Orders Budesonide/Formeterol Fumarate [SYMBICORT 160/4.5mcg -] 1 puff IH BID #1 inhaler 11/24/17 Aspirin [ASA -] 81 mg PO DAILY 01/19/18 Atorvastatin Ca [Lipitor] 40 mg PO HS 01/19/18 Donepezil HCl 5 mg PO DAILY 01/19/18 Hydrochlorothiazide [Hctz -] 25 mg PO DAILY 01/19/18 Lisinopril 20 mg PO DAILY 01/19/18 Albuterol 0.083% Nebulizer Isha [Ventolin 0.083% Nebulizer Soln -] 1 amp NEB Q4H PRN amp 01/24/18 Albuterol 2.5/Ipratropium 0.5 [Duoneb -] 1 amp NEB RQID amp 01/24/18 Amoxicillin/Potassium Clav [Augmentin 500-125 Tablet] 1 each PO BID #10 tablet 01/24/18 Heparin - 5,000 unit SQ TID vial 01/24/18 Insulin (Levemir) [Levemir Vial] 50 units SQ HS ml 01/24/18 Insulin (Levemir) [Levemir Vial] 60 units SQ AM ml 01/24/18 Insulin Sliding Scale [Novolog Vial Sliding Scale -] 1 vial SQ ACHS units 01/24 Magnesium Hydrox 2400MG/30Ml [Milk of Magnesia -] 30 ml PO PRN PRN cup Pantoprazole Sodium [Protonix -] 40 mg PO BID tablet.ec 01/24/18 Polyethylene Glycol 3350 [Miralax 119 gm Btl -] 17 gm PO DAILY bottle 01/24/18 predniSONE [Deltasone -] 30 mg PO BID tablet 01/24/18
--- NOTE | 2018-01-24 12:14 | PN ---
Progress Note, Physician History of Present Illness: PULMONARY ALERT,SITTING UP IN BED,-SOB,LESS COUGH - Current Medication List Current Medications: Active Medications Aspirin (Asa -) 81 mg PO DAILY [facility] Last Admin: 01/24/18 09:05 Dose: 81 mg Budesonide/Formoterol Fumarate (Symbicort 160/4.5mcg -) 2 puff IH BID [facility] Last Admin: 01/24/18 09:06 Dose: 2 puff Heparin Sodium (Porcine) (Heparin -) 5,000 unit SQ TID [facility] Last Admin: 01/24/18 06:37 Dose: 5,000 unit Hydrochlorothiazide (Hctz -) 25 mg PO DAILY [facility] Last Admin: 01/24/18 09:05 Dose: 25 mg Ceftriaxone Sodium 1 gm/ (Dextrose) 50 mls @ 100 mls/hr IVPB DAILY [facility] Last Admin: 01/24/18 09:06 Dose: 100 mls/hr Insulin Aspart (Novolog Vial Sliding Scale -) 1 vial SQ ACHS [facility] PRN Reason: Protocol Last Admin: 01/24/18 06:37 Dose: 5 units Insulin Detemir (Levemir Vial) 50 units SQ HS [facility] Last Admin: 01/23/18 22:44 Dose: 50 units Insulin Detemir (Levemir Vial) 60 units SQ AM [facility] Last Admin: 01/24/18 06:38 Dose: 60 units Lisinopril (Prinivil) 20 mg PO DAILY [facility] Last Admin: 01/24/18 09:04 Dose: 20 mg Magnesium Hydroxide (Milk Of Magnesia -) 30 ml PO PRN PRN PRN Reason: CONSTIPATION Last Admin: 01/22/18 19:26 Dose: 30 ml Nitroglycerin (Nitro-Bid 2% Paste -) 1 inch TD Q6HPO [facility] Last Admin: 01/24/18 06:38 Dose: 1 inch Pantoprazole Sodium (Protonix -) 40 mg PO BID [facility] Last Admin: 01/24/18 09:05 Dose: 40 mg Polyethylene Glycol (Miralax (For Daily Use) -) 17 gm PO DAILY [facility] Last Admin: 01/24/18 09:05 Dose: 17 gm Prednisone (Deltasone -) 30 mg PO BID [facility] Last Admin: 01/24/18 09:05 Dose: 30 mg - Objective Vital Signs: Vital Signs Temperature 98.2 F 01/24/18 10:00 Pulse Rate 82 04/16/18 10:00 Respiratory Rate 18 01/24/18 10:00 Blood Pressure 141/83 01/24/18 10:00 O2 Sat by Pulse Oximetry (%) 95 01/24/18 09:00 Constitutional: Yes: Well Nourished, Calm Eyes: Yes: WNL HENT: Yes: WNL Neck: Yes: WNL Cardiovascular: Yes: Regular Rate and Rhythm, S1, S2 Respiratory: Yes: Rhonchi (FEW RHONCHI) Gastrointestinal: Yes: Normal Bowel Sounds, Soft Extremities: Yes: WNL Edema: No Labs: CBC, BMP 01/22/18 06:00 01/22/18 06:00 INR, PTT INR 0.96 (0.82-1.09) 01/19/18 01:19 Problem List - Problems (1) Pneumonia Code(s): J18.9 - PNEUMONIA, UNSPECIFIED ORGANISM Assessment/Plan Problem List - Problems (1) History of TB (tuberculosis) Code(s): Z86.11 - PERSONAL HISTORY OF TUBERCULOSIS (2) COPD (chronic obstructive pulmonary disease) Code(s): J44.9 - CHRONIC OBSTRUCTIVE PULMONARY DISEASE, UNSPECIFIED (3) Cough Code(s): R05 - COUGH (4) Autoimmune hepatitis Code(s): K75.4 - AUTOIMMUNE HEPATITIS (5) Diabetes Code(s): E11.9 - TYPE 2 DIABETES MELLITUS WITHOUT COMPLICATIONS Qualifiers: Diabetes mellitus type: type 2 (6) HLD (hyperlipidemia) Code(s): E78.5 - HYPERLIPIDEMIA, UNSPECIFIED (7) HTN (hypertension) Code(s): I10 - ESSENTIAL (PRIMARY) HYPERTENSION (8) Transaminitis Code(s): R74.0 - NONSPEC ELEV OF LEVELS OF TRANSAMNS & LACTIC ACID DEHYDRGNSE Assessment/Plan Pneumococcal pneumonia prednisone BD TX O2 as needed No smoking outpatient PFTs ABX DR SCOTT
[2018-01-24] MEDS ORDERED: ALBUTEROL SO4 0.083% IH SOL 2.5 MG/3 ML VIAL.NEB. NEB PRN (20:43)
[2018-01-25] MEDS ORDERED: INSULIN (NOVOLOG) ASPART 100 UNITS/ML 10ML VIAL ONE ×2 (06:09→11:27)
[2018-01-25] MEDS: NITROGLYCERIN 2% OINTMENT - 1GM PACKET TD SCH ×4 (06:15→23:41)
[2018-01-25] MEDS: INSULIN DETEMIR 100 UNITS/ML MDV SQ SCH ×2 (06:16→21:26)
[2018-01-25] MEDS: HEPARIN NA (PORCINE) 5,000 UNITS/ML 1ML VIAL SQ SCH ×3 (06:16→21:26)
[2018-01-25] MEDS: INSULIN SLIDING SCALE (NOVOLOG) 1 VIAL SQ SCH ×4 (06:17→21:25)
[2018-01-25 07:03] LABS: HEMATOCRIT 38.3 % (32.4-45.2); HEMOGLOBIN 13.1 GM/dL (10.7-15.3); MCH 31.6 pg (25.7-33.7); MCHC 34.1 g/dl (32.0-36.0); MEAN CELL VOLUME 92.8 fl (80-96); PLATELET COUNT 174 K/MM3 (134-434); RBC 4.13 M/mm3 (3.60-5.2); RDW 14.8 % (11.6-15.6)
[2018-01-25 07:18] LABS: CHLORIDE 97 mmol/L (98-107); POTASSIUM 4.7 mmol/L (3.5-5.1); SODIUM 132 mmol/L (136-145)
[2018-01-25 07:23] LABS: ANION GAP 6 (8-16); BLOOD UREA NITROGEN 24 mg/dL (7-18); CALCIUM 8.7 mg/dL (8.5-10.1); CO2 29 mmol/L (21-32); CREATININE 0.8 mg/dL (0.55-1.02); GLUCOSE,RANDOM 168 mg/dL (74-106); MAGNESIUM 2.1 mg/dL (1.8-2.4)
[2018-01-25] MEDS: ALBUTEROL SO4 2.5/IPRATROPIUM 0.5 INH SOL 3 ML VIAL.NEB. NEB SCH ×4 (08:00→19:12)
[2018-01-25] MEDS ORDERED: PT OWN MED DRAWER 7, Y5N ONE (08:40)
[2018-01-25] MEDS ORDERED: DEXTROSE 5%-WATER - 50 ML IVPB ONE (08:40)
[2018-01-25] MEDS ORDERED: cefTRIAXone SODIUM 1 GM VIAL ONE (08:40)
[2018-01-25] MEDS: BUDESONIDE/FORMETEROL FUMARATE 160/4.5 mcg INHALER IH SCH ×2 (09:11→21:27)
[2018-01-25] MEDS: HYDROCHLOROTHIAZIDE 25 MG TABLET (FP) PO SCH (09:12)
[2018-01-25] MEDS: PANTOPRAZOLE 40 MG TABLET (FP) PO SCH ×2 (09:12→21:27)
[2018-01-25] MEDS: LISINOPRIL 20 MG TABLET (FP) PO SCH (09:12)
[2018-01-25] MEDS: ASPIRIN 81 MG CHEWABLE TABLETS PO SCH (09:12)
[2018-01-25] MEDS: predniSONE 10 MG TABLET (UD) PO SCH (09:12)
[2018-01-25] MEDS: CEFTRIAXONE 1 GM in DEXTROSE 5%-WATER - 50 ML IVPB SCH (09:13)
[2018-01-25] MEDS: POLYETHYLENE GLYCOL 3350 119 GM BTL PO SCH (09:14)
--- NOTE | 2018-01-25 12:10 | PN ---
Progress Note, Physician Chief Complaint: patient getting nebulizer treatment in chair no SOB awaiting to go to authorization pending - Current Medication List Current Medications: Active Medications Albuterol Sulfate (Ventolin 0.083% Nebulizer Soln -) 1 amp NEB Q4H PRN PRN Reason: SHORT OF BREATH/WHEEZING Last Admin: 01/24/18 20:48 Dose: 1 amp Albuterol/Ipratropium (Duoneb -) 1 amp NEB RQID [facility] Aspirin (Asa -) 81 mg PO DAILY [facility] Last Admin: 01/25/18 09:12 Dose: 81 mg Budesonide/Formoterol Fumarate (Symbicort 160/4.5mcg -) 2 puff IH BID [facility] Last Admin: 01/25/18 09:11 Dose: 2 puff Heparin Sodium (Porcine) (Heparin -) 5,000 unit SQ TID [facility] Last Admin: 01/25/18 06:16 Dose: 5,000 unit Insulin Aspart (Novolog Vial Sliding Scale -) 1 vial SQ ACHS [facility] PRN Reason: Protocol Last Admin: 01/25/18 06:17 Dose: 5 units Insulin Detemir (Levemir Vial) 50 units SQ HS [facility] Last Admin: 01/24/18 21:40 Dose: 50 units Insulin Detemir (Levemir Vial) 60 units SQ AM [facility] Last Admin: 01/25/18 06:16 Dose: 60 units Lisinopril (Prinivil) 20 mg PO DAILY [facility] Last Admin: 01/25/18 09:12 Dose: 20 mg Magnesium Hydroxide (Milk Of Magnesia -) 30 ml PO PRN PRN PRN Reason: CONSTIPATION Last Admin: 01/22/18 19:26 Dose: 30 ml Nitroglycerin (Nitro-Bid 2% Paste -) 1 inch TD Q6HPO [facility] Last Admin: 01/25/18 11:16 Dose: 1 inch Pantoprazole Sodium (Protonix -) 40 mg PO BID [facility] Last Admin: 01/25/18 09:12 Dose: 40 mg Polyethylene Glycol (Miralax (For Daily Use) -) 17 gm PO DAILY [facility] Last Admin: 01/25/18 09:14 Dose: 17 gm Prednisone (Deltasone -) 20 mg PO BID [facility] - Objective Vital Signs: Vital Signs Temperature 98.3 F 01/25/18 10:00 Pulse Rate 85 01/25/18 10:00 Respiratory Rate 01/25/18 10:00 Blood Pressure 119/65 01/25/18 10:00 O2 Sat by Pulse Oximetry (%) 96 01/25/18 09:00 Constitutional: Yes: Calm Cardiovascular: Yes: Regular Rate and Rhythm, S1, S2 Respiratory: Yes: CTA Bilaterally Gastrointestinal: Yes: Normal Bowel Sounds, Soft Neurological: Yes: Alert, Oriented Labs: CBC, BMP 01/25/18 05:35 01/25/18 05:35 INR, PTT INR 0.96 (0.82-1.09) 01/19/18 01:19 Problem List - Problems (1) COPD (chronic obstructive pulmonary disease) Assessment/Plan: rocephin to ceftin for pna taper prednisone to 20mg po bid oxygen as needed nebulizer Code(s): J44.9 - CHRONIC OBSTRUCTIVE PULMONARY DISEASE, UNSPECIFIED (2) Diabetes Assessment/Plan: levemir sliding scale Code(s): E11.9 - TYPE 2 DIABETES MELLITUS WITHOUT COMPLICATIONS Qualifiers: Diabetes mellitus type: type 2 (3) Troponin level elevated Assessment/Plan: nitropaste Code(s): R74.8 - ABNORMAL LEVELS OF OTHER SERUM ENZYMES Assessment/Plan stop hctz given electrolyte changes
--- NOTE | 2018-01-25 13:52 | PN ---
Progress Note (short form) - Note Progress Note: PULMONARY Denies shortness of breath or chest pain. Last Vital Signs Temp Pulse Resp BP Pulse Ox 98.3 F 85 18 119/65 96 01/25/18 10:00 01/25/18 10:00 01/25/18 10:00 01/25/18 10:00 01/25/18 09:00 Gen: NAD at rest Heart: RRR Lung: decreased breath sounds at the bases Abd: soft, nontender Ext: no edema CBC, BMP 01/25/18 05:35 01/25/18 05:35 Active Medications Albuterol Sulfate (Ventolin 0.083% Nebulizer Soln -) 1 amp NEB Q4H PRN PRN Reason: SHORT OF BREATH/WHEEZING Last Admin: 01/24/18 20:48 Dose: 1 amp Albuterol/Ipratropium (Duoneb -) 1 amp NEB RQID [facility] Aspirin (Asa -) 81 mg PO DAILY [facility] Last Admin: 01/25/18 09:12 Dose: 81 mg Budesonide/Formoterol Fumarate (Symbicort 160/4.5mcg -) 2 puff IH BID [facility] Last Admin: 01/25/18 09:11 Dose: 2 puff Heparin Sodium (Porcine) (Heparin -) 5,000 unit SQ TID [facility] Last Admin: 01/25/18 13:41 Dose: 5,000 unit Insulin Aspart (Novolog Vial Sliding Scale -) 1 vial SQ ACHS [facility] PRN Reason: Protocol Last Admin: 01/25/18 12:10 Dose: 8 units Insulin Detemir (Levemir Vial) 50 units SQ HS [facility] Last Admin: 01/24/18 21:40 Dose: 50 units Insulin Detemir (Levemir Vial) 60 units SQ AM [facility] Last Admin: 01/25/18 06:16 Dose: 60 units Lisinopril (Prinivil) 20 mg PO DAILY [facility] Last Admin: 01/25/18 09:12 Dose: 20 mg Magnesium Hydroxide (Milk Of Magnesia -) 30 ml PO PRN PRN PRN Reason: CONSTIPATION Last Admin: 01/22/18 19:26 Dose: 30 ml Nitroglycerin (Nitro-Bid 2% Paste -) 1 inch TD Q6HPO [facility] Last Admin: 01/25/18 11:16 Dose: 1 inch Pantoprazole Sodium (Protonix -) 40 mg PO BID [facility] Last Admin: 01/25/18 09:12 Dose: 40 mg Polyethylene Glycol (Miralax (For Daily Use) -) 17 gm PO DAILY [facility] Last Admin: 01/25/18 09:14 Dose: 17 gm Prednisone (Deltasone -) 20 mg PO BID [facility] A/P Acute COPD Exacerbation HTN Hyperlipidemia h/o TB - prednisone taper - inhaled bronchodilators - O2 as needed - glucose control while on systemic steroids - outpt PFTs
[2018-01-25] MEDS: predniSONE 20 MG TABLET (UD) PO SCH (21:27)
--- NOTE | 2018-01-26 00:33 | PN ---
Progress Note, Physician Chief Complaint: high sugars feels unsure of doses of insulin to take History of Present Illness: diabetes mellitus,insulin resistant from steroid requirement breathing easier since treatment given - Current Medication List Current Medications: Active Medications Albuterol Sulfate (Ventolin 0.083% Nebulizer Soln -) 1 amp NEB Q4H PRN PRN Reason: SHORT OF BREATH/WHEEZING Last Admin: 01/24/18 20:48 Dose: 1 amp Albuterol/Ipratropium (Duoneb -) 1 amp NEB RQID [facility] Last Admin: 01/25/18 19:12 Dose: 1 amp Aspirin (Asa -) 81 mg PO DAILY [facility] Last Admin: 01/25/18 09:12 Dose: 81 mg Budesonide/Formoterol Fumarate (Symbicort 160/4.5mcg -) 2 puff IH BID [facility] Last Admin: 01/25/18 21:27 Dose: 2 puff Heparin Sodium (Porcine) (Heparin -) 5,000 unit SQ TID [facility] Last Admin: 01/25/18 21:26 Dose: 5,000 unit Insulin Aspart (Novolog Vial Sliding Scale -) 1 vial SQ ACHS [facility] PRN Reason: Protocol Last Admin: 01/25/18 21:25 Dose: 8 units Insulin Detemir (Levemir Vial) 50 units SQ HS [facility] Last Admin: 01/25/18 21:26 Dose: 50 units Insulin Detemir (Levemir Vial) 60 units SQ AM [facility] Last Admin: 01/25/18 06:16 Dose: 60 units Lisinopril (Prinivil) 20 mg PO DAILY [facility] Last Admin: 01/25/18 09:12 Dose: 20 mg Magnesium Hydroxide (Milk Of Magnesia -) 30 ml PO PRN PRN PRN Reason: CONSTIPATION Last Admin: 01/22/18 19:26 Dose: 30 ml Nitroglycerin (Nitro-Bid 2% Paste -) 1 inch TD Q6HPO [facility] Last Admin: 01/25/18 23:41 Dose: 1 inch Pantoprazole Sodium (Protonix -) 40 mg PO BID [facility] Last Admin: 01/25/18 21:27 Dose: 40 mg Polyethylene Glycol (Miralax (For Daily Use) -) 17 gm PO DAILY [facility] Last Admin: 01/25/18 09:14 Dose: 17 gm Prednisone (Deltasone -) 20 mg PO BID [facility] Last Admin: 01/25/18 21:27 Dose: 20 mg - Objective Vital Signs: Vital Signs Temperature 97.8 F 01/25/18 22:00 Pulse Rate 77 01/25/18 22:00 Respiratory Rate 20 01/25/18 22:00 Blood Pressure 115/58 01/25/18 22:00 O2 Sat by Pulse Oximetry (%) 96 01/25/18 21:00 Constitutional: Yes: Calm Eyes: Yes: EOM Intact HENT: Yes: Normocephalic Neck: Yes: Trachea Midline Cardiovascular: Yes: Regular Rate and Rhythm Respiratory: Yes: CTA Bilaterally Gastrointestinal: Yes: Normal Bowel Sounds ...Rectal Exam: Yes: Deferred Genitourinary: Yes: WNL Breast(s): Yes: WNL Musculoskeletal: Yes: WNL Extremities: Yes: WNL Neurological: Yes: Alert, Oriented Labs: CBC, BMP 01/25/18 05:35 01/25/18 05:35 INR, PTT INR 0.96 (0.82-1.09) 01/19/18 01:19 Problem List - Problems (1) COPD (chronic obstructive pulmonary disease) Code(s): J44.9 - CHRONIC OBSTRUCTIVE PULMONARY DISEASE, UNSPECIFIED (2) History of TB (tuberculosis) Code(s): Z86.11 - PERSONAL HISTORY OF TUBERCULOSIS (3) Troponin level elevated Code(s): R74.8 - ABNORMAL LEVELS OF OTHER SERUM ENZYMES (4) Abnormal laboratory test Code(s): R89.9 - UNSP ABNORMAL FINDING IN SPECIMENS FROM OTH ORG/TISS (5) Autoimmune hepatitis Code(s): K75.4 - AUTOIMMUNE HEPATITIS Assessment/Plan Current Active Problems COPD (chronic obstructive pulmonary disease) (Acute) Cough (Acute) History of TB (tuberculosis) (Acute) Pneumonia (Acute) Troponin level elevated (Acute) diabetes mellitus hyperglycemia diabetic neuropathy Abnormal Lab Results 01/25/18 01/25/18 05:35 05:35 WBC 11.0 H MPV 7.0 L Sodium 132 L Chloride 97 L Anion Gap 6 L BUN 24 H Random Glucose 168 H Laboratory Results - last 24 hr 01/25/18 01/25/18 01/25/18 05:35 05:35 06:15 WBC 11.0 H RBC 4.13 Hgb 13.1 Hct 38.3 MCV 92.8 MCH 31.6 MCHC 34.1 RDW 14.8 Plt Count 174 MPV 7.0 L Sodium 132 L Potassium 4.7 Chloride 97 L Carbon Dioxide 29 Anion Gap 6 L BUN 24 H Creatinine 0.8 POC Glucometer 177 Random Glucose 168 H Calcium 8.7 Magnesium 2.1 01/25/18 01/25/18 01/25/18 11:13 16:58 21:24 WBC RBC Hgb Hct MCV MCH MCHC RDW Plt Count MPV Sodium Potassium Chloride Carbon Dioxide Anion Gap BUN Creatinine POC Glucometer 225 269 238 Random Glucose Calcium Magnesium plan: levemir dose adjustment novolog coverage doses will need checking and adjustment based on level of sugar
[2018-01-26] MEDS ORDERED: INSULIN (NOVOLOG) ASPART 100 UNITS/ML 10ML VIAL ONE ×2 (06:04→11:34)
[2018-01-26] MEDS: INSULIN DETEMIR 100 UNITS/ML MDV SQ SCH (06:10)
[2018-01-26] MEDS: HEPARIN NA (PORCINE) 5,000 UNITS/ML 1ML VIAL SQ SCH ×2 (06:10→14:23)
[2018-01-26] MEDS: INSULIN SLIDING SCALE (NOVOLOG) 1 VIAL SQ SCH ×2 (06:11→12:02)
[2018-01-26] MEDS: NITROGLYCERIN 2% OINTMENT - 1GM PACKET TD SCH ×2 (06:11→11:17)
[2018-01-26] MEDS: ALBUTEROL SO4 2.5/IPRATROPIUM 0.5 INH SOL 3 ML VIAL.NEB. NEB SCH ×3 (08:37→15:09)
[2018-01-26] MEDS ORDERED: PT OWN MED DRAWER 7, Y5N ONE ×2 (08:41→11:00)
[2018-01-26] MEDS: BUDESONIDE/FORMETEROL FUMARATE 160/4.5 mcg INHALER IH SCH (09:00)
[2018-01-26] MEDS: POLYETHYLENE GLYCOL 3350 119 GM BTL PO SCH (09:00)
[2018-01-26] MEDS: LISINOPRIL 20 MG TABLET (FP) PO SCH (09:00)
[2018-01-26] MEDS: PANTOPRAZOLE 40 MG TABLET (FP) PO SCH (09:00)
[2018-01-26] MEDS: ASPIRIN 81 MG CHEWABLE TABLETS PO SCH (09:00)
[2018-01-26] MEDS: predniSONE 20 MG TABLET (UD) PO SCH (09:00)
[2018-01-26 10:38] VITALS: TEMP 98.4
--- NOTE | 2018-01-26 11:40 | PN ---
Progress Note, Physician History of Present Illness: pulmonary alert,oob-chair,comfortable,-resp distress - Current Medication List Current Medications: Active Medications Albuterol Sulfate (Ventolin 0.083% Nebulizer Soln -) 1 amp NEB Q4H PRN PRN Reason: SHORT OF BREATH/WHEEZING Last Admin: 01/24/18 20:48 Dose: 1 amp Albuterol/Ipratropium (Duoneb -) 1 amp NEB RQID [facility] Last Admin: 01/26/18 11:36 Dose: 1 amp Aspirin (Asa -) 81 mg PO DAILY [facility] Last Admin: 01/26/18 09:00 Dose: 81 mg Budesonide/Formoterol Fumarate (Symbicort 160/4.5mcg -) 2 puff IH BID [facility] Last Admin: 01/26/18 09:00 Dose: 2 puff Heparin Sodium (Porcine) (Heparin -) 5,000 unit SQ TID [facility] Last Admin: 01/26/18 06:10 Dose: 5,000 unit Insulin Aspart (Novolog Vial Sliding Scale -) 1 vial SQ ACHS [facility] PRN Reason: Protocol Last Admin: 01/26/18 06:11 Dose: Not Given Insulin Detemir (Levemir Vial) 50 units SQ HS [facility] Last Admin: 01/25/18 21:26 Dose: 50 units Insulin Detemir (Levemir Vial) 60 units SQ AM [facility] Last Admin: 01/26/18 06:10 Dose: 60 units Lisinopril (Prinivil) 20 mg PO DAILY [facility] Last Admin: 01/26/18 09:00 Dose: 20 mg Magnesium Hydroxide (Milk Of Magnesia -) 30 ml PO PRN PRN PRN Reason: CONSTIPATION Last Admin: 01/22/18 19:26 Dose: 30 ml Nitroglycerin (Nitro-Bid 2% Paste -) 1 inch TD Q6HPO [facility] Last Admin: 01/26/18 11:17 Dose: 1 inch Pantoprazole Sodium (Protonix -) 40 mg PO BID [facility] Last Admin: 01/26/18 09:00 Dose: 40 mg Polyethylene Glycol (Miralax (For Daily Use) -) 17 gm PO DAILY [facility] Last Admin: 01/26/18 09:00 Dose: 17 gm Prednisone (Deltasone -) 20 mg PO BID [facility] Last Admin: 01/26/18 09:00 Dose: 20 mg - Objective Vital Signs: Vital Signs Temperature 98.4 F 01/26/18 10:00 Pulse Rate 73 01/26/18 10:00 Respiratory Rate 18 01/26/18 10:00 Blood Pressure 131/52 01/26/18 10:00 O2 Sat by Pulse Oximetry (%) 97 01/26/18 09:00 Constitutional: Yes: Well Nourished, Calm Eyes: Yes: WNL HENT: Yes: WNL Neck: Yes: WNL Cardiovascular: Yes: Regular Rate and Rhythm, S1, S2 Respiratory: Yes: Wheezes (few scattered wheezes) Gastrointestinal: Yes: Normal Bowel Sounds, Soft Extremities: Yes: WNL Edema: No Labs: CBC, BMP 0 Problem List - Problems (1) Pneumonia Code(s): J18.9 - PNEUMONIA, UNSPECIFIED ORGANISM Assessment/Plan Problem List - Problems (1) History of TB (tuberculosis) Code(s): Z86.11 - PERSONAL HISTORY OF TUBERCULOSIS (2) COPD (chronic obstructive pulmonary disease) Code(s): J44.9 - CHRONIC OBSTRUCTIVE PULMONARY DISEASE, UNSPECIFIED (3) Cough Code(s): R05 - COUGH (4) Autoimmune hepatitis Code(s): K75.4 - AUTOIMMUNE HEPATITIS (5) Diabetes Code(s): E11.9 - TYPE 2 DIABETES MELLITUS WITHOUT COMPLICATIONS Qualifiers: Diabetes mellitus type: type 2 (6) HLD (hyperlipidemia) Code(s): E78.5 - HYPERLIPIDEMIA, UNSPECIFIED (7) HTN (hypertension) Code(s): I10 - ESSENTIAL (PRIMARY) HYPERTENSION (8) Transaminitis Code(s): R74.0 - NONSPEC ELEV OF LEVELS OF TRANSAMNS & LACTIC ACID DEHYDRGNSE Assessment/Plan Pneumococcal pneumonia prednisone BD TX O2 as needed No smoking outpatient PFTs DR SCOTT
--- NOTE | 2018-01-26 12:41 | EKG ---
Test Reason : Blood Pressure : / mmHG Vent. Rate : 072 BPM Atrial Rate : 072 BPM P-R Int : 162 ms QRS Dur : 074 ms QT Int : 386 ms P-R-T Axes : 056 -22 167 degrees QTc Int : 422 ms SINUS RHYTHM WITH PREMATURE ATRIAL COMPLEXES VOLTAGE CRITERIA FOR LEFT VENTRICULAR HYPERTROPHY ABNORMAL ECG WHEN COMPARED WITH ECG OF 18-JAN-2018 17:08, PREMATURE ATRIAL COMPLEXES ARE NOW PRESENT T WAVE INVERSION MORE EVIDENT IN ANTERIOR LEADS Confirmed by PAULINA HUTTON MD ([id number]) on 01/26/2018 12:41:10 PM Referred By: JD GOLDBERG DR Confirmed By:PAULINA HUTTON MD
--- NOTE | 2018-01-26 13:26 | PN ---
Progress Note, Physician Chief Complaint: Shortness of breath and chest discomfort History of Present Illness: 72-year-old female, with a history of diabetes, hypertension, hyperlipidemia, COPD, now presented with a cough and shortness of breath. Troponins is mildly elevated. The patient also reports an episode of chest pains while coughing. No such symptoms while walking. She is currently quite comfortable and symptom free. - Current Medication List Current Medications: Active Medications Albuterol Sulfate (Ventolin 0.083% Nebulizer Soln -) 1 amp NEB Q4H PRN PRN Reason: SHORT OF BREATH/WHEEZING Last Admin: 01/24/18 20:48 Dose: 1 amp Albuterol/Ipratropium (Duoneb -) 1 amp NEB RQID [facility] Last Admin: 01/26/18 11:36 Dose: 1 amp Aspirin (Asa -) 81 mg PO DAILY [facility] Last Admin: 01/26/18 09:00 Dose: 81 mg Budesonide/Formoterol Fumarate (Symbicort 160/4.5mcg -) 2 puff IH BID [facility] Last Admin: 01/26/18 09:00 Dose: 2 puff Heparin Sodium (Porcine) (Heparin -) 5,000 unit SQ TID [facility] Last Admin: 01/26/18 06:10 Dose: 5,000 unit Insulin Aspart (Novolog Vial Sliding Scale -) 1 vial SQ ACHS [facility] PRN Reason: Protocol Last Admin: 01/26/18 12:02 Dose: 5 units Insulin Detemir (Levemir Vial) 50 units SQ HS [facility] Last Admin: 01/25/18 21:26 Dose: 50 units Insulin Detemir (Levemir Vial) 60 units SQ AM [facility] Last Admin: 01/26/18 06:10 Dose: 60 units Lisinopril (Prinivil) 20 mg PO DAILY [facility] Last Admin: 01/26/18 09:00 Dose: 20 mg Magnesium Hydroxide (Milk Of Magnesia -) 30 ml PO PRN PRN PRN Reason: CONSTIPATION Last Admin: 01/22/18 19:26 Dose: 30 ml Nitroglycerin (Nitro-Bid 2% Paste -) 1 inch TD Q6HPO [facility] Last Admin: 01/26/18 11:17 Dose: 1 inch Pantoprazole Sodium (Protonix -) 40 mg PO BID [facility] Last Admin: 01/26/18 09:00 Dose: 40 mg Polyethylene Glycol (Miralax (For Daily Use) -) 17 gm PO DAILY [facility] Last Admin: 01/26/18 09:00 Dose: 17 gm Prednisone (Deltasone -) 20 mg PO BID [facility] Last Admin: 01/26/18 09:00 Dose: 20 mg - Objective Vital Signs: Vital Signs Temperature 98.4 F 01/26/18 10:00 Pulse Rate 73 01/26/18 10:00 Respiratory Rate 18 01/26/18 10:00 Blood Pressure 131/52 01/26/18 10:00 O2 Sat by Pulse Oximetry (%) 97 01/26/18 09:00 Constitutional: Yes: Well Nourished, No Distress, Calm Eyes: Yes: WNL, Conjunctiva Clear, EOM Intact HENT: Yes: WNL, Atraumatic, Normocephalic Neck: Yes: WNL, Supple, Trachea Midline Cardiovascular: Yes: WNL, Regular Rate and Rhythm, S1, S2 Respiratory: Yes: WNL, Regular, CTA Bilaterally Gastrointestinal: Yes: WNL, Normal Bowel Sounds, Soft ...Rectal Exam: Yes: Deferred Genitourinary: Yes: WNL Breast(s): Yes: WNL Musculoskeletal: Yes: WNL Extremities: Yes: WNL Edema: No Peripheral Pulses WNL: Yes Peripheral Pulses: Left Radial: 2+, Right Radial: 2+, Left Doralis Pedis: 2+, Right Dorsalis Pedis: 2+, Left Femoral: 2+, Right Femoral: 2+ Integumentary: Yes: WNL Neurological: Yes: WNL, Alert, Oriented Psychiatric: Yes: WNL Labs: CBC, BMP 01/25/18 05:35 01/25/18 05:35 INR, PTT INR 0.96 (0.82-1.09) 01/19/18 01:19 Assessment/Plan The patient has been stable from the cardiac standpoint. There is no evidence of ischemia nor acute coronary syndrome. Symptomatically better. Please arrange for an echocardiogram. Also arrange for a pharmacological nuclear stress test. Continue current regimen. We'll follow results.
[2018-01-26 14:49] VITALS: BP 118/63; PULSE 78
== END 2018-01-26 15:48 | disposition home health service (06) | DRG 194 ==
LOC: JER 16:15 → JERBED 01-19 05:26 → J8W 01-19 09:15 → JSAMEDAYSX 01-19 09:55 → J4S 01-19 13:21
PROVIDERS: ADMIT Internal Medicine; ATTEND Family Medicine
DX: J13 Pneumonia due to Streptococcus pneumoniae (principal); E87.1 Hypo-osmolality and hyponatremia; I24.8 Other forms of acute ischemic heart disease; I10 Essential (primary) hypertension; E78.5 Hyperlipidemia, unspecified; K75.4 Autoimmune hepatitis; E11.65 Type 2 diabetes mellitus with hyperglycemia; E11.40 Type 2 diabetes mellitus with diabetic neuropathy, unspecified; R74.8 Abnormal levels of other serum enzymes; K42.9 Umbilical hernia without obstruction or gangrene; R74.0 Nonspecific elevation of levels of transaminase and lactic acid dehydrogenase [LDH]; R05 Cough; Z87.891 Personal history of nicotine dependence; Z86.11 Personal history of tuberculosis
CPT/HCPCS: 36415; 71046-TC-FY; 71250-TC; 76700-TC; 80048; 80053; 80061; 82550; 82553; 82962; 83036; 83605; 83721; 83735; 84443; 84484; 85025; 85027; 85610; 85730; 87070; 87205; 87899; 93005; 93010; 94640; 97116-GP; 97161-GP; 99285-25; J1644